=== PATIENT | male | born 1960 | race Caucasian/White ===

== ENCOUNTER 2022-08-15 17:33 | Outpatient (OUT) | payer OTHER, SELFPAY ==
[2022-08-15 21:01] LABS: Anion Gap 9.4; BUN Creatinine Ratio 16.3; Carbon Dioxide 28.3 mmol/L (21.0-32.0); Chloride 103 mmol/L (98-107); Chol HDL Ratio 2.2; Cholesterol 101 mg/dL (<=200); Estimated GFR (African America >60 (>=60); Estimated GFR (Non-African Ame >60 (>=60); Glucose 173 mg/dL (74-106); HDL Cholesterol 46 mg/dL (40-60); LDL Cholesterol Calculated 33.6 mg/dL; Potassium 3.7 mmol/L (3.5-5.1); Sodium 137 mmol/L (136-145); Triglycerides 107 mg/dL (<=150); VLDL CHOLESTEROL 21.4 mg/dL
== END 2022-08-15 17:34 | disposition home or self-care (01) ==
LOC: LAB 17:36
PROVIDERS: PCP Internal Medicine; Visit Provider Internal Medicine
DX: E11.9 Type 2 diabetes mellitus without complications (principal); E78.5 Hyperlipidemia, unspecified
CPT/HCPCS: 36415; 80048; 80061

== ENCOUNTER 2022-10-25 08:28 | Outpatient (OUT) | payer OTHER, SELFPAY ==
[2022-10-25 10:27] LABS: Creatinine Urine Random 93.74 mg/dL (20.00-300.00); Microalbum Creatinine Ratio Ur 13.8 mg/g (0.0-29.9); Microalbumin Urine Random <1.3 mg/dL (<=30.0)
[2022-10-25 12:50] LABS: Estimated Average Glucose 131 mg/dL; Glycohemoglobin A1C 6.2 % (4.5-6.2)
== END 2022-10-25 08:29 | disposition home or self-care (01) ==
LOC: LAB 08:30
PROVIDERS: PCP Internal Medicine; Visit Provider Internal Medicine
DX: E11.9 Type 2 diabetes mellitus without complications (principal)
CPT/HCPCS: 36415; 82043; 82570; 83036

== ENCOUNTER 2023-04-25 10:09 | Outpatient (OUT) | payer OTHER, SELFPAY ==
[2023-04-25 10:35] LABS: Basophils Percent Auto 0.5 % (0.2-2.0); Eosinophils Absolute Auto 0.3 10^3/uL (0.0-0.7); Eosinophils Percent Auto 3.2 % (0.9-7.0); Hemoglobin 12.9 g/dL (14.0-18.0); Immature Granulocytes Abs Auto 0.03 10^3/uL (0.00-0.03); Immature Granulocytes Pct Auto 0.4 % (0.0-0.5); Lymphocytes Absolute Auto 1.9 10^3/uL (1.2-3.8); Lymphocytes Percent Auto 24.1 % (20.5-60.0); Mean Corpuscular HGB Conc 33.1 g/dL (29.9-35.2); Mean Corpuscular Hemoglobin 28.5 pg (25.9-34.0); Mean Corpuscular Volume 86.1 fL (80.0-94.0); Mean Platelet Volume 9.5 fL (9.5-13.5); Monocytes Absolute Auto 0.6 10^3/uL (0.3-0.8); Monocytes Percent Auto 7.2 % (1.7-12.0); Neutrophils Absolute Auto 5.1 10^3/uL (1.4-6.5); Neutrophils Percent Auto 64.6 % (43.0-75.0); Platelet Count 265 10^3/uL (150-450); Red Blood Count 4.53 10^6/uL (4.70-6.10); Red Cell Distribution Width 12.6 % (11.0-15.0); White Blood Count 7.9 10^3/uL (4.0-11.0)
[2023-04-25 11:29] LABS: Alanine Aminotransferase 41 U/L (16-63); Albumin Globulin Ratio 1.1; Albumin Level 3.9 g/dL (3.4-5.0); Alkaline Phosphatase 55 U/L (46-116); Anion Gap 14.3; Aspartate Amino Transferase 19 U/L (15-37); BUN Creatinine Ratio 22.7; Bilirubin Total 1.4 mg/dL (0.2-1.0); Calcium 9.3 mg/dL (8.5-10.1); Carbon Dioxide 29.7 mmol/L (21.0-32.0); Chloride 96 mmol/L (98-107); Chol HDL Ratio 1.7; Cholesterol 86 mg/dL (<=200); Estimated GFR (African America >60 (>=60); Estimated GFR (Non-African Ame >60 (>=60); Globulin 3.7 g/dL; Glucose 120 mg/dL (74-106); HDL Cholesterol 50 mg/dL (40-60); LDL Cholesterol Calculated 15.8 mg/dL; Sodium 137 mmol/L (136-145); Total Protein 7.6 g/dL (6.4-8.2); Triglycerides 101 mg/dL (<=150); VLDL CHOLESTEROL 20.2 mg/dL
[2023-04-25 11:32] LABS: Estimated Average Glucose 148 mg/dL; Glycohemoglobin A1C 6.8 % (4.5-6.2)
[2023-04-25 13:27] LABS: Creatinine Urine Random 158.04 mg/dL (20.00-300.00); Microalbum Creatinine Ratio Ur 10.1 mg/g (0.0-29.9); Microalbumin Urine Random 1.6 mg/dL (<=30.0)
== END 2023-04-25 10:10 | disposition home or self-care (01) ==
LOC: LAB 10:10
PROVIDERS: PCP Internal Medicine; Visit Provider Internal Medicine
DX: E11.9 Type 2 diabetes mellitus without complications (principal); I10 Essential (primary) hypertension; E78.2 Mixed hyperlipidemia
CPT/HCPCS: 80053; 80061; 82043; 82570; 83036; 85025

== ENCOUNTER 2023-08-02 09:18 | Outpatient (OUT) | payer OTHER, SELFPAY ==
[2023-08-02 09:37] LABS: Basophils Percent Auto 0.6 % (0.2-2.0); Eosinophils Absolute Auto 0.3 10^3/uL (0.0-0.7); Eosinophils Percent Auto 3.9 % (0.9-7.0); Hematocrit 37.7 % (42.0-54.0); Hemoglobin 12.6 g/dL (14.0-18.0); Immature Granulocytes Abs Auto 0.02 10^3/uL (0.00-0.03); Immature Granulocytes Pct Auto 0.3 % (0.0-0.5); Lymphocytes Absolute Auto 1.6 10^3/uL (1.2-3.8); Lymphocytes Percent Auto 23.9 % (20.5-60.0); Mean Corpuscular HGB Conc 33.4 g/dL (29.9-35.2); Mean Corpuscular Hemoglobin 28.5 pg (25.9-34.0); Mean Corpuscular Volume 85.3 fL (80.0-94.0); Mean Platelet Volume 9.1 fL (9.5-13.5); Monocytes Absolute Auto 0.7 10^3/uL (0.3-0.8); Monocytes Percent Auto 10.1 % (1.7-12.0); Neutrophils Absolute Auto 4.1 10^3/uL (1.4-6.5); Neutrophils Percent Auto 61.2 % (43.0-75.0); Platelet Count 267 10^3/uL (150-450); Red Blood Count 4.42 10^6/uL (4.70-6.10); Red Cell Distribution Width 12.7 % (11.0-15.0); White Blood Count 6.7 10^3/uL (4.0-11.0)
[2023-08-02 10:01] LABS: Alanine Aminotransferase 48 U/L (16-63); Albumin Globulin Ratio 1.1; Albumin Level 3.7 g/dL (3.4-5.0); Alkaline Phosphatase 54 U/L (46-116); Anion Gap 13.2; Aspartate Amino Transferase 21 U/L (15-37); BUN Creatinine Ratio 18.6; Bilirubin Total 1.4 mg/dL (0.2-1.0); Calcium 8.8 mg/dL (8.5-10.1); Carbon Dioxide 29.9 mmol/L (21.0-32.0); Chloride 98 mmol/L (98-107); Chol HDL Ratio 1.8; Cholesterol 91 mg/dL (<=200); Estimated GFR (African America >60 (>=60); Estimated GFR (Non-African Ame >60 (>=60); Globulin 3.4 g/dL; Glucose 124 mg/dL (74-106); HDL Cholesterol 50 mg/dL (40-60); LDL Cholesterol Calculated 27.6 mg/dL; Potassium 3.1 mmol/L (3.5-5.1); Sodium 138 mmol/L (136-145); Total Protein 7.1 g/dL (6.4-8.2); Triglycerides 67 mg/dL (<=150); VLDL CHOLESTEROL 13.4 mg/dL
[2023-08-02 10:01] LABS: Creatinine Urine Random 76.52 mg/dL (20.00-300.00); Microalbum Creatinine Ratio Ur 16.9 mg/g (0.0-29.9); Microalbumin Urine Random <1.3 mg/dL (<=30.0)
[2023-08-02 10:09] LABS: Estimated Average Glucose 128 mg/dL; Glycohemoglobin A1C 6.1 % (4.5-6.2)
== END 2023-08-02 09:19 | disposition home or self-care (01) ==
LOC: LAB 09:19
PROVIDERS: PCP Internal Medicine; Visit Provider Internal Medicine
DX: E78.2 Mixed hyperlipidemia (principal); E11.9 Type 2 diabetes mellitus without complications; I10 Essential (primary) hypertension
CPT/HCPCS: 36415; 80053; 80061; 82043; 82570; 83036; 85025

== ENCOUNTER 2023-08-12 11:28 | Outpatient (OUT) | payer OTHER, SELFPAY ==
--- OUTSIDE RECORDS SUMMARY | 2023-08-12 11:49 | XMS_ITS | CCD ---
Author Organization [facility] Care Team Providers Care Sales Representative Printing Name Role Phone FAJENNIFERD, WOO H Consulting Unavailable FAWWAD, WOO H Primary Care Unavailable FAWWAD, WOO H Admitting Unavailable FAWWAD, WOO H Attending Unavailable FAWWAD, WOO H Consulting Unavailable FAWWAD, WOO H Primary Care Unavailable FAWWAD, WOO H Admitting Unavailable FAWWAD, WOO H Attending Unavailable FAWWAD, WOO H Consulting Unavailable FAWWAD, WOO H Primary Care Unavailable FAWWAD, WOO H Admitting Unavailable FAWWAD, WOO H Referring Unavailable FAWWAD, WOO H Attending Unavailable Joshua Hsieh MD Primary Care Provider Shaikh Heard MD Primary Care Provider MASTER HEARDIKH Attending Unavailable FAWWAD, WOO Attending Unavailable Allergies Allergy Classification Reported Allergen(s) Allergy Type Date of Onset Reaction(s) Facility (1 source) Penicillins Drug Allergy 02-06-2023 Diarrhea [facility] Medications Current Medications Medication Drug Class(es) Dates Sig (Normalized) Sig (Original) amLODIPine 5 mg oral tablet (2 sources) Dihydropyridine Calcium Channel Jozef Start: 03-07-2023 take 1 tablet by mouth once daily amLODIPine (Norvasc) 5 MG tablet Indications: Essential (primary) hypertension (CMS/HCC) TAKE 1 TABLET BY MOUTH DAILY 90 tablet 0 03/07/2023 Active Start: 12-05-2022 take 1 tablet by carmencita th in the morning amLODIPine (Norvasc) 10 MG tablet Take 1 tablet by mouth in the morning. 0 12/05/2022 Active aspirin 81 mg delayed release oral tablet (1 source) Platelet Aggregation Inhibitor, Nonsteroidal Anti-inflammatory Drug take 1 tablet by mouth in the morning aspirin 81 MG EC tablet Take 1 tablet by mouth in the morning. 0 Active atorvastatin 20 mg oral tablet (1 source) HMG-CoA Reductase Inhibitor Start : 12-05 take 1 tablet by mouth in the morning atorvastatin (Lipitor) 20 MG tablet Take 20 mg by mouth in the morning. 0 12/05/2022 Active glipiZIDE 5 mg oral tablet (1 source) Sulfonylurea Start : 12-05 take 1 tablet by mouth in the morning glipiZIDE (Glucotrol) 5 MG tablet Take 5 mg by mouth in the morning and 5 mg in the evening. Take before meals. 0 12/05/2022 Active hydroCHLOROthiazide 25 mg / losartan potassium 100 mg oral tablet (1 source) Thiazide Diuretic, Angiotensin 2 Receptor Jozef Start : 12-05 take 1 tablet by mouth in the morning losartan-hydroCHL OROthiazide (Hyzaar) 100-25 MG tablet Take 1 tablet by mouth in the morning. 0 12/05/2022 Active metFORMIN hydrochloride 1000 mg oral tablet (1 source) Biguanide Start : 11-12 take 1 tablet by mouth in the morning metFORMIN (Glucophage) 1000 MG tablet Take 1,000 mg by mouth in the morning and 1,000 mg in the evening. Take with meals. 0 11/12/2022 Active 1 mg dose 1.5 ml semaglutide 1.34 mg/ml pen injector (3 sources) Start : 04-03 End: 09-29 inject 1 mg by subcutaneous injection every week semaglutide (Ozempic, 1 MG/DOSE,) 2 MG/1.5ML solution pen-injector Indications: Type 2 diabetes mellitus without complication, without long-term current use of insulin (CMS/[facility]) Inject 1 mg under the skin 1 (one) time per week 9 mL 1 04/03/2023 09/30/2023 Active Start: 02-06-2023 End: 04-03-2023 inject 0.25 mg by subcutaneous injection every week semaglutide (Ozempic, 0.25 or 0.5 MG/DOSE,) 2 MG/1.5ML solution pen-injector Indications: Type 2 diabetes mellitus without complication, without long-term current use of insulin (CMS/HCC) Inject 0.25 mg under the skin 1 (one) time per week 1.5 mL 0 02/06/2023 04/03/2023 Discontinued (Dose adjustment) Start: 02-06-2023 End: 05-07-2023 semaglutide (Ozempic, 0.25 o r 0.5 MG/DOSE,) 2 MG/1.5ML solution pen-injector Indications: Type 2 diabetes mellitus without complication, without long-term current use of insulin (CMS/HCC) Inject 0.5 mg under the skin 1 (one) time per week After patient has used 0.25mg dose 4.5 mL 0 02/06/2023 05/07/2023 Active Problems Problem Classification Problem Date Documented Da te Episodic/Chronic Diabetes mellitus without complication (8 sources) Type 2 diabetes mellitus without complications; Translations: [Type 2 diabetes mellitus without complication] Onset: 06-19-2018 Chronic Disorders of lipid metabolism (6 sources) Hyperlipidemia, unspecified; Translations: [Mixed hyperlipidemia] Onset: 06-19-2018 Chronic Essential hypertension (3 sources) Essential (primary) hypertension; Translations: [Benign hypertension] Onset: 11-05-2014 12-03-2021 Chronic Results Test Name Value Interpretation Reference Range Facility GLYCOHEMOGLOBIN A1Con 2022 ADA RECOMMENDATION SEE BELOW Normal [facility] Comment on above: Result Comment: ADA RECOMMENDED LIMIT 4.0 - 6.0 ADA THERAPEUTIC TARGET < 7.0 ACTION SUGGESTED > 7.0 Performed By: #### A 1C #### [facility] [address] [place] [address] Dr. Latisha Lindo Glucose [Mass/Vol] 194 mg/dL Normal [facility] Comment on above: Performed By: #### A 1C #### [facility] [address] [address] [address] Latisha Lindo HbA1c (Bld) [Mass fraction] 8.4 % Critically high 4.5-6.[address] [facility] Comment on above: Performed By: #### A 1C #### [facility] [address] [place] [address] Dr. Latisha Lindo CBC AUTO DIFFon 09-21-2021 BASO # 0.0 103/ul Normal 0.0-0.1 [facility] Comment on above: Performed By: #### C BC #### [facility] [address] [address] [address] Latisha Lindo Basophils/100 WBC (Bld) 0.6 % Normal 0.2-2.0 [facility] Comment on above: Performed By: #### C BC #### [facility] [address] [place] [address] Dr. Latisha Lindo EO # 0.2 103/ul Normal 0.0-0.7 [facility] Comment on above: Performed By: #### C BC #### [facility] [address] [place] [address] Dr. Latisha Lindo Eosinophils/100 WBC (Bld) 3.1 % Normal 0.9-7.0 [facility] Comment on above: Performed By: #### C BC #### [facility] [address] [place] [address] Dr. Latisha Lindo Erythrocyte distribution width (RBC) [Ratio] 13.1 % Normal 11.0-15.0 [facility] Comment on above: Performed By: #### C BC #### [facility] [address] [place] [address] Dr. Latisha Lindo Hematocrit (Bld) [Volume fraction] 40.8 % Critically low 42.0-54.0 [facility] Comment on above: Performed By: #### C BC #### [facility] [address] [place] [address] Dr. Latisha Lindo Hemoglobin (Bld) [Mass/Vol] 13.4 g/dL Critically low 14.0-18.0 [facility] Comment on above: Performed By: #### C BC #### [facility] [address] [place] [address] Dr. Latisha Lindo IG # 0.02 10e3/ul Normal 0.00-0.03 [facility] Comment on above: Performed By: #### C BC #### [facility] [address] [place] [address] Dr. Latisha Lindo IG % 0.3 % Normal 0.0-0.5 [facility] Comment on above: Performed By: #### C BC #### [facility] [address] [place] [address] Dr. Latisha Lindo LYMPH # 1.5 103/ul Normal 1.2-3.8 [facility] Comment on above: Performed By: #### C BC #### [facility] [address] [place] [address] Dr. Latisha Lindo Lymphocytes/100 WBC (Bld) 22.3 % Normal 20.5-60.0 [facility] Comment on above: Performed By: #### C BC #### [facility] [address] [place] [address] Dr. Latisha Lindo MANUAL DIFF REQ NO Normal [facility] Comment on above: Performed By: #### C BC #### [facility] [address] [place] [address] Dr. Latisha Lindo MCH (RBC) [Entitic mass] 28.8 pg Normal 25.9-34.0 [facility] Comment on above: Performed By: #### C BC #### [facility] [address] [place] [address] Dr. Latisha Lindo MCHC (RBC) [Mass/Vol] 32.8 g/dL Normal 29.9-35.2 [facility] Comment on above: Performed By: #### C BC #### [facility] [address] [place] [address] Dr. Latisha Lindo MCV (RBC) [Entitic vol] 87.6 fL Normal 80.0-94.0 [facility] Comment on above: Performed By: #### C BC #### [facility] [address] [place] [address] Dr. Latisha Lindo MONO # 0.6 103/ul Normal 0.3-0.8 [facility] Comment on above: Performed By: #### C BC #### [facility] [address] [place] [address] Dr. Latisha Lindo Monocytes/100 WBC (Bld) 8.3 % Normal 1.7-12.0 [facility] Comment on above: Performed By: #### C BC #### [facility] [address] [address] [address] Latisha Lindo NEUT # 4.4 103/ul Normal 1.4-6.5 [facility] Comment on above: Performed By: #### C BC #### [facility] [address] [address] [address] Latisha Lindo Neutrophils/100 WBC (Bld) 65.4 % Normal 43.0-75.0 [facility] Comment on above: Performed By: #### C BC #### [facility] [address] [address] [address] Latisha Lindo Platelet mean volume (Bld) [Entitic vol] 9.7 fL Normal 9.5-13.5 [facility] Comment on above: Performed By: #### C BC #### [facility] [address] [place] [address] Dr. Latisha Lindo PLT 253 103/ul Normal 150-450 [facility] Comment on above: Performed By: #### C BC #### [facility] [address] [place] [address] Dr. Latisha Lindo RBC 4.66 106/ul Critically low 4.70-6.10 [facility] Comment on above: Performed By: #### C BC #### [facility] [address] [place] [address] Dr. Latisha Lindo WBC 6.8 103/ul Normal 4.0-11.0 [facility] Comment on above: Performed By: #### C BC #### [facility] [address] [place] [address] Dr. Latisha Lindo GLYCOHEMOGLOBIN A1Con 2021 ADA RECOMMENDATION SEE BELOW Normal [facility] Comment on above: Result Comment: ADA RECOMMENDED LIMIT 4.0 - 6.0 ADA THERAPEUTIC TARGET < 7.0 ACTION SUGGESTED > 7.0 Performed By: #### A 1C #### [facility] [address] [place] [address] Dr. Latisha Lindo Glucose [Mass/Vol] 189 mg/dL Normal [facility] Comment on above: Performed By: #### A 1C #### [facility] [address] [address] [address] Latisha Lindo HbA1c (Bld) [Mass fraction] 8.2 % Critically high 4.5-6.2 [facility] Comment on above: Performed By: #### A 1C #### [facility] [address] [address] [address] Latisha Lindo LIPID PROFILEon 09-21-2021 CHOL-HDL RATIO NORM SEE BELOW Normal [facility] Comment on above: Result Comment: 3.3 - 4.4 LOW RISK 4.4 - 7.1 AVERAGE RISK 7.1 - 11.0 MODERATE RISK >11.0 HIGH RISK Performed By: #### L IPID, BMP #### [facility] [address] [place] [address] Dr. Latisha Lindo Cholesterol [Mass/Vol] 126 mg/dL Normal <=200 [facility] Comment on above: Performed By: #### L IPID, BMP #### [facility] [address] [place] [address] Dr. Latisha Lindo Cholesterol in HDL [Mass/Vol] 54 mg/dL Normal 40-60 [facility] Comment on above: Performed By: #### L IPID, BMP #### [facility] [address] [place] [address] Dr. Latisha Lindo Cholesterol in LDL [Mass/Vol] 58.2 mg/dL Normal [facility] Comment on above: Performed By: #### L IPID, BMP #### [facility] [address] [place] [address] Dr. Latisha Lindo Cholesterol.total/Cho lesterol in HDL [Mass ratio] 2.3 {ratio} Normal [facility] Comment on above: Performed By: #### L IPID, BMP #### [facility] [address] [place] [address] Dr. Latisha Lindo HDL NORMAL > or = 60 mg/dl - LOW CARDIOVASCULAR RISK <40 mg/dl - HIGH CARDIOVASCULAR RISK Normal [facility] Comment on above: Performed By: #### L IPID, BMP #### [facility] [address] [address] [address] Latisha Lindo LDL CALC NORMAL SEE BELOW Normal [facility] Comment on above: Result Comment: <100 mg/dl OPTIMAL 100 - 129 mg/dl NEAR OR ABOVE OPTIMAL 130 - 159 mg/dl BORDERLINE HIGH 160 - 189 mg/dl HIGH >190 mg/dl VERY HIGH Performed By: #### L IPID, BMP #### [facility] [address] [address] [address] Latisha Lindo Triglyceride [Mass/Vol] 69 mg/dL Normal <=150 [facility] Comment on above: Performed By: #### L IPID, BMP #### [facility] [address] [address] [address] Latisha Lindo VLDL CALC 13.8 mg/dL Normal [facility] Comment on above: Performed By: #### L IPID, BMP #### [facility] [address] [place] [address] Dr. Latisha Lindo PROF CHEM 8 (BAS METB)on Anion gap [Moles/Vol] 16.1 mmol/L Normal [facility] Comment on above: Performed By: #### L IPID, BMP #### [facility] [address] [place] [address] Dr. Latisha Lindo Calcium [Mass/Vol] 9.8 mg/dL Normal 8.5-10.1 [facility] Comment on above: Performed By: #### L IPID, BMP #### [facility] [address] [place] [address] Dr. Latisha Lindo Chloride [Moles/Vol] 103 mmol/L Normal 98-107 [facility] Comment on above: Performed By: #### L IPID, BMP #### [facility] [address] [place] [address] Dr. Latisha Lindo CO2 [Moles/Vol] 25.7 mmol/L Normal 21.0-32.0 [facility] Comment on above: Performed By: #### L IPID, BMP #### [facility] [address] [place] [address] Dr. Latisha Lindo Creatinine [Mass/Vol] 1.02 mg/dL Normal 0.70-1.30 [facility] Comment on above: Performed By: #### L IPID, BMP #### [facility] [address] [place] [address] Dr. Latisha Lindo EGFR-AF SURINAMESE >60 Normal >=60 [facility] Comment on above: Performed By: #### L IPID, BMP #### [facility] [address] [address] [address] Latisha Lindo EGFR-NON AF SURINAMESE >60 Normal >=60 [facility] Comment on above: Performed By: #### L IPID, BMP #### [facility] [address] [place] [address] Dr. Latisha Lindo Glucose [Mass/Vol] 179 mg/dL Critically high 74-106 [facility] Comment on above: Performed By: #### L IPID, BMP #### [facility] [address] [place] [address] Dr. Latisha Lindo Potassium [Moles/Vol] 3.8 mmol/L Normal 3.5-5.1 [facility] Comment on above: Performed By: #### L IPID, BMP #### [facility] [address] [place] [address] Dr. Latisha Lindo Sodium [Moles/Vol] 141 mmol/L Normal 136-145 [facility] Comment on above: Performed By: #### L IPID, BMP #### [facility] [address] [place] [address] Dr. Latisha Lindo Urea nitrogen [Mass/Vol] 21.0 mg/dL Critically high 7.0-18.0 [facility] Comment on above: Performed By: #### L IPID, BMP #### [facility] [address] [place] [address] Dr. Latisha Lindo Urea nitrogen/Creatinine [Mass ratio] 20.6 mg/mg Normal [facility] Comment on above: Performed By: #### L IPID, BMP #### [facility] [address] [place] [address] Dr. Latisha Lindo GLYCOHEMOGLOBIN A1Con 04-11- 2022 ADA RECOMMENDATION ADA THERAPEUTIC TARGET 6.0 - 7.0 ACTION SUGGESTED > 7.0 Normal [facility] Comment on above: Performed By: #### A 1C #### [facility] [address] [address] [address] Latisha Lindo Glucose [Mass/Vol] 171 mg/dL Normal [facility] Comment on above: Performed By: #### A 1C #### [facility] [address] [place], [place] [address] Dr. Latisha Lnido HbA1c (Bld) [Mass fraction] 7.6 % Critically high <=6.0 [facility] Comment on above: Performed By: #### A 1C #### [facility] [address] [address] [address] Latisha Lindo Colonoscopy w/ or w/o biopsy on 05-25-2013 Transverse colon polyp Rectal polyp Otherwise normal [facility] This order was created through External Result Entry [facility] Encounters Encounter Date Encounter Type Care Provider Facility Start: 05-08-2023 End: 05-08-2023 ambulatory SHAIKH SHEILA Not Available Start: 04-03-2023 Orders Only Shaikh Sheila RODRIGUEZ Work Phone: [facility] Comment on above: Type 2 diabetes jorje itus without complication, without long- term current use of insulin ([facility]) (Primary Dx) Start: 02-06-2023 Patient encounter status Shaik ailyn Heard MD Work Phone: [facility] Start: 02-06-2023 End: 02-06-2023 ambulatory WOO FAWWAD Not Available Start: 03-13-2022 End: 03-14-2022 ambulatory WOO H FAWWAD Facility:[facility]1 Start: 09-21-2021 End: 09-22-2021 ambulatory WOO H FAWWAD Facility:[facility] Start: 05-29-2021 End: 05-30-2021 ambulatory WOO H FAWWAD Facility:[facility] Start: 05-25-2013 Conversion Encounter Joshua guerrero MD Work Phone: [facility] Start: 05-25-2013 Legacy Encounter Joshua martinez MD Work Phone: [facility] Procedures Date Procedure Procedure Detail Performing Clinician Start: 05-25-2013 COLONOSCOPY W/ OR W/ O BIOPSY Joshua Hsieh MD Work Phone: Plan of Treatment Date Care Activity Detail Author Start: 03-21-2024 Glaucoma screening Diabetes: R etinopathy Screening [facility] Start: 12-20-2023 Screening for malign ant neoplasm of colon [facility] Start: 10-26-2023 Urine screening for protein Diabetes: Urine Protein Screening [facility] Start: 05-08-2023 End: 05-08-2023 Patient encounter procedure 05/08/2023 10:00 AM EDT Office Visit [facility] [address] [place] [address] Shaikh Heard MD [address] [place] [id number] [facility] Start: 05-07-2023 Hemoglobin A1c measurement Diabetes: Hemoglobin A1C [facility] Start: 1960 Screening for malign ant neoplasm of colon [facility] Immunizations Immunization Date Immunization Notes Care Provider [facility] 01-22-2019 influenza, injectabl e, quadrivalent, preservative free Shaikh Sheila RODRIGUEZ Work Phone: [facility] 01-22-2019 zoster vaccine recombinant S jana Heard MD Work Phone: [facility] 12-18-2017 influenza, injectabl e, quadrivalent, contains preservative Shaikh Sheila RODRIGUEZ Work Phone: [facility] 12-06-2016 influenza, injectabl e, quadrivalent, contains preservative Shaikh Sheila RODRIGUEZ Work Phone: [facility] 12-07-2015 influenza, injectabl e, quadrivalent, contains preservative Shaikh Sheila RODRIGUEZ Work Phone: [facility] 05-05-2015 tetanus toxoid, redu geraldine diphtheria toxoid, and acellular pertussis vaccine, adsorbed Shaikh Sheila RODRIGUEZ Work Phone: [facility] 11-05-2014 influenza virus vacc ine, whole virus Shaikh Sheila RODRIGUEZ Work Phone: [facility] 12-10-2013 pneumococcal polysaccharide vaccine, 23 valent Shaikh Sheila RODRIGUEZ Work Phone: [facility] Payers Date Payer Category Payer Unknown [id number] 2022 Unknown [employer] [id number] 2022-Present [phone] [address] [place] [address] [id number] 1960 Unknown [id number] 1960 Unknown [id number] 1960 Unknown [id number] 1960 Unknown [id number] 1960 Unknown [id number] 1959 Unknown [id number] Social History Date Type Detail Facility [facility] consumption [facility] Start: 1960 Sex Assigned At Not on file [facility] Start: 02-04-2023 End: 02-06-2023 Gender identity Not on file [facility] Start: 02-06-[address] [facility] Never smoked tobacco [facility] Start: 02-06-2023 Tobacco use and exposure Smokeless tobacco non-user [facility] Start: 02-20-2023 Alcohol intake Current drinke r of alcohol (finding) [facility] Start: 02-04-2023 End: 02-06-2023 History of Social function [facility] Within the last year , have you been afraid of your partner or ex-partner? No [facility] Are you now , , , , never or living with a partner? [facility] How often to you hav e a drink containing alcohol? 2-3 time sa week [facility] How many standard drinks containing alcohol do you have on a typical day? 3 or 4 [facility] How often do you hav e 6 or more drinks on 1 occasion? Less than monthly [facility] How hard is it for y ou to pay for the very basics like food, housing, medical care, and heating Not hard at all [facility] Do you feel stress - tense, restless, nervous, or anxious, or unable to sleep at night because your mind is troubled all the time - these days [OSQ] Not at all [facility] (I/We) worried wheth er (my/our) food would run out before (I/we) got money to buy more. Never true [facility] Start: 02-06-2023 Alcohol Comment occassional [facility] NEGATED: Highlighted rowStart: LITF History of tobacco use Passive smoker [facility] Medical Equipment Procedure Code Equipment Code Equipment Origin al Text Equipment Identifier Dates 1 each by Other route in the morning. [id number] Start: 03-22-2022 1 each by Other route in the morning. [id number] Start: 01-26-2023 Evaluation note Note Date & Type Note Facility Evaluation note Diagnosis Type 2 diabetes mellitus without complication, without long-term current use of insulin ([facility])- Primary documented in this encounter [facility] Summary Purpose Family History No Family History Records FoundNo Family History Records Found Advance Directives No Advanced Directives Records FoundNo Advanced Directives Records Found Additional Source Comments (unrecognized sect ion and content) No Status Records FoundNo Status Records Found INFORMATION SOURCE (unrecogn ized section and content) DATE CREATED AUTHOR 03/15/2022 [facility] DATE CREATED AUTHOR AUTHOR'S ORGANIZ ATION 05/09/2023 [facility] Care Teams (unrecognized sec tion and content) Sales Representative Printing Relationship Specialty Start Date End Date Joshua Hsieh MD [facility] [address] [place] [address] PCP - General 10/12/15 04/19/22 Sales Representative Printing Relationship Specialty Start Date End Date Shaikh Heard MD PCP - General Internal Medicine 08/24/22 FOR RECORDS PERTAINING TO PATIENTS WHO ARE OR HAVE BEEN ENROLLED IN A CHEMICAL DEPENDENCY/SUBSTANCEABUSE PROGRAM, SOME INFORMATION MAY BE OMITTED. This clinical summary was aggregated from multiple sources. Caution should be exercised in using it in the provision of clinical care. This summary normalizes information from multiple sources, and as a consequence, information in this document may materially change the coding, format and clinical context of patient data. In addition, data may be omitted in some cases. CLINICAL DECISIONS SHOULD BE BASED ON THE PRIMARY CLINICAL RECORDS. [facility] [facility]. provides no warranty or guarantee of the accuracy or completeness of information in this document.
[2023-08-12 12:26] LABS: Percent Iron Saturation 10.2 %
[2023-08-13 05:08] LABS: Transferrin 275 mg/dL (177-329)
== END 2023-08-12 11:29 | disposition home or self-care (01) ==
LOC: LAB 11:29
PROVIDERS: PCP Internal Medicine; Visit Provider Internal Medicine
DX: D50.9 Iron deficiency anemia, unspecified (principal)
CPT/HCPCS: 36415; 82607; 82728; 82746; 83540; 83550; 84466

== ENCOUNTER 2023-09-10 14:33 | Outpatient (OUT) | payer OTHER, SELFPAY ==
--- OUTSIDE RECORDS SUMMARY | 2023-09-10 14:36 | XMS_ITS | CCD ---
Author Organization [facility] Care Team Providers Care Local Hazmat Driver Name Role Phone FAWJOSEPHINED, WOO H Consulting Unavailable FAWWAD, WOO H [...] Joshua Hsieh MD Primary Care Provider Shaikh Sosa MD Primary Care Provider FALACY, WOO Attending Unavailable FAWWAD, WOO Attending Unavailable FAWWAD, WOO Attending Unavailable DUSTY COLEMAN Attending Unavailable Allergies Allergy Classification Reported Allergen(s) Allergy Type Date of Onset Reaction(s) Facility (1 source) Penicillins Drug Allergy 02-06-2023 Diarrhea [facility] Healthcare Medications Current Medications Medication Drug Class(es) [...] complication, without long-term current use of insulin ([facility]) Inject 1 mg under the [...] 2022 ADA RECOMMENDATION SEE BELOW Normal [facility] Comment on above: Result Comment: ADA RECOMMENDED LIMIT 4.0 - 6.0 ADA THERAPEUTIC TARGET < 7.0 ACTION SUGGESTED > 7.0 Performed By: #### A 1C #### [facility] [address] [address] [address] Latisha Lindo Glucose [Mass/Vol] 194 mg/dL Normal [facility] Comment on above: Performed By: #### A 1C #### [facility] [address] [address] [address] Latisha Lindo HbA1c (Bld) [Mass fraction] 8.4 % Critically high 4.5-6.2 [facility] Comment on above: Performed By: #### A 1C #### [facility] [address] [address] [address] Latisha Lindo CBC AUTO DIFFon 09-21-2021 BASO # 0.0 103/ul Normal 0.0-0.1 [facility] Comment on above: Performed By: #### C BC #### [facility] [address] [place] [address] Dr. Latisha Lindo Basophils/100 WBC (Bld) 0.6 % Normal 0.2-2.0 [facility] Comment on above: Performed By: #### C BC #### [facility] [address] [place] [address] Dr. Latisha Lindo EO # 0.2 103/ul Normal 0.0-0.7 [facility] Comment on above: Performed By: #### C BC #### [facility] [address] [place] [address] Dr. Latisha Lindo Eosinophils/100 WBC (Bld) 3.1 % Normal 0.9-7.0 [facility] Comment on above: Performed By: #### C BC #### [facility] [address] [place] [address] Dr. Latisha Lindo Erythrocyte distribution width (RBC) [Ratio] 13.1 % Normal 11.0-15.0 [facility] Comment on above: Performed By: #### C BC #### [facility] [address] [place] [address] Dr. Latisha Lindo Hematocrit (Bld) [Volume fraction] 40.8 % Critically low 42.0-54.0 [facility] Comment on above: Performed By: #### C BC #### [facility] [address] [place] [address] Dr. Latisha Lindo Hemoglobin (Bld) [Mass/Vol] 13.4 g/dL Critically low 14.0-18.0 [facility] Comment on above: Performed By: #### C BC #### [facility] [address] [place] [address] Dr. Latisha Lindo IG # 0.02 10e3/ul Normal 0.00-0.03 [facility] Comment on above: Performed By: #### C BC #### [facility] [address] [place] [address] Dr. Latisha Lindo IG % 0.3 % Normal 0.0-0.5 [facility] Comment on above: Performed By: #### C BC #### [facility] [address] [place] [address] Dr. Latisha Lindo LYMPH # 1.5 103/ul Normal 1.2-3.8 [facility] Comment on above: Performed By: #### C BC #### [facility] [address] [place] [address] Dr. Latisha Lindo Lymphocytes/100 WBC (Bld) 22.3 % Normal 20.5-60.0 [facility] Comment on above: Performed By: #### C BC #### [facility] [address] [place] [address] Dr. Latisha Lindo MANUAL DIFF REQ NO Normal [facility] Comment on above: Performed By: #### C BC #### [facility] [address] [place] [address] Dr. Latisha Lindo MCH (RBC) [Entitic mass] 28.8 pg Normal 25.9-34.0 [facility] Comment on above: Performed By: #### C BC #### [facility] [address] [place] [address] Dr. Latisha Lindo MCHC (RBC) [Mass/Vol] 32.8 g/dL Normal 29.9-35.2 [facility] Comment on above: Performed By: #### C BC #### [facility] [address] [place] [address] Dr. Latisha Lindo MCV (RBC) [Entitic vol] 87.6 fL Normal 80.0-94.0 [facility] Comment on above: Performed By: #### C BC #### [facility] [address] [place] [address] Dr. Latisha Lindo MONO # 0.6 103/ul Normal 0.3-0.8 [facility] Comment on above: Performed By: #### C BC #### [facility] [address] [place] [address] Dr. Latisha Lindo Monocytes/100 WBC (Bld) 8.3 % Normal 1.7-12.0 [facility] Comment on above: Performed By: #### C BC #### [facility] [address] [place] [address] Dr. Latisha Lindo NEUT # 4.4 103/ul Normal 1.4-6.5 [facility] Comment on above: Performed By: #### C BC #### [facility] [address] [place] [address] Dr. Latisha Lindo Neutrophils/100 WBC (Bld) 65.4 % Normal 43.0-75.0 [facility] Comment on above: Performed By: #### C BC #### [facility] [address] [place] [address] Dr. Latisha Lindo Platelet mean volume (Bld) [Entitic vol] 9.7 fL Normal 9.5-13.5 [facility] Comment on above: Performed By: #### C BC #### [facility] [address] [place] [address] Dr. Latisha Lindo PLT 253 103/ul Normal 150-450 [facility] Comment on above: Performed By: #### C BC #### [facility] [address] [place] [address] Dr. Latisha Lindo RBC 4.66 106/ul Critically low 4.70-6.10 [facility] Comment on above: Performed By: #### C BC #### [facility] [address] [place] [address] Dr. Latisha Lindo WBC 6.8 103/ul Normal 4.0-11.0 [facility] Comment on above: Performed By: #### C BC #### [facility] [address] [place] [address] Dr. Latisha Lindo GLYCOHEMOGLOBIN A1Con 2021 ADA RECOMMENDATION SEE BELOW Normal [facility] Comment on above: Result Comment: ADA RECOMMENDED LIMIT 4.0 - 6.0 ADA THERAPEUTIC TARGET < 7.0 ACTION SUGGESTED > 7.0 Performed By: #### A 1C #### [facility] [address] [place] [address] Dr. Latisha Lindo Glucose [Mass/Vol] 189 mg/dL Normal [facility] Comment on above: Performed By: #### A 1C #### [facility] [address] [address] [address] Latisha Lindo HbA1c (Bld) [Mass fraction] 8.2 % Critically high 4.5-6.2 [facility] Comment on above: Performed By: #### A 1C #### [facility] [address] [address] [address] Latisha Lindo LIPID PROFILEon 09-21-2021 CHOL-HDL RATIO NORM SEE BELOW Normal [facility] Comment on above: Result Comment: 3.3 - 4.4 LOW RISK 4.4 - 7.1 AVERAGE RISK 7.1 - 11.0 MODERATE RISK >11.0 HIGH RISK Performed By: #### L IPID, BMP #### [facility] [address] [place] [address] Dr. Latisha Lindo Cholesterol [Mass/Vol] 126 mg/dL Normal <=200 [facility] Comment on above: Performed By: #### L IPID, BMP #### [facility] [address] [address] [address] Latisha Lindo Cholesterol in HDL [Mass/Vol] 54 mg/dL Normal 40-60 [facility] Comment on above: Performed By: #### L IPID, BMP #### [facility] [address] [place] [address] Dr. Latisha Lindo Cholesterol in LDL [Mass/Vol] 58.2 mg/dL Normal [facility] Comment on above: Performed By: #### L IPID, BMP #### [facility] [address] [address] [address] aLtisha Lindo Cholesterol.total/Cho lesterol in HDL [Mass ratio] 2.3 {ratio} Normal [facility] Comment on above: Performed By: #### L IPID, BMP #### [facility] [address] [address] [address] Latisha Lindo HDL NORMAL > or = 60 mg/dl - LOW CARDIOVASCULAR RISK <40 mg/dl - HIGH CARDIOVASCULAR RISK Normal [facility] Comment on above: Performed By: #### L IPID, BMP #### [facility] [address] [place] [address] Dr. Latisha Lindo LDL CALC NORMAL SEE BELOW Normal [facility] Comment on above: Result Comment: <100 mg/dl OPTIMAL 100 - 129 mg/dl NEAR OR ABOVE OPTIMAL 130 - 159 mg/dl BORDERLINE HIGH 160 - 189 mg/dl HIGH >190 mg/dl VERY HIGH Performed By: #### L IPID, BMP #### [facility] [address] [place] [address] Dr. Latisha Lindo Triglyceride [Mass/Vol] 69 mg/dL Normal <=150 [facility] Comment on above: Performed By: #### L IPID, BMP #### [facility] [address] [place] [address] Dr. Latisha Lindo VLDL CALC 13.8 mg/dL Normal [facility] Comment on above: Performed By: #### L IPID, BMP #### [facility] [address] [place] [address] Dr. Latisha Lindo PROF CHEM 8 (BAS METB)on Anion gap [Moles/Vol] 16.1 mmol/L Normal [facility] Comment on above: Performed By: #### L IPID, BMP #### [facility] [address] [place] [address] Dr. Latisha Lindo Calcium [Mass/Vol] 9.8 mg/dL Normal 8.5-10.1 [facility] Comment on above: Performed By: #### L IPID, BMP #### [facility] [address] [place] [address] Dr. Latisha Lindo Chloride [Moles/Vol] 103 mmol/L Normal 98-107 [facility] Comment on above: Performed By: #### L IPID, BMP #### [facility] [address] [place] [address] Dr. Latisha Lindo CO2 [Moles/Vol] 25.7 mmol/L Normal 21.0-32.0 [facility] Comment on above: Performed By: #### L IPID, BMP #### [facility] [address] [address] [address] Latisha Lindo Creatinine [Mass/Vol] 1.02 mg/dL Normal 0.70-1.30 [facility] Comment on above: Performed By: #### L IPID, BMP #### [facility] [address] [address] [address] Latisha Lindo EGFR-AF KYRGYZ >60 Normal >=60 [facility] Comment on above: Performed By: #### L IPID, BMP #### [facility] [address] [address] [address] Latisha Lindo EGFR-NON AF KYRGYZ >60 Normal >=60 [facility] Comment on above: Performed By: #### L IPID, BMP #### [facility] [address] [address] [address] Latisha Lindo Glucose [Mass/Vol] 179 mg/dL Critically high 74-106 [facility] Comment on above: Performed By: #### L IPID, BMP #### [facility] [address] [place] [address] Dr. Latisha Lindo Potassium [Moles/Vol] 3.8 mmol/L Normal 3.5-5.1 [facility] Comment on above: Performed By: #### L IPID, BMP #### [facility] [address] [place] [address] Dr. Latisha Lindo Sodium [Moles/Vol] 141 mmol/L Normal 136-145 [facility] Comment on above: Performed By: #### L IPID, BMP #### [facility] [address] [place] [address] Dr. Latisha Lindo Urea nitrogen [Mass/Vol] 21.0 mg/dL Critically high 7.0-18.0 [facility] Comment on above: Performed By: #### L IPID, BMP #### [facility] [address] [place] [address] Dr. Latisha Lindo Urea nitrogen/Creatinine [Mass ratio] 20.6 mg/mg Normal [facility] Comment on above: Performed By: #### L IPID, BMP #### [facility] [address] [place], [place] [address] Dr. Latisha Lindo GLYCOHEMOGLOBIN A1Con 2021 ADA RECOMMENDATION ADA THERAPEUTIC TARGET 6.0 - 7.0 ACTION SUGGESTED > 7.0 Normal [facility] Comment on above: Performed By: #### A 1C #### [facility] [address], [place] [address] Dr. Latisha Lindo Glucose [Mass/Vol] 171 mg/dL Normal [facility] Comment on above: Performed By: #### A 1C #### [facility] [address], [place] [address] Dr. Latisha Lindo HbA1c (Bld) [Mass fraction] 7.6 % Critically high <=6.0 [facility] Comment on above: Performed By: #### A 1C #### [facility] [address] [address] [address] Latisha Lindo Colonoscopy w/ or w/o biopsy on 05-25-2013 Transverse colon polyp Rectal polyp Otherwise normal [facility] This order was created through External Result Entry [facility] Encounters Encounter Date Encounter Type Care Provider Facility Start: 08-21-2023 End: 08-21-2023 ambulatory DUSTY COLEMAN Not Available Start: 08-12-2023 End: 08-12-2023 ambulatory SHAIKH SHEILA Not Available Start: 05-08-2023 End: 05-08-2023 ambulatory SHAIKH SHEILA Not Available Start: 04-03-2023 Orders Only Shaikh Sheila RODRIGUEZ Work Phone: [facility] Comment on above: Type 2 diabetes jorje itus without complication, without long- term current use of insulin ([facility]) (Primary Dx) Start: 02-06-2023 Patient encounter status Shaik ailyn Sosa MD Work Phone: [facility] Start: 02-06-2023 End: 02-06-2023 ambulatory SHAIKH SHEILA Not Available Start: 03-13-2022 End: 03-14-2022 ambulatory SHAIKH Ailyn SOSA Facility: Start: 09-21-2021 End: 09-22-2021 ambulatory SHAIKH Ailyn SOSA Facility:[facility] Start: 05-29-2021 End: 05-30-2021 ambulatory [facility] Ailyn SOSA Facility:[facility] Start: 05-25-2013 Conversion Encounter Joshua guerrero MD Work Phone: [facility] Start: 05-25-2013 Legacy Encounter Joshua martinez MD Work Phone: [facility] Procedures Date Procedure Procedure Detail Performing Clinician Start: 05-25-2013 COLONOSCOPY W/ OR W/ O BIOPSY Joshua Hsieh MD Work Phone: Plan of Treatment Date Care Activity Detail Author Start: 03-21-2024 Glaucoma screening Diabetes: R etinopathy Screening [facility] Start: 12-20-2023 Screening for malign ant neoplasm of colon [facility] Start: 10-26-2023 Urine screening for protein Diabetes: Urine Protein Screening [facility] Start: 05-08-2023 End: 05-08-2023 Patient encounter procedure 05/08/2023 10:00 AM EDT Office Visit [facility] [address] [place] [address] Shaikh Sosa MD [address] [place] [id number] [facility] Start: 05-07-2023 Hemoglobin A1c measurement Diabetes: Hemoglobin A1C [facility] Start: 1960 Screening for malign ant neoplasm of colon [facility] Immunizations Immunization Date Immunization Notes Care Provider [facility] 01-22-2019 influenza, injectabl e, quadrivalent, preservative free Shaikh Sheila RODRIGUEZ Work Phone: [facility] 01-22-2019 zoster vaccine recombinant S jana Sosa MD Work Phone: [facility] 12-18-2017 influenza, injectabl e, quadrivalent, contains preservative Shaikh Sheila RODRIGUEZ Work Phone: [facility] 12-06-2016 influenza, injectabl e, quadrivalent, contains preservative Shaikh Sheila RODRIGUEZ Work Phone: [facility] 12-07-2015 influenza, injectabl e, quadrivalent, contains preservative Shaikh Sheila RODRIGUEZ Work Phone: [facility] 05-05-2015 tetanus toxoid, redu geraldine diphtheria toxoid, and acellular pertussis vaccine, adsorbed Shaikh Sheila RODRIGUEZ Work Phone: [facility] 11-05-2014 influenza virus vacc ine, whole virus Shaikh Sheila RODRIGUEZ Work Phone: [facility] 12-10-2013 pneumococcal polysaccharide vaccine, 23 valent Shaikh Sheila RODRIGUEZ Work Phone: [facility] Payers Date Payer Category Payer Unknown [facility] [id number] 2022-[facility] [phone] [address] [place] [id number] 2022 Unknown [id number] 1960 Unknown [id number] 1960 Unknown [id number] 1960 Unknown [id number] 93 1960 Unknown [id number] 1960 Unknown [id number] 1960 Unknown [id number] 1960 Unknown [id number] 1959 Unknown [id number] Social History Date Type Detail Facility Tobacco smoking stat [facility] Tobacco smoking consumption unknown [facility] Start: 1960 Sex Assigned At Not on file [facility] Start: 02-04-2023 End: 02-06-2023 Gender identity Not on file [facility] Start: 02-06-2023 Tobacco smoking stat [facility] Never smoked tobacco [facility] Start: 02-06-2023 Tobacco use and exposure Smokeless tobacco non-user [facility] Start: 02-20-2023 Alcohol intake Current drinke [...] Not at all [facility] (I/We) worried yessenia er (my/our) food would run out before (I/we) got money to buy more. Never true [facility] Start: 02-06-2023 Alcohol Comment occassional [facility] NEGATED: Highlighted rowStart: CHRISTOPHER History of tobacco use Passive smoker [facility] Medical Equipment Procedure Code Equipment Code Equipment Origin al Text Equipment Identifier Dates 1 each by Other route in the morning. [id number] Start: 03-22-2022 1 each by Other route in the morning. [id number] Start: 01-26-2023 Evaluation note Note Date & Type Note Facility Evaluation note Diagnosis Type 2 diabetes mellitus without complication, without long-term current use of insulin ([facility])- Primary documented in this encounter [facility] Summary Purpose Family History No Family History Records FoundNo Family History Records Found Advance Directives No Advanced Directives Records FoundNo Advanced Directives Records Found Additional Source Comments (unrecognized sect ion and content) No Status Records FoundNo Status Records Found INFORMATION SOURCE (unrecogn ized section and content) DATE CREATED AUTHOR 03/15/2022 [facility] DATE CREATED AUTHOR AUTHOR'S ORGANIZ ATION 08/22/2023 [facility] Care Teams (unrecognized sec tion and content) Local Hazmat Driver Relationship Specialty Start Date End Date Joshua Hsieh MD [facility] [address] [place] [address] PCP - General 10/12/15 04/19/22 Local Hazmat Driver Relationship Specialty Start Date End Date Shaikh Sosa MD PCP - General Internal Medicine 08/24/22 [...] BE BASED ON THE PRIMARY CLINICAL RECORDS. new test company [facility]. provides no warranty or guarantee of the accuracy or completeness of information in this document.
== END 2023-09-10 14:34 | disposition home or self-care (01) ==
LOC: PST 14:33
PROVIDERS: PCP Internal Medicine; Visit Provider Surgery
DX: Z01.818 Encounter for other preprocedural examination (principal); Z12.11 Encounter for screening for malignant neoplasm of colon

== ENCOUNTER 2023-09-17 07:51 | Day surgery (SDC) | payer OTHER, SELFPAY ==
--- OUTSIDE RECORDS SUMMARY | 2023-09-17 07:56 | XMS_ITS ---
Patient Summarization (C-CDA 2.1 CCD) Created on: September 17, 2023 MIKAL DANIELS : 1960 Sex: Male Author Organization Sample organization Care Team Providers Care Hand Compositor Name Role Phone FAWWAD, WOO H Consulting Unavailable FAWWAD, WOO [...] Unavailable Joshua Hsieh MD Primary Care Provider [phone] Shaikh Sosa MD Primary Care Provider FAWWAD, WOO Attending Unavailable FAWWAD, WOO Attending Unavailable FAWWAD, WOO Attending Unavailable VIRGINIADUSTY Attending Unavailable Allergies Allergy Classification Reported Allergen(s) Allergy Type Date of Onset Reaction(s) Facility (1 source) Penicillins Drug Allergy 02-06-2023 Diarrhea [facility] Encounters Encounter Date Encounter Type Care Provider Facility Start: 08-21-2023 End: 08-21-2023 ambulatory DUSTY COLEMAN Not Available Start: 08-12-2023 End: 08-12-2023 ambulatory SHAIKH SERAFINWWAD Not Available Start: 05-08-2023 End: 05-08-2023 ambulatory WOO FAWWAD Not Available Start: 04-03-2023 Orders Only Shaikh Sheila RODRIGUEZ Work Phone: [facility] Comment on above: Type 2 diabetes jorje itus without complication, without long- term current use of insulin ([facility]/HCC) (Primary Dx) Start: 02-06-2023 Patient encounter status Shaik ailyn Sosa MD Work Phone: [facility] Start: 02-06-2023 End: 02-06-2023 ambulatory SHAIKH SHEILA Not Available Start: 03-13-2022 End: 03-14-2022 ambulatory SHAIKH Ailyn SOSA Facility:[facility]1 Start: 09-21-2021 End: 09-22-2021 ambulatory SHAIKH Ailyn SOSA Facility:[facility] Start: 05-29-2021 End: 05-30-2021 ambulatory SHAIKH Ailyn SOSA Facility:[facility] Start: 05-25-2013 Conversion Encounter Joshua guerrero MD Work Phone: [facility] Start: 05-25-2013 Legacy Encounter Joshua martinez MD Work Phone: [facility] Procedure Code Equipment Code Equipment Origin al Text Equipment Identifier Dates 1 each by Other route in the morning. [id number] Start: 03-22-2022 1 each by Other route in the morning. [id number] Start: 01-26-2023 Immunizations Immunization Date Immunization Notes Care Provider [facility] 01-22-2019 influenza, injectabl e, quadrivalent, preservative free Shaikh Sheila RODRIGUEZ Work Phone: [facility] 01-22-2019 zoster vaccine recombinant S jana Sosa MD Work Phone: [facility] 12-18-2017 influenza, injectabl e, quadrivalent, contains preservative Shaikh Sheila RODRIGUEZ Work Phone: [facility] 12-06-2016 influenza, injectabl e, quadrivalent, contains preservative Shaikh Sheila RODRIGUEZ Work Phone: [facility] 12-07-2015 influenza, injectabl e, quadrivalent, contains preservative Shaikh Sheila RODRIGUEZ Work Phone: [facility] 05-05-2015 tetanus toxoid, redu geraldine diphtheria toxoid, and acellular pertussis vaccine, adsorbed Shaikh Sheila RODRIGUEZ Work Phone: [facility] 11-05-2014 influenza virus vacc ine, whole virus Shaikh Sheila RODRIGUEZ Work Phone: [facility] 12-10-2013 pneumococcal polysaccharide vaccine, 23 valent Shaikh Sheila RODRIGUEZ Work Phone: [facility] Medications Current Medications Medication Drug Class(es) Dates [...] long-term current use of insulin (CMS/HCC) Inject 1 mg under the skin 1 [...] dose 4.5 mL 0 02/06/2023 05/07/2023 Active Payers Date Payer Category Payer Unknown [facility] [id number] 2022-Present [phone] [address] [place] [id number] 2022 Unknown [id number] 1960 Unknown [id number] 1960 Unknown [id number] 1960 Unknown [id number] 1960 Unknown [id number] 1960 Unknown [id number] 1960 Unknown [id number] 1960 Unknown [id number] 1959 Unknown [id number] Plan of Treatment Date Care Activity Detail Author Start: 03-21-2024 Glaucoma screening Diabetes: R etinopathy Screening [facility] Start: 12-20-2023 Screening for malign ant neoplasm of colon [facility] Start: 10-26-2023 Urine screening for protein Diabetes: Urine Protein Screening [facility] Start: 05-08-2023 End: 05-08-2023 Patient encounter procedure 05/08/2023 10:00 AM EDT Office Visit [facility] [address] [place] [id number] Shaikh Sosa MD [address] [place] [id number] [facility] Start: 05-07-2023 Hemoglobin A1c measurement Diabetes: Hemoglobin A1C [facility] Start: 1960 Screening for malign ant neoplasm of colon [facility] Problems Problem Classification Problem Date Documented Da te Episodic/Chronic Diabetes mellitus without complication (8 sources) Type 2 diabetes mellitus without complications; Translations: [Type 2 diabetes mellitus without complication] Onset: 06-19-2018 Chronic Disorders of lipid metabolism (6 sources) Hyperlipidemia, unspecified; Translations: [Mixed hyperlipidemia] Onset: 06-19-2018 Chronic Essential hypertension (3 sources) Essential (primary) hypertension; Translations: [Benign hypertension] Onset: 11-05-2014 12-03-2021 Chronic Procedures Date Procedure Procedure Detail Performing Clinician Start: 05-25-2013 COLONOSCOPY W/ OR W/ O BIOPSY Joshua Hsieh MD Work Phone: Results Test Name Value Interpretation Reference Range Facility GLYCOHEMOGLOBIN A1Con 2022 ADA RECOMMENDATION SEE BELOW Normal [facility] Comment on above: Result Comment: ADA RECOMMENDED LIMIT 4.0 - 6.0 ADA THERAPEUTIC TARGET < 7.0 ACTION SUGGESTED > 7.0 Performed By: #### A 1C #### [facility] [address] [place] [address] Dr. Latisha Lindo Glucose [Mass/Vol] 194 mg/dL Normal [facility] Comment on above: Performed By: #### A 1C #### [facility] [address] [place] [address] Dr. Latisha Lindo HbA1c (Bld) [Mass fraction] 8.4 % Critically high 4.5-6.[address] [facility] Comment on above: Performed By: #### A 1C #### [facility] [address] [place] [address] Dr. Latisha Lindo CBC AUTO DIFFon 09-21-2021 BASO # 0.0 103/ul Normal 0.0-0.[address] [facility] Comment on above: Performed By: #### C BC #### [facility] [address] [place] [address] Dr. Latisha Lindo Basophils/100 WBC (Bld) 0.6 % Normal 0.2-2.0 [facility] Comment on above: Performed By: #### C BC #### [facility] [address] [place] [address] Dr. Latisha Lindo EO # 0.2 103/ul Normal 0.0-0.[address] [facility] Comment on above: Performed By: #### C BC #### [facility] [address] [place] [address] Dr. Latisha Lindo Eosinophils/100 WBC (Bld) 3.1 % Normal 0.9-7.0 [facility] Comment on above: Performed By: #### C BC #### [facility] [address] [place] [address] Dr. Latisha Lindo Erythrocyte distribution width (RBC) [Ratio] 13.1 % Normal 11.0-15.[address] [facility] Comment on above: Performed By: #### C BC #### [facility] [address] [place] [address] Dr. Latisha Lindo Hematocrit (Bld) [Volume fraction] 40.8 % Critically low 42.0-54.[address] [facility] Comment on above: Performed By: #### C BC #### [facility] [address] [place] [address] Dr. Latisha Lindo Hemoglobin (Bld) [Mass/Vol] 13.4 g/dL Critically low 14.0-18.[address] [facility] Comment on above: Performed By: #### C BC #### [facility] [address] [place] [address] Dr. Latisha Lindo IG # 0.02 10e3/ul Normal 0.00-0.[address] [facility] Comment on above: Performed By: #### C BC #### [facility] [address] [place] [address] Dr. Latisha Lindo IG % 0.3 % Normal 0.0-0.5 [facility] Comment on above: Performed By: #### C BC #### [facility] [address] [place] [address] Dr. Latisha Lindo LYMPH # 1.5 103/ul Normal 1.2-3.8 [facility] Comment on above: Performed By: #### C BC #### [facility] [address] [place] [address] Dr. Latisha Lindo Lymphocytes/100 WBC (Bld) 22.3 % Normal 20.5-60.0 [facility] Comment on above: Performed By: #### C BC #### [facility] [address] [place] [address] Dr. Latisha Lindo MANUAL DIFF REQ NO Normal [facility] Comment on above: Performed By: #### C BC #### [facility] [address] [place] [address] Dr. Latisha Lindo MCH (RBC) [Entitic mass] 28.8 pg Normal 25.9-34.[address] [facility] Comment on above: Performed By: #### C BC #### [facility] [address] [place] [address] Dr. Latisha Lindo MCHC (RBC) [Mass/Vol] 32.8 g/dL Normal 29.9-35.2 [facility] Comment on above: Performed By: #### C BC #### [facility] [address] [place] [address] Dr. Latisha Lindo MCV (RBC) [Entitic vol] 87.6 fL Normal 80.0-94.[address] [facility] Comment on above: Performed By: #### C BC #### [facility] [address] [place] [address] Dr. Latisha Lindo MONO # 0.6 103/ul Normal 0.3-0.[address] [facility] Comment on above: Performed By: #### C BC #### [facility] [address] [place] [address] Dr. Latisha Lindo Monocytes/100 WBC (Bld) 8.3 % Normal 1.7-12.0 [facility] Comment on above: Performed By: #### C BC #### [facility] [address] [place] [address] Dr. Latisha Lindo NEUT # 4.4 103/ul Normal 1.4-6.5 [facility] Comment on above: Performed By: #### C BC #### [facility] [address] [place] [address] Dr. Latisha Lindo Neutrophils/100 WBC (Bld) 65.4 % Normal 43.0-75.0 [facility] Comment on above: Performed By: #### C BC #### [facility] [address] [place] [address] Dr. Latisha Lindo Platelet mean volume (Bld) [Entitic vol] 9.7 fL Normal 9.5-13.[address] [facility] Comment on above: Performed By: #### C BC #### [facility] [address] [place] [address] Dr. Latisha Lindo PLT 253 103/ul Normal 150-[address] [facility] Comment on above: Performed By: #### C BC #### [facility] [address] [place] [address] Dr. Latisha Lindo RBC 4.66 106/ul Critically low 4.70-6.10 [facility] Comment on above: Performed By: #### C BC #### [facility] [address] [place] [address] Dr. Latisha Lindo WBC 6.8 103/ul Normal 4.0-11.[address] [facility] Comment on above: Performed By: #### C BC #### [facility] [address] [place] [address] Dr. Latisha Lindo GLYCOHEMOGLOBIN A1Con 2021 ADA RECOMMENDATION SEE BELOW Normal [facility] Comment on above: Result Comment: ADA RECOMMENDED LIMIT 4.0 - 6.0 ADA THERAPEUTIC TARGET < 7.0 ACTION SUGGESTED > 7.0 Performed By: #### A 1C #### [facility] [address] [place] [address] Dr. Latisha Lindo Glucose [Mass/Vol] 189 mg/dL Normal [facility] Comment on above: Performed By: #### A 1C #### [facility] [address] [place] [address] Dr. Latisha Lindo HbA1c (Bld) [Mass fraction] 8.2 % Critically high 4.5-6.[address] [facility] Comment on above: Performed By: #### A 1C #### [facility] [address] [place] [address] Dr. Latisha Lindo LIPID PROFILEon 09-21-2021 CHOL-HDL RATIO NORM SEE BELOW Normal [facility] Comment on above: Result Comment: 3.3 - 4.4 LOW RISK 4.4 - 7.1 AVERAGE RISK 7.1 - 11.0 MODERATE RISK >11.0 HIGH RISK Performed By: #### L IPID, BMP #### [facility] [address] [address] [address] Latisha Lindo Cholesterol [Mass/Vol] 126 mg/dL Normal <=[address] [facility] Comment on above: Performed By: #### L IPID, BMP #### [facility] [address] [address] [address] Latisha Lindo Cholesterol in HDL [Mass/Vol] 54 mg/dL Normal 40-[address] [facility] Comment on above: Performed By: #### L IPID, BMP #### [facility] [address] [address] [address] Latisha Lindo Cholesterol in LDL [Mass/Vol] 58.2 mg/dL Normal [facility] Comment on above: Performed By: #### L IPID, BMP #### [facility] [address] [place] [address] Dr. Latisha Lindo Cholesterol.total/Cho lesterol in HDL [Mass ratio] 2.3 {ratio} Normal [facility] Comment on above: Performed By: #### L IPID, BMP #### [facility] [address] [place] [address] Dr. Latisha Lindo HDL NORMAL > or = 60 mg/dl - LOW CARDIOVASCULAR RISK <40 mg/dl - HIGH CARDIOVASCULAR RISK Normal [facility] Comment on above: Performed By: #### L IPID, BMP #### [facility] [address] [place] [address] Dr. Latisha Lindo LDL CALC NORMAL SEE BELOW Normal [facility] Comment on above: Result Comment: <100 mg/dl OPTIMAL 100 - 129 mg/dl NEAR OR ABOVE OPTIMAL 130 - 159 mg/dl BORDERLINE HIGH 160 - 189 mg/dl HIGH >190 mg/dl VERY HIGH Performed By: #### L IPID, BMP #### [facility] [address] [place] [address] Dr. Latisha Lindo Triglyceride [Mass/Vol] 69 mg/dL Normal <=[address] [facility] Comment on above: Performed By: #### L IPID, BMP #### [facility] [address] [place] [address] Dr. Latisha Lindo VLDL CALC 13.8 mg/dL Normal [facility] Comment on above: Performed By: #### L IPID, BMP #### [facility] [address] [place] [address] Dr. Latisha Lindo PROF CHEM 8 (BAS METB)on Anion gap [Moles/Vol] 16.1 mmol/L Normal [facility] Comment on above: Performed By: #### L IPID, BMP #### [facility] [address] [place] [address] Dr. Latisha Lindo Calcium [Mass/Vol] 9.8 mg/dL Normal 8.5-10.1 [facility] Comment on above: Performed By: #### L IPID, BMP #### [facility] [address] [place] [address] Dr. Latisha Lindo Chloride [Moles/Vol] 103 mmol/L Normal 98-[address] [facility] Comment on above: Performed By: #### L IPID, BMP #### [facility] [address] [place] [address] Dr. Latisha Lindo CO2 [Moles/Vol] 25.7 mmol/L Normal 21.0-32.0 [facility] Comment on above: Performed By: #### L IPID, BMP #### [facility] [address] [place] [address] Dr. Latisha Lindo Creatinine [Mass/Vol] 1.02 mg/dL Normal 0.70-1.[address] [facility] Comment on above: Performed By: #### L IPID, BMP #### [facility] [address] [place] [address] Dr. Latisha Lindo EGFR-AF SERBIAN >60 Normal >=60 [facility] Comment on above: Performed By: #### L IPID, BMP #### [facility] [address] [place] [address] Dr. Latisha Lindo EGFR-NON AF SERBIAN >60 Normal >=[address] [facility] Comment on above: Performed By: #### L IPID, BMP #### [facility] [address] [address] [address] Latisha Lindo Glucose [Mass/Vol] 179 mg/dL Critically high 74-106 [facility] Comment on above: Performed By: #### L IPID, BMP #### [facility] [address] [address] [address] Latisha Lindo Potassium [Moles/Vol] 3.8 mmol/L Normal 3.5-5.[address] [facility] Comment on above: Performed By: #### L IPID, BMP #### [facility] [address] [address] [address] Latisha Lindo Sodium [Moles/Vol] 141 mmol/L Normal 136-145 [facility] Comment on above: Performed By: #### L IPID, BMP #### [facility] [address] [address] [address] Latisha Lindo Urea nitrogen [Mass/Vol] 21.0 mg/dL Critically high 7.0-18.[address] [facility] Comment on above: Performed By: #### L IPID, BMP #### [facility] [address] [address] [address] Latisha Lindo Urea nitrogen/Creatinine [Mass ratio] 20.6 mg/mg Normal [facility] Comment on above: Performed By: #### L IPID, BMP #### [facility] [address] [address] [address] Latisha Lindo GLYCOHEMOGLOBIN A1Con 2021 ADA RECOMMENDATION ADA THERAPEUTIC TARGET 6.0 - 7.0 ACTION SUGGESTED > 7.[address] [facility] Comment on above: Performed By: #### A 1C #### [facility] [address] [address] [address] Latisha Lindo Glucose [Mass/Vol] 171 mg/dL Normal [facility] Comment on above: Performed By: #### A 1C #### [facility] [address] [address] [address] Latisha Lindo HbA1c (Bld) [Mass fraction] 7.6 % Critically high <=6.[address] [facility] Comment on above: Performed By: #### A 1C #### [facility] [address] [address] [address] Latisha Lindo Colonoscopy w/ or w/o biopsy on 05-25-2013 Transverse colon polyp Rectal polyp Otherwise normal [facility] This order was created through External Result Entry [facility] Social History Date Type Detail Facility Start: 02-20-2023 Alcohol intake Current drinke r of alcohol (finding) [facility] Start: 02-06-2023 Tobacco smoking stat [facility] Never smoked tobacco [facility] Start: 02-06-2023 Tobacco use and exposure Smokeless tobacco non-user [facility] Start: 02-06-2023 Alcohol Comment occassional [facility] Start: 02-04-2023 End: 02-06-2023 Gender identity Not on file [facility] Start: 02-04-2023 End: 02-06-2023 History of Social function [facility] Start: 1960 Sex Assigned At Not on file [facility] Tobacco smoking stat [facility] Tobacco smoking consumption unknown [facility] Within the last year , have you [...] to buy more. Never true [facility] NEGATED: Highlighted rowStart: NINF History of tobacco use Passive smoker [facility] Evaluation note Note Date & Type Note Facility Evaluation note Diagnosis Type 2 diabetes mellitus without complication, without long-term current use of insulin ([facility])- Primary documented in this encounter [facility] Summary Purpose Family History No Family History Records FoundNo Family History Records Found Advance Directives No Advanced Directives Records FoundNo Advanced Directives Records Found Additional Source Comments (unrecognized sect ion and content) No Status Records FoundNo Status Records Found INFORMATION SOURCE (unrecogn ized section and content) DATE CREATED AUTHOR 03/15/2022 [facility] DATE CREATED AUTHOR AUTHOR'S ORGANIZ ATION 08/22/2023 [facility] EP[employer] Care Teams (unrecognized sec tion and content) Hand Compositor Relationship Specialty Start Date End Date Joshua Hsieh MD [facility] [address] [address] PCP - General 10/12/15 04/19/22 Hand Compositor Relationship Specialty Start Date End Date Shaikh [...] BE BASED ON THE PRIMARY CLINICAL RECORDS. [facility] [employer] [facility]. provides no warranty or guarantee of the accuracy or completeness of information in this document.
[2023-09-17 07:57] VITALS: BP 138/89; PULSE 87; TEMP 36.2; O2SAT 97; BMI 28.0
[2023-09-17 08:24] LABS: Glucometer 121 mg/dL (74-106)
--- NOTE | 2023-09-17 08:26 | W.PM.PROCNOT ---
Date of procedure: 09/17/23 Pre-op diagnosis: screening colonoscopy Post-op diagnosis: same as pre-op Procedure: Previous colonoscopy: 2019 procedure: screening colonoscopy The patient was given IV conscious sedation.? The patient's SPO2 remained above 90% throughout the procedure. The colonoscope was inserted per rectum and advanced under direct vision to the cecum without difficulty.? The prep was good.? Findings: Terminal ileum os: normal Cecum/Ascending colon: normal Transverse colon: normal Descending/Sigmoid colon: normal aside for a couple sigmoid diverticulum Rectum/Anus: examined in normal and retroflexed positions and was normal Withdrawal Time was (minutes): 8 The colon was decompressed and the scope was removed.? The patient tolerated the procedure well. Recommendations/Plan: 1.? Lifestyle and dietary modifications as discussed 2.? F/U 10 years 3.? Discussed with the family Anesthesia: MAC Surgeon: Mina Alvarez Estimated blood loss (mL): 0 Pathology: none sent Condition: stable Disposition: PACU
[2023-09-17] MEDS: LACTATED RINGER'S SOLUTION 1,000 ML 50 ML IV (08:36)
[2023-09-17 09:17] VITALS: BP 108/76; PULSE 80; TEMP 36.2; O2SAT 96
[2023-09-17 09:37] VITALS: BP 133/87; PULSE 77; O2SAT 96
[2023-09-17 09:47] VITALS: BP 114/80; PULSE 68
== END 2023-09-17 09:55 | disposition home or self-care (01) ==
PROVIDERS: PCP Internal Medicine; Visit Provider Surgery
PROC: (CPT 00811; principal; 2023-09-17 08:55)
DX: Z12.11 Encounter for screening for malignant neoplasm of colon (principal); Z90.49 Acquired absence of other specified parts of digestive tract; E78.5 Hyperlipidemia, unspecified; I10 Essential (primary) hypertension; E11.9 Type 2 diabetes mellitus without complications; Z79.84 Long term (current) use of oral hypoglycemic drugs
CPT/HCPCS: 00811; 45378; 36415; 82948; J2704

== ENCOUNTER 2023-09-23 13:11 | Outpatient (OUT) | payer OTHER, SELFPAY ==
--- OUTSIDE RECORDS SUMMARY | 2023-09-23 13:31 | XMS_ITS | CCD ---
Author Organization [facility] Care Team Providers Care Inside Contractor Sales Name Role Phone FAWJOSEPHINED, WOO H Consulting [...] (1 source) Penicillins Drug Allergy 02-06-2023 Diarrhea [facility] Healthcare Medications Current Medications Medication Drug [...] complication, without long-term current use of insulin ([facility]) Inject 1 mg under the [...] 2022 ADA RECOMMENDATION SEE BELOW Normal [facility] Comment on above: Result Comment: ADA RECOMMENDED LIMIT 4.0 - 6.0 ADA THERAPEUTIC TARGET < 7.0 ACTION SUGGESTED > 7.0 Performed By: #### A 1C #### [facility] [place] [facility] [address] [address] [address] Latisha Lindo Glucose [Mass/Vol] 194 mg/dL Normal [facility] Comment on above: Performed By: #### A 1C #### [facility] [place] [facility] [address] [address] [address] Latisha Lindo HbA1c (Bld) [Mass fraction] 8.4 % Critically high 4.5-6.2 [facility] Comment on above: Performed By: #### A 1C #### [facility] [place] [facility] [address] [address] [address] Latisha Lindo CBC AUTO DIFFon 09-21-2021 BASO # 0.0 103/ul Normal 0.0-0.1 [facility] Comment on above: Performed By: #### C BC #### [facility] [place] [facility] [address] [place] [address] Dr. Latisha Lindo Basophils/100 WBC (Bld) 0.6 % Normal 0.2-2.0 [facility] Comment on above: Performed By: #### C BC #### [facility] [place] [facility] [address] [place] [address] Dr. Latisha Lindo EO # 0.2 103/ul Normal 0.0-0.7 [facility] Comment on above: Performed By: #### C BC #### [facility] [place] [facility] [address] [place] [address] Dr. Latisha Lindo Eosinophils/100 WBC (Bld) 3.1 % Normal 0.9-7.0 [facility] Comment on above: Performed By: #### C BC #### [facility] [place] [facility] [address] [place] [address] Dr. Latisha Lindo Erythrocyte distribution width (RBC) [Ratio] 13.1 % Normal 11.0-15.0 [facility] Comment on above: Performed By: #### C BC #### [facility] [place] [facility] [address] [place] [address] Dr. Latisha Lindo Hematocrit (Bld) [Volume fraction] 40.8 % Critically low 42.0-54.0 [facility] Comment on above: Performed By: #### C BC #### [facility] [place] [facility] [address] [place] [address] Dr. Latisha Lindo Hemoglobin (Bld) [Mass/Vol] 13.4 g/dL Critically low 14.0-18.0 [facility] Comment on above: Performed By: #### C BC #### [facility] [place] [facility] [address] [place] [address] Dr. Latisha Lindo IG # 0.02 10e3/ul Normal 0.00-0.03 [facility] Comment on above: Performed By: #### C BC #### [facility] [place] [facility] [address] [place] [address] Dr. Latisha Lindo IG % 0.3 % Normal 0.0-0.5 [facility] Comment on above: Performed By: #### C BC #### [facility] [place] [facility] [address] [place] [address] Dr. Latisha Lindo LYMPH # 1.5 103/ul Normal 1.2-3.8 [facility] Comment on above: Performed By: #### C BC #### [facility] [place] [facility] [address] [place] [address] Dr. Latisha Lindo Lymphocytes/100 WBC (Bld) 22.3 % Normal 20.5-60.0 [facility] Comment on above: Performed By: #### C BC #### [facility] [place] [facility] [address] [place] [address] Dr. Latisha Lindo MANUAL DIFF REQ NO Normal [facility] Comment on above: Performed By: #### C BC #### [facility] [place] [facility] [address] [place] [address] Dr. Latisha Lindo MCH (RBC) [Entitic mass] 28.8 pg Normal 25.9-34.0 [facility] Comment on above: Performed By: #### C BC #### [facility] [place] [facility] [address] [place] [address] Dr. Latisha Lindo MCHC (RBC) [Mass/Vol] 32.8 g/dL Normal 29.9-35.2 [facility] Comment on above: Performed By: #### C BC #### [facility] [place] [facility] [address] [place] [address] Dr. Latisha Lindo MCV (RBC) [Entitic vol] 87.6 fL Normal 80.0-94.0 [facility] Comment on above: Performed By: #### C BC #### [facility] [place] [facility] [address] [place] [address] Dr. Latisha Lindo MONO # 0.6 103/ul Normal 0.3-0.8 [facility] Comment on above: Performed By: #### C BC #### [facility] [place] [facility] [address] [place] [address] Dr. Latisha Lindo Monocytes/100 WBC (Bld) 8.3 % Normal 1.7-12.0 [facility] Comment on above: Performed By: #### C BC #### [facility] [place] [facility] [address] [place] [address] Dr. Latisha Lindo NEUT # 4.4 103/ul Normal 1.4-6.5 [facility] Comment on above: Performed By: #### C BC #### [facility] [place] [facility] [address] [place] [address] Dr. Latisha Lindo Neutrophils/100 WBC (Bld) 65.4 % Normal 43.0-75.0 [facility] Comment on above: Performed By: #### C BC #### [facility] [place] [facility] [address] [place] [address] Dr. Latisha Lindo Platelet mean volume (Bld) [Entitic vol] 9.7 fL Normal 9.5-13.5 [facility] Comment on above: Performed By: #### C BC #### [facility] [place] [facility] [address] [place] [address] Dr. Latisha Lindo PLT 253 103/ul Normal 150-450 [facility] Comment on above: Performed By: #### C BC #### [facility] [place] [facility] [address] [place] [address] Dr. Latisha Lindo RBC 4.66 106/ul Critically low 4.70-6.10 [facility] Comment on above: Performed By: #### C BC #### [facility] [place] [facility] [address] [place] [address] Dr. Latisha Lindo WBC 6.8 103/ul Normal 4.0-11.0 [facility] Comment on above: Performed By: #### C BC #### [facility] [place] [facility] [address] [place] [address] Dr. Latisha Lindo GLYCOHEMOGLOBIN A1Con 2021 ADA RECOMMENDATION SEE BELOW Normal [facility] Comment on above: Result Comment: ADA RECOMMENDED LIMIT 4.0 - 6.0 ADA THERAPEUTIC TARGET < 7.0 ACTION SUGGESTED > 7.0 Performed By: #### A 1C #### [facility] [place] [facility] [address] [place] [address] Dr. Latisha Lindo Glucose [Mass/Vol] 189 mg/dL Normal [facility] Comment on above: Performed By: #### A 1C #### [facility] [place] [facility] [address] [address] [address] Latisha Lindo HbA1c (Bld) [Mass fraction] 8.2 % Critically high 4.5-6.2 [facility] Comment on above: Performed By: #### A 1C #### [facility] [place] [facility] [address] [address] [address] Latisha Lindo LIPID PROFILEon 09-21-2021 CHOL-HDL RATIO NORM SEE BELOW Normal [facility] Comment on above: Result Comment: 3.3 - 4.4 LOW RISK 4.4 - 7.1 AVERAGE RISK 7.1 - 11.0 MODERATE RISK >11.0 HIGH RISK Performed By: #### L IPID, BMP #### [facility] [place] [facility] [address] [place] [address] Dr. Latisha Lindo Cholesterol [Mass/Vol] 126 mg/dL Normal <=200 [facility] Comment on above: Performed By: #### L IPID, BMP #### [facility] [place] [facility] [address] [address] [address] Latisha Lindo Cholesterol in HDL [Mass/Vol] 54 mg/dL Normal 40-60 [facility] Comment on above: Performed By: #### L IPID, BMP #### [facility] [place] [facility] [address] [place] [address] Dr. Latisha Lindo Cholesterol in LDL [Mass/Vol] 58.2 mg/dL Normal [facility] Comment on above: Performed By: #### L IPID, BMP #### [facility] [place] [facility] [address] [address] [address] Latisha Lindo Cholesterol.total/Cho lesterol in HDL [Mass ratio] 2.3 {ratio} Normal [facility] Comment on above: Performed By: #### L IPID, BMP #### [facility] [place] [facility] [address] [address] [address] Latisha Lindo HDL NORMAL > or = 60 mg/dl - LOW CARDIOVASCULAR RISK <40 mg/dl - HIGH CARDIOVASCULAR RISK Normal [facility] Comment on above: Performed By: #### L IPID, BMP #### [facility] [place] [facility] [address] [place] [address] Dr. Latisha Lindo LDL CALC NORMAL SEE BELOW Normal [facility] Comment on above: Result Comment: <100 mg/dl OPTIMAL 100 - 129 mg/dl NEAR OR ABOVE OPTIMAL 130 - 159 mg/dl BORDERLINE HIGH 160 - 189 mg/dl HIGH >190 mg/dl VERY HIGH Performed By: #### L IPID, BMP #### [facility] [place] [facility] [address] [place] [address] Dr. Latisha Lindo Triglyceride [Mass/Vol] 69 mg/dL Normal <=150 [facility] Comment on above: Performed By: #### L IPID, BMP #### [facility] [place] [facility] [address] [place] [address] Dr. Latisha Lindo VLDL CALC 13.8 mg/dL Normal [facility] Comment on above: Performed By: #### L IPID, BMP #### [facility] [place] [facility] [address] [place] [address] Dr. Latisha Lindo PROF CHEM 8 (BAS METB)on Anion gap [Moles/Vol] 16.1 mmol/L Normal [facility] Comment on above: Performed By: #### L IPID, BMP #### [facility] [place] [facility] [address] [place] [address] Dr. Latisha Lindo Calcium [Mass/Vol] 9.8 mg/dL Normal 8.5-10.1 [facility] Comment on above: Performed By: #### L IPID, BMP #### [facility] [place] [facility] [address] [place] [address] Dr. Latisha Lindo Chloride [Moles/Vol] 103 mmol/L Normal 98-107 [facility] Comment on above: Performed By: #### L IPID, BMP #### [facility] [place] [facility] [address] [place] [address] Dr. Latisha Lindo CO2 [Moles/Vol] 25.7 mmol/L Normal 21.0-32.0 [facility] Comment on above: Performed By: #### L IPID, BMP #### [facility] [place] [facility] [address] [address] [address] Latisha Lindo Creatinine [Mass/Vol] 1.02 mg/dL Normal 0.70-1.30 [facility] Comment on above: Performed By: #### L IPID, BMP #### [facility] [place] [facility] [address] [address] [address] Latisha Lindo EGFR-AF ALGERIAN >60 Normal >=60 [facility] Comment on above: Performed By: #### L IPID, BMP #### [facility] [place] [facility] [address] [address] [address] Latisha Lindo EGFR-NON AF ALGERIAN >60 Normal >=60 [facility] Comment on above: Performed By: #### L IPID, BMP #### [facility] [place] [facility] [address] [address] [address] Latisha Lindo Glucose [Mass/Vol] 179 mg/dL Critically high 74-106 [facility] Comment on above: Performed By: #### L IPID, BMP #### [facility] [place] [facility] [address] [place] [address] Dr. Latisha Lindo Potassium [Moles/Vol] 3.8 mmol/L Normal 3.5-5.1 [facility] Comment on above: Performed By: #### L IPID, BMP #### [facility] [place] [facility] [address] [place] [address] Dr. Latisha Lindo Sodium [Moles/Vol] 141 mmol/L Normal 136-145 [facility] Comment on above: Performed By: #### L IPID, BMP #### [facility] [place] [facility] [address] [place] [address] Dr. Latisha Lindo Urea nitrogen [Mass/Vol] 21.0 mg/dL Critically high 7.0-18.0 [facility] Comment on above: Performed By: #### L IPID, BMP #### [facility] [place] [facility] [address] [place] [address] Dr. Latisha Lindo Urea nitrogen/Creatinine [Mass ratio] 20.6 mg/mg Normal [facility] Comment on above: Performed By: #### L IPID, BMP #### [facility] [place] [facility] [address] [place], [place] [address] Dr. Latisha Lindo GLYCOHEMOGLOBIN A1Con 2021 ADA RECOMMENDATION ADA THERAPEUTIC TARGET 6.0 - 7.0 ACTION SUGGESTED > 7.0 Normal [facility] Comment on above: Performed By: #### A 1C #### [facility] [place] [facility] [address] [place], [place] [address] Dr. Latisha Lindo Glucose [Mass/Vol] 171 mg/dL Normal [facility] Comment on above: Performed By: #### A 1C #### [facility] [place] [facility] [address] [place], [place] [address] Dr. Laitsha Lindo HbA1c (Bld) [Mass fraction] 7.6 % Critically high <=6.0 [facility] Comment on above: Performed By: #### A 1C #### [facility] [place] [facility] [address] [address] [address] Latisha Lindo Colonoscopy w/ or w/o biopsy on 05-25-2013 Transverse colon polyp Rectal polyp Otherwise normal [facility] This order was created through External Result Entry [facility] Encounters Encounter Date Encounter Type Care Provider Facility Start: 08-21-2023 End: 08-21-2023 ambulatory DUSTY COLEMAN Not Available Start: 08-12-2023 End: 08-12-2023 ambulatory SHAIKH SHEILA Not Available Start: 05-08-2023 End: 05-08-2023 ambulatory SHAIKH SHEILA Not Available Start: 04-03-2023 Orders Only Shaikh Sheila RODRIGUEZ Work Phone: [facility] Comment on above: Type 2 diabetes jorje itus without complication, without long- term current use of insulin ([facility]) (Primary Dx) Start: 02-06-2023 Patient encounter status Shaik ailyn Sosa MD Work Phone: [facility] Start: 02-06-2023 End: 02-06-2023 ambulatory SHAIKH SHEILA Not Available Start: 03-13-2022 End: 03-14-2022 ambulatory SHAIKH Ailyn SOSA Facility: Start: 09-21-2021 End: 09-22-2021 ambulatory SHAIKH Ailyn SOSA Facility:[facility]1 Start: 05-29-2021 End: 05-30-2021 ambulatory [facility] Ailyn SOSA Facility:[facility] Start: 05-25-2013 Conversion Encounter Joshua guerrero MD Work Phone: [facility] Start: 05-25-2013 Legacy Encounter Joshua martinez MD Work Phone: [facility] Procedures Date Procedure Procedure Detail Performing Clinician Start: 05-25-2013 COLONOSCOPY W/ OR W/ O BIOPSY Joshua Hsieh MD Work Phone: Plan of Treatment Date Care Activity Detail Author Start: 03-21-2024 Glaucoma screening Diabetes: R etinopathy Screening [facility] Start: 12-20-2023 Screening for malign ant neoplasm of colon [facility] Start: 10-26-2023 Urine screening for protein Diabetes: Urine Protein Screening [facility] Start: 05-08-2023 End: 05-08-2023 Patient encounter procedure 05/08/2023 10:00 AM EDT Office Visit [facility] [address] [place] [address] Shaikh Sosa MD [address] [place] [id number] [facility] Start: 05-07-2023 Hemoglobin A1c measurement Diabetes: Hemoglobin A1C [facility] Start: 1960 Screening for malign ant neoplasm of colon [facility] Immunizations Immunization Date Immunization Notes Care Provider [facility] 01-22-2019 influenza, injectabl e, quadrivalent, preservative free Shaikh Sheila RODRIGUEZ Work Phone: [facility] 01-22-2019 zoster vaccine recombinant S jana Sosa MD Work Phone: [facility] 12-18-2017 influenza, injectabl e, quadrivalent, contains preservative Shaikh Sheila RODRIGUEZ Work Phone: [facility] 12-06-2016 influenza, injectabl e, quadrivalent, contains preservative Shaikh Sheila RODRIGUEZ Work Phone: [facility] 12-07-2015 influenza, injectabl e, quadrivalent, contains preservative Shaikh Sheila RODRIGUEZ Work Phone: [facility] 05-05-2015 tetanus toxoid, redu geraldine diphtheria toxoid, and acellular pertussis vaccine, adsorbed Shaikh Sheila RODRIGUEZ Work Phone: [facility] 11-05-2014 influenza virus vacc ine, whole virus Shaikh Sheila RODRIGUEZ Work Phone: [facility] 12-10-2013 pneumococcal polysaccharide vaccine, 23 valent Shaikh Sheila RODRIGUEZ Work Phone: [facility] Payers Date Payer Category Payer Unknown [facility] [id number] 2022-[facility] [phone] [place] [phone] 2022 Unknown [id number] 1960 Unknown [id number] 1960 Unknown [id number] 93 1960 Unknown [id number] 93 1960 Unknown [id number] 1960 Unknown [id number] 1960 Unknown [id number] 259 1960 Unknown [id number] 1959 Unknown [id number] Social History Date Type Detail Facility Tobacco smoking stat [facility] Tobacco smoking consumption unknown [facility] Start: 1960 Sex Assigned At Not on file [facility] Start: 02-04-2023 End: 02-06-2023 Gender identity Not on file [facility] Start: 02-06-2023 Tobacco smoking stat [facility] Never smoked tobacco [facility] Start: 02-06-2023 [...] each by Other route in the morning. [id number] Start: 03-22-2022 1 each by Other route in the morning. [id number] Start: 01-26-2023 Evaluation note Note Date & Type Note Facility Evaluation note Diagnosis Type 2 diabetes mellitus without complication, without long-term current use of insulin ([facility])- Primary documented in this encounter [facility] Summary Purpose Family History No Family History Records FoundNo Family History Records Found Advance Directives No Advanced Directives Records FoundNo Advanced Directives Records Found Additional Source Comments (unrecognized sect ion and content) No Status Records FoundNo Status Records Found INFORMATION SOURCE (unrecogn ized section and content) DATE CREATED AUTHOR 03/15/2022 [facility] DATE CREATED AUTHOR AUTHOR'S ORGANIZ ATION 08/22/2023 [facility] Care Teams (unrecognized sec tion and content) Inside Contractor Sales Relationship Specialty Start Date End Date Joshua Hsieh MD [facility] [place] [address] [place] [address] PCP - General 10/12/15 04/19/22 Inside Contractor Sales Relationship Specialty Start Date End Date Shaikh [...] BE BASED ON THE PRIMARY CLINICAL RECORDS. [facility]. provides no warranty or guarantee of the accuracy or completeness of information in this document.
[2023-09-23 13:38] LABS: Basophils Percent Auto 0.4 % (0.2-2.0); Eosinophils Absolute Auto 0.3 10^3/uL (0.0-0.7); Eosinophils Percent Auto 3.9 % (0.9-7.0); Hematocrit 38.9 % (42.0-54.0); Hemoglobin 13.2 g/dL (14.0-18.0); Immature Granulocytes Abs Auto 0.02 10^3/uL (0.00-0.03); Immature Granulocytes Pct Auto 0.3 % (0.0-0.5); Lymphocytes Absolute Auto 1.4 10^3/uL (1.2-3.8); Lymphocytes Percent Auto 18.2 % (20.5-60.0); Mean Corpuscular HGB Conc 33.9 g/dL (29.9-35.2); Mean Corpuscular Volume 85.5 fL (80.0-94.0); Monocytes Absolute Auto 0.5 10^3/uL (0.3-0.8); Monocytes Percent Auto 6.5 % (1.7-12.0); Neutrophils Absolute Auto 5.3 10^3/uL (1.4-6.5); Neutrophils Percent Auto 70.7 % (43.0-75.0); Platelet Count 254 10^3/uL (150-450); Red Blood Count 4.55 10^6/uL (4.70-6.10); Red Cell Distribution Width 12.7 % (11.0-15.0); Reticulocyte Pct Auto 1.24 % (0.60-3.10); White Blood Count 7.5 10^3/uL (4.0-11.0)
[2023-09-23 14:03] LABS: Anion Gap 14.9; BUN Creatinine Ratio 14.7; Calcium 9.3 mg/dL (8.5-10.1); Carbon Dioxide 25.6 mmol/L (21.0-32.0); Chloride 103 mmol/L (98-107); Estimated GFR (African America >60 (>=60); Estimated GFR (Non-African Ame >60 (>=60); Glucose 123 mg/dL (74-106); Lactate Dehydrogenase 157 U/L (85-227); Potassium 3.5 mmol/L (3.5-5.1); Sodium 140 mmol/L (136-145)
[2023-09-23 14:19] LABS: Percent Iron Saturation 24.8 %
[2023-09-24 14:10] LABS: Albumin 4.1 g/dL (2.9-4.4); Alpha-1-Globulin 0.2 g/dL (0.0-0.4); Alpha-2-Globulin 0.7 g/dL (0.4-1.0); Gamma Globulin 0.8 g/dL (0.4-1.8); Immunoglobulin A, Qn, Serum 263 mg/dL (61-437); Immunoglobulin G, Qn, Serum 980 mg/dL (603-1613); Immunoglobulin M, Qn, Serum 21 mg/dL (20-172); Protein, Total 6.7 g/dL (6.0-8.5)
== END 2023-09-23 13:12 | disposition home or self-care (01) ==
LOC: LAB 13:14
PROVIDERS: PCP Internal Medicine; Visit Provider Internal Medicine Hematology & Oncology
DX: D64.9 Anemia, unspecified (principal)
CPT/HCPCS: 36415; 80048; 82728; 82784; 83540; 83550; 83615; 84155; 84165; 85025; 85045; 86334

== ENCOUNTER 2023-10-01 07:32 | Outpatient (RCR) | payer OTHER, SELFPAY | END 2023-10-19 23:59 | disposition home or self-care (01) | LOC: HEMC 07:32 | PROVIDERS: Visit Provider Internal Medicine Hematology & Oncology | DX: D50.9 Iron deficiency anemia, unspecified (principal); D64.9 Anemia, unspecified; Z80.6 Family history of leukemia; Z80.8 Family history of malignant neoplasm of other organs or systems; R11.0 Nausea; R19.7 Diarrhea, unspecified | CPT/HCPCS: G0463 ==

== ENCOUNTER 2024-04-28 12:36 | Outpatient (OUT) | payer OTHER, SELFPAY ==
--- OUTSIDE RECORDS SUMMARY | 2024-04-28 12:56 | XMS_ITS | CCD ---
Author Organization [facility] Informat ion Partnership [facility] Care Team Providers Care 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 Name Role Phone FAWWAD, WOO H Consulting Unavailable FAWWAD, WOO H Primary Care Unavailable FAWWAD, WOO H Admitting Unavailable FAWWAD, WOO H Attending Unavailable FAWWAD, WOO H Consulting Unavailable FAWWAD, WOO H Primary Care Unavailable FAWWAD, WOO H Admitting Unavailable FAWWAD, WOO H Attending Unavailable FAWWAD, WOO H Consulting Unavailable FAWWAD, OWO H Primary Care Unavailable FAWWAD, WOO H Admitting Unavailable FAWWAD, WOO H Referring Unavailable FAWWAD, WOO H Attending Unavailable Joshua Hsieh MD Primary Care Provider Shaikh Sosa MD Primary Care Provider Brenton Barroso MD Primary Care Provider Yi RADIOLOGIC TECHNOLOGIST MAMMOGRAM, Selina Unavailable Yi RADIOLOGIC TECHNOLOGIST MAMMOGRAM, Selina Unavailable ANIKA MONZON Attending Unavailable SELINA RICHMOND Attending Unavailabl DUSTY Barnes Attending Unavailable SHAIKH SOSA Attending Unavailable SERAFINWWASHAIKH Moran Attending Unavailable Allergies Allergy Classification Reported Allergen(s) Allergy Type Date of Onset Reaction(s) Facility (14 sources) Penicillins Drug Allergy 02-06-2023 Diarrhea [facility] Medications Current Medications Medication Drug Class(es) Dates Sig (Normalized) Sig (Original) amLODIPine 10 mg oral tablet (20 sources) Dihydropyridine Calcium Channel Jozef Start: 04-16-2024 take 1 tablet by mouth once daily amLODIPine (Norvasc) 10 MG tablet Indications: Essential (primary) hypertension (CMS/HCC) Take 1 tablet (10 mg) by mouth Daily 90 tablet 1 04/16/2024 Active Start: 04-16-2024 take 1 tablet by carmencita th once daily amLODIPine (Norvasc) 10 MG tablet Indications: Essential (primary) hypertension (CMS/HCC) Take 1 tablet (10 mg) by mouth Daily 90 tablet 1 04/16/2024 Active Start: 08-26-2023 End: 04-16-2024 take 1 tablet by mouth once daily amLODIPine (Norvasc) 10 MG tablet Indications: Essential (primary) hypertension (CMS/HCC) Take 1 tablet (10 mg) by mouth Daily 90 tablet 1 03/02/2024 04/16/2024 Discontinued (Reorder) Start: 03-07-2023 End: 10-15-2023 take 1 tablet by mouth once daily amLODIPine (Norvasc) 5 MG tablet Indications: Essential (primary) hypertension (CMS/HCC) TAKE 1 TABLET BY MOUTH DAILY 90 tablet 03/07/2023 10/15/2023 Discontinued (Therapy completed) Start: 12-05-2022 take 1 tablet by carmencita th in the morning amLODIPine (Norvasc) 10 MG tablet Take 1 tablet by mouth in the morning. 0 12/05/2022 Active aspirin 81 mg delayed release oral tablet (14 sources) Platelet Aggregation Inhibitor, Nonsteroidal Anti-inflammatory Drug take 1 tablet by mouth in the morning aspirin 81 MG EC tablet Take 1 tablet by mouth in the morning. Active atorvastatin 20 mg oral tablet (18 sources) HMG-CoA Reductase Inhibitor Start: take 1 tablet by mouth at bedtime atorvastatin (Lipitor) 20 MG tablet Indications: Type 2 diabetes mellitus without complication, without long-term current use of insulin (CMS/HCC) Take 1 tablet (20 mg) by mouth at bedtime 90 tablet 1 04/16/2024 Active Start: 04-16-2024 take 1 tablet by carmencita th at bedtime atorvastatin (Lipitor) 20 MG tablet Indications: Type 2 diabetes mellitus without complication, without long-term current use of insulin (CMS/HCC) Take 1 tablet (20 mg) by mouth at bedtime 90 tablet 1 04/16/2024 Active Start: 12-05-2022 End: 04-16-2024 take 1 tablet by mouth once daily atorvastatin (Lipitor) 20 MG tablet Indications: Type 2 diabetes mellitus without complication, without long-term current use of insulin (CMS/HCC) Take 1 tablet (20 mg) by mouth Daily 90 tablet 03/02/2024 04/16/2024 Discontinued (Reorder) bisacodyl 5 mg delayed release oral tablet (11 sources) Stimulant Laxative Start: 08-21-2023 End: 04-16-2024 take 1 tablet by mouth once daily Bisacodyl EC 5 MG EC tablet TAKE 1 TABLET BY MOUTH ONCE DAILY DIRECTED dnccs 08/21/2023 04/16/2024 Discontinued (Therapy completed) glipiZIDE 5 mg oral tablet (18 sources) Sulfonylurea Start: 05-28-2023 End: 07-15-2024 take 1 tablet by mouth in the morning glipiZIDE (Glucotrol) 5 MG tablet Indications: Type 2 diabetes mellitus without complications (CMS/HCC) Take 1 tablet (5 mg) by mouth in the morning and 1 tablet (5 mg) in the evening. Take before meals. 180 tablet 1 04/16/2024 07/15/2024 Active Start: 12-05-2022 take 1 tablet by carmencita th in the morning glipiZIDE (Glucotrol) 5 MG tablet Take 5 mg by mouth in the morning and 5 mg in the evening. Take before meals. 0 12/05/2022 Active hydroCHLOROthiazide 25 mg / losartan potassium 100 mg oral tablet (1 source) Thiazide Diuretic, Angiotensin 2 Receptor Jozef Start: 12-05-2022 take 1 tablet by mouth in the morning losartan-hydroCHLOROthiazide (Hyzaar) 100-25 MG tablet Take 1 tablet by mouth in the morning. 0 12/05/2022 Active latanoprost 0.05 mg/ml ophthalmic solution (12 sources) Prostaglandin Analog Start: 09-19-2023 latanoprost (Xalatan) 0.005 % ophthalmic solution 09/19/2023 Active losartan potassium 100 mg oral tablet (18 sources) Angiotensin 2 Receptor Jozef Start: 08-12-2023 End: 07-15-2024 take 1 tablet by mouth once daily losartan (Cozaar) 100 MG tablet Indications: Stage 2 hypertension (CMS/HCC) Take 1 tablet (100 mg) by mouth Daily 90 tablet 1 04/16/2024 07/15/2024 Active metFORMIN hydrochloride 1000 mg oral tablet (18 sources) Biguanide Start: 06-11-2023 End: 10-13-2024 take 1 tablet by mouth in the morning metFORMIN (Glucophage) 1000 MG tablet Indications: Type 2 diabetes mellitus without complication, without long-term current use of insulin (CMS/HCC) Take 1 tablet (1,000 mg) by mouth in the morning and 1 tablet (1,000 mg) in the evening. Take with meals. 180 tablet 1 04/16/2024 10/13/2024 Active Start: 11-12-2022 take 1 tablet by carmencita th in the morning metFORMIN (Glucophage) 1000 MG tablet Take 1,000 mg by mouth in the morning and 1,000 mg in the evening. Take with meals. 0 11/12/2022 Active Ozempic, 1 MG/DOSE, 4 MG/3ML solution pen-injector (3 sources) Start: 03-14-2024 End: 04-16-2024 inject 1 mg by subcutaneous injection every week Ozempic, 1 MG/DOSE, 4 MG/3ML solution pen-injector Inject 1 mg under the skin 1 (one) time per week 03/14/2024 04/16/2024 Discontinued (Reorder) Start: 03-14-2024 inject 1 mg by subcu taneous injection every week Ozempic, 1 MG/DOSE, 4 MG/3ML solution pen-injector Inject 1 mg under the skin 1 (one) time per week 03/14/2024 Active polyethylene glycol 3350 12273 mg powder for oral solution (11 sources) Osmotic Laxative Start: 08-21-2023 End: 04-16-2024 take 17 g by mouth once polyethylene glycol, PEG, 3350 (Glycolax) 17 GM/SCOOP powder TAKE 238 GRAM BY MOUTH for a one time dose DIRECTED from clinic hand out for colonoscopy prep 08/21/2023 04/16/2024 Discontinued (Therapy completed) 1 mg dose 1.5 ml semaglutide 1.34 mg/ml pen injector (16 sources) Start: 04-03-2023 End: 04-16-2024 inject 1 mg by subcutaneous injection every week semaglutide (Ozempic, 1 MG/DOSE,) 2 MG/1.5ML solution pen-injector Indications: Type 2 diabetes mellitus without complication, without long-term current use of insulin (CMS/HCC) Inject 1 mg under the skin 1 (one) time per week 9 mL 1 09/25/2023 04/16/2024 Discontinued (Therapy completed) Start: 02-06-2023 End: 04-03-2023 inject 0.25 mg [...] dose 4.5 mL 0 02/06/2023 05/07/2023 Active semaglutide (Ozempic, 1 MG/DOSE,) 4 MG/3ML solution pen-injector (2 sources) Start: 04-16-2024 End: 07-09-2024 inject 1 mg by subcutaneous injection every week semaglutide (Ozempic, 1 MG/DOSE,) 4 MG/3ML solution pen-injector Indications: Type 2 diabetes mellitus without complications (CMS/HCC) Inject 1 mg under the skin 1 (one) time per week 9 mL 1 04/16/2024 07/09/2024 Active Problems Active Problems Problem Classification Problem Date Documented Da te Episodic/Chronic Diabetes mellitus without complication (20 sources) Type 2 diabetes mellitus without complications; Translations: [Type 2 diabetes mellitus without complication] Onset: 06-19-2018 Chronic Disorders of lipid metabolism (20 sources) Hyperlipidemia, unspecified; Translations: [Mixed hyperlipidemia] Onset: 06-19-2018 Chronic Essential hypertension (20 sources) Essential (primary) hypertension; Translations: [Benign hypertension] Onset: 11-05-2014 Resolved: 04-16-2024 12-03-2021 Chronic Other screening for suspected conditions (not mental disorders or infectious disease) (5 sources) Patient encounter status; Translations: [Encounter for screening for malignant neoplasm of prostate] Onset: 04-16-2024 04-16-2024 Episodic Past or Other Problems Problem Classification Problem Date Documented Da te Episodic/Chronic Deficiency and other anemia (15 sources) Normocytic anemia; Translations: [Anemia, unspecified] Onset: 08-12-2023 08-14-2023 Episodic Fluid and electrolyte disorders (13 sources) Hypokalemia; Translations: [Hypokalemia] Onset: 05-08-2023 05-08-2023 Episodic Results Test Name Value Interpretation Reference Range Facility HbA1c (Bld) [Mass fraction]o n 04-16-2024 Interpretation and review of [facility] 04-16-2024 HbA1c (Bld) [Mass fraction] 6.30 % [facility] GLYCOHEMOGLOBIN A1Con 2022 ADA RECOMMENDATION SEE BELOW Normal [facility] Comment on above: Result Comment: ADA RECOMMENDED LIMIT 4.0 - 6.0 ADA THERAPEUTIC TARGET < 7.0 ACTION SUGGESTED > 7.0 Performed By: #### A 1C #### [facility] [address] [place] [address] Dr. Latisha Lindo Glucose [Mass/Vol] 194 mg/dL Normal [facility] Comment on above: Performed By: #### A 1C #### [facility] [address] [address] [address] Latisha Lindo HbA1c (Bld) [Mass fraction] 8.4 % Critically high 4.5-6.2 [facility] [place] [facility] Comment on above: Performed By: #### A 1C #### [facility] [address] [place] [address] Dr. Latisha Lindo CBC AUTO DIFFon 09-21-2021 BASO # 0.0 103/ul Normal 0.0-0.1 [facility] [place] [facility] Comment on above: Performed By: #### C BC #### [facility] [address] [place] [address] Dr. Latisha Lindo Basophils/100 WBC (Bld) 0.6 % Normal 0.2-2.0 [facility] [place] [facility] Comment on above: Performed By: #### C BC #### [facility] [address] [place] [address] Dr. Latisha Lindo EO # 0.2 103/ul Normal 0.0-0.7 [facility] Comment on above: Performed By: #### C BC #### [facility] [address] [place] [address] Dr. Latisha Lindo Eosinophils/100 WBC (Bld) 3.1 % Normal 0.9-7.0 [facility] Comment on above: Performed By: #### C BC #### [facility] [address] [place] [address] Dr. Latisha Lindo Erythrocyte distribution width (RBC) [Ratio] 13.1 % Normal 11.0-15.0 [facility] [place] [facility] Comment on above: Performed By: #### C BC #### [facility] [address] [place] [address] Dr. Latisha Lindo Hematocrit (Bld) [Volume fraction] 40.8 % Critically low 42.0-54.0 [facility] [place] [facility] Comment on above: Performed By: #### C BC #### [facility] [address] [place] [address] Dr. Latisha Lindo Hemoglobin (Bld) [Mass/Vol] 13.4 g/dL Critically low 14.0-18.0 [facility] Comment on above: Performed By: #### C BC #### [facility] [address] [place] [address] Dr. Latisha Lindo IG # 0.02 10e3/ul Normal 0.00-0.03 [facility] Comment on above: Performed By: #### C BC #### [facility] [address] [place] [address] Dr. Latisha Lindo IG % 0.3 % Normal 0.0-0.5 [facility] Comment on above: Performed By: #### C BC #### [facility] [address] [place] [address] Dr. Latisha Lindo LYMPH # 1.5 103/ul Normal 1.2-3.8 [facility] Comment on above: Performed By: #### C BC #### [facility] [address] [place] [address] Dr. Latisha Lindo Lymphocytes/100 WBC (Bld) 22.3 % Normal 20.5-60.0 [facility] [place] [facility] Comment on above: Performed By: #### C BC #### [facility] [address] [place] [address] Dr. Latisha Lindo MANUAL DIFF REQ NO Normal [facility] Comment on above: Performed By: #### C BC #### [facility] [address] [place] [address] Dr. Latisha Lindo MCH (RBC) [Entitic mass] 28.8 pg Normal 25.9-34.0 [facility] [place] [facility] Comment on above: Performed By: #### C BC #### [facility] [address] [place] [address] Dr. Latisha Lindo MCHC (RBC) [Mass/Vol] 32.8 g/dL Normal 29.9-35.2 [facility] Comment on above: Performed By: #### C BC #### [facility] [address] [place] [address] Dr. Latisha Lindo MCV (RBC) [Entitic vol] 87.6 fL Normal 80.0-94.0 [facility] Comment on above: Performed By: #### C BC #### [facility] [address] [place] [address] Dr. Latisha Lindo MONO # 0.6 103/ul Normal 0.3-0.8 [facility] Comment on above: Performed By: #### C BC #### [facility] [address] [place] [address] Dr. Latisha Lindo Monocytes/100 WBC (Bld) 8.3 % Normal 1.7-12.0 [facility] [place] [facility] Comment on above: Performed By: #### C BC #### [facility] [address] [place] [address] Dr. Latisha Lindo NEUT # 4.4 103/ul Normal 1.4-6.5 [facility] [place] [facility] Comment on above: Performed By: #### C BC #### [facility] [address] [place] [address] Dr. Latisha Lindo Neutrophils/100 WBC (Bld) 65.4 % Normal 43.0-75.0 [facility] [place] [facility] Comment on above: Performed By: #### C BC #### [facility] [address] [place] [address] Dr. Latisha Lindo Platelet mean volume (Bld) [Entitic vol] 9.7 fL Normal 9.5-13.5 [facility] [place] [facility] Comment on above: Performed By: #### C BC #### [facility] [address] [place] [address] Dr. Latisha Lindo PLT 253 103/ul Normal 150-450 [facility] [place] [facility] Comment on above: Performed By: #### C BC #### [facility] [address] [place] [address] Dr. Latisha Lindo RBC 4.66 106/ul Critically low 4.70-6.10 [facility] Comment on above: Performed By: #### C BC #### [facility] [address] [place] [address] Dr. Latisha Lindo WBC 6.8 103/ul Normal 4.0-11.0 [facility] [place] [facility] Comment on above: Performed By: #### C BC #### [facility] [address] [place] [address] Dr. Latisha Lindo GLYCOHEMOGLOBIN A1Con 2021 ADA RECOMMENDATION SEE BELOW Normal [facility] Comment on above: Result Comment: ADA RECOMMENDED LIMIT 4.0 - 6.0 ADA THERAPEUTIC TARGET < 7.0 ACTION SUGGESTED > 7.0 Performed By: #### A 1C #### [facility] [address] [place] [address] Dr. Latisha Lindo Glucose [Mass/Vol] 189 mg/dL Normal [facility] Comment on above: Performed By: #### A 1C #### [facility] [address] [place] [address] Dr. Latisha Lindo HbA1c (Bld) [Mass fraction] 8.2 % Critically high 4.5-6.2 [facility] [place] [facility] Comment on above: Performed By: #### A 1C #### [facility] [address] [address] [address] Latisha Lindo LIPID PROFILEon 09-21-2021 CHOL-HDL RATIO NORM SEE BELOW Normal [facility] Comment on above: Result Comment: 3.3 - 4.4 LOW RISK 4.4 - 7.1 AVERAGE RISK 7.1 - 11.0 MODERATE RISK >11.0 HIGH RISK Performed By: #### L IPID, BMP #### [facility] [address] [address] [address] Latisha Lindo Cholesterol [Mass/Vol] 126 mg/dL Normal <=200 [facility] [place] [facility] Comment on above: Performed By: #### L IPID, BMP #### [facility] [address] [address] [address] Latisha Lindo Cholesterol in HDL [Mass/Vol] 54 mg/dL Normal 40-60 [facility] [place] [facility] Comment on above: Performed By: #### L IPID, BMP #### [facility] [address] [address] [address] Latisha Lindo Cholesterol in LDL [Mass/Vol] 58.2 mg/dL Normal [facility] [place] [facility] Comment on above: Performed By: #### L IPID, BMP #### [facility] [address] [address] [address] Latisha Lindo Cholesterol.total/Cho lesterol in HDL [Mass ratio] 2.3 {ratio} Normal [facility] [place] [facility] Comment on above: Performed By: #### L IPID, BMP #### [facility] [address] [address] [address] Latisha Lindo HDL NORMAL > or = 60 mg/dl - LOW CARDIOVASCULAR RISK <40 mg/dl - HIGH CARDIOVASCULAR RISK Normal [facility] [place] [facility] Comment on above: Performed By: #### L IPID, BMP #### [facility] [address] [address] [address] Latisha Lindo LDL CALC NORMAL SEE BELOW Normal [facility] Comment on above: Result Comment: <100 mg/dl OPTIMAL 100 - 129 mg/dl NEAR OR ABOVE OPTIMAL 130 - 159 mg/dl BORDERLINE HIGH 160 - 189 mg/dl HIGH >190 mg/dl VERY HIGH Performed By: #### L IPID, BMP #### [facility] [address] [place] [address] Dr. Latisha Lindo Triglyceride [Mass/Vol] 69 mg/dL Normal <=150 [facility] [place] [facility] Comment on above: Performed By: #### L IPID, BMP #### [facility] [address] [place] [address] Dr. Latisha Lindo VLDL CALC 13.8 mg/dL Normal [facility] [place] [facility] Comment on above: Performed By: #### L IPID, BMP #### [facility] [address] [place] [address] Dr. Latisha Lindo PROF CHEM 8 (BAS METB)on Anion gap [Moles/Vol] 16.1 mmol/L Normal [facility] Comment on above: Performed By: #### L IPID, BMP #### [facility] [address] [place] [address] Dr. Latisha Lindo Calcium [Mass/Vol] 9.8 mg/dL Normal 8.5-10.1 [facility] Comment on above: Performed By: #### L IPID, BMP #### [facility] [address] [place] [address] Dr. Latisha Lindo Chloride [Moles/Vol] 103 mmol/L Normal 98-107 [facility] [place] [facility] Comment on above: Performed By: #### L IPID, BMP #### [facility] [address] [place] [address] Dr. Latisha Lindo CO2 [Moles/Vol] 25.7 mmol/L Normal 21.0-32.0 [facility] Comment on above: Performed By: #### L IPID, BMP #### [facility] [address] [place] [address] Dr. Latisha Lindo Creatinine [Mass/Vol] 1.02 mg/dL Normal 0.70-1.30 [facility] [place] [facility] Comment on above: Performed By: #### L IPID, BMP #### [facility] [address] [address] [address] Latisha Lindo EGFR-AF GAMBIAN >60 Normal >=60 [facility] Comment on above: Performed By: #### L IPID, BMP #### [facility] [address] [address] [address] Latisha Lindo EGFR-NON AF GAMBIAN >60 Normal >=60 [facility] [place] [facility] Comment on above: Performed By: #### L IPID, BMP #### [facility] [address] [address] [address] Latisha Lindo Glucose [Mass/Vol] 179 mg/dL Critically high 74-106 [facility] Comment on above: Performed By: #### L IPID, BMP #### [facility] [address] [address] [address] Latisha Lindo Potassium [Moles/Vol] 3.8 mmol/L Normal 3.5-5.1 [facility] [place] [facility] Comment on above: Performed By: #### L IPID, BMP #### [facility] [address] [address] [address] Latisha Lindo Sodium [Moles/Vol] 141 mmol/L Normal 136-145 [facility] Comment on above: Performed By: #### L IPID, BMP #### [facility] [address] [address] [address] Latisha Lindo Urea nitrogen [Mass/Vol] 21.0 mg/dL Critically high 7.0-18.0 [facility] [place] [facility] Comment on above: Performed By: #### L IPID, BMP #### [facility] [address] [address] [address] Latisha Lindo Urea nitrogen/Creatinine [Mass ratio] 20.6 mg/mg Normal [facility] [place] [facility] Comment on above: Performed By: #### L IPID, BMP #### [facility] [address] [address] [address] Latisha Lindo GLYCOHEMOGLOBIN A1Con 2021 ADA RECOMMENDATION ADA THERAPEUTIC TARGET 6.0 - 7.0 ACTION SUGGESTED > 7.0 Normal [facility] [place] [facility] Comment on above: Performed By: #### A 1C #### [facility] [address] [place], [place] [address] Dr. Latisha Lindo Glucose [Mass/Vol] 171 mg/dL Normal [facility] Comment on above: Performed By: #### A 1C #### [facility] [address] [place], [place] [address] Dr. Latisha iLndo HbA1c (Bld) [Mass fraction] 7.6 % Critically high <=6.0 [facility] [place] [facility] Comment on above: Performed By: #### A 1C #### [facility] [address] [place], [place] [address] Dr. Latisha Lindo Colonoscopy w/ or w/o biopsy on 05-25-2013 Transverse colon polyp Rectal polyp Otherwise normal [facility] This order was created through External Result Entry [facility] Vital Signs Date Time Vital Sign Value Performing Clinician Ramiro berumen 04-16-2024 09:56-0500 Diastolic blood pressure 82 mm[Hg] Anika Monzon RADIOLOGIC TECHNOLOGIST MAMMOGRAM Work Phone: [facility] 04-16-2024 09:56-0500 Systolic blood pressure 132 mm[Hg] Anika Monzon RADIOLOGIC TECHNOLOGIST MAMMOGRAM Work Phone: [facility] 04-16-2024 09:23-0500 Body mass index (BMI) [Ratio] 28.52 kg/m2 Anika Monzon RADIOLOGIC TECHNOLOGIST MAMMOGRAM Work Phone: [facility] 04-16-2024 09:23-0500 Body temperature 98.49 [degF] Anika Monzon RADIOLOGIC TECHNOLOGIST MAMMOGRAM Work Phone: [facility] 04-16-2024 09:23-0500 Body weight 92.76 kg nAika Monzon RADIOLOGIC TECHNOLOGIST MAMMOGRAM Work Phone: [facility] 04-16-2024 09:23-0500 Heart rate 66 /min Anika Monzon RADIOLOGIC TECHNOLOGIST MAMMOGRAM Work Phone: [facility] 04-16-2024 09:23-0500 Respiratory rate 18 /min Anika Monzon RADIOLOGIC TECHNOLOGIST MAMMOGRAM Work Phone: [facility] 04-16-2024 09:23-0500 SaO2% (BldA) [Mass fraction] 99 % Anika Monzon RADIOLOGIC TECHNOLOGIST MAMMOGRAM Work Phone: [facility] 10-15-2023 09:36-0400 Body height 180.3 cm Selina Lancastertrick RADIOLOGIC TECHNOLOGIST MAMMOGRAM Work Phone: [facility] 10-15-2023 09:36-0400 Body mass index (BMI) [Ratio] 28.31 kg/m2 Selina Newtonpatrick RADIOLOGIC TECHNOLOGIST MAMMOGRAM Work Phone: [facility] 10-15-2023 09:36-0400 Body temperature 96.49 [degF] Selina Newtonpatrick RADIOLOGIC TECHNOLOGIST MAMMOGRAM Work Phone: [facility] 10-15-2023 09:36-0400 Body weight 92.08 kg Selina Newtonpatrick RADIOLOGIC TECHNOLOGIST MAMMOGRAM Work Phone: [facility] 10-15-2023 09:36-0400 Diastolic blood pressure 80 mm[Hg] Selina Newtonpatrick RADIOLOGIC TECHNOLOGIST MAMMOGRAM Work Phone: [facility] 10-15-2023 09:36-0400 Heart rate 71 /min Selina Lancastertrick RADIOLOGIC TECHNOLOGIST MAMMOGRAM Work Phone: [facility] Comment on above: 98% O2 10-15-2023 09:36-0400 Systolic blood pressure 120 mm[Hg] Selina Newtonpatrick RADIOLOGIC TECHNOLOGIST MAMMOGRAM Work Phone: [facility] Healthcare Encounters Encounter Date Encounter Type Care Provider Facility Start: 04-16-2024 End: 04-16-2024 Bamboo flowsheet Anika Monzon RADIOLOGIC TECHNOLOGIST MAMMOGRAM Work Phone: [facility] Start: 04-16-2024 End: 04-16-2024 Bamboo flowsheet Anika Monzon RADIOLOGIC TECHNOLOGIST MAMMOGRAM Work Phone: [facility] Start: 04-16-2024 End: 04-16-2024 Patient encounter status Anika Monzon RADIOLOGIC TECHNOLOGIST MAMMOGRAM Work Phone: [facility] Start: 04-16-2024 End: 04-16-2024 Periodic preventive med est patient 40-64yrs Anika Monzon RADIOLOGIC TECHNOLOGIST MAMMOGRAM Work Phone: [facility] Comment on above: Wellness examination (Primary Dx); HTN (hypertension), benign (CMS/HCC); Type 2 diabetes mellitus without complication, without long-term current use of insulin (CMS/HCC); Mixed hyperlipidemia (CMS/HCC); Prostate cancer screening; Stage 2 hypertension (CMS/HCC); Type 2 diabetes mellitus without complications (CMS/HCC); Essential (primary) hypertension (CMS/HCC) Start: 04-16-2024 End: 04-16-2024 ambulatory ANIKA MONZON Not Available Start: 03-04-2024 End: 03-04-2024 Refill Selina Richmond RADIOLOGIC TECHNOLOGIST MAMMOGRAM Work Phone: [facility] Comment on above: Stage 2 hypertension (CMS/HCC) Start: 03-02-2024 End: 03-02-2024 Refill Selina Richmond RADIOLOGIC TECHNOLOGIST MAMMOGRAM Work Phone: [facility] Comment on above: Type 2 diabetes jorje itus without complication, without long- term current use of insulin (CMS/HCC) Essential (primary) hypertension (CMS/HCC) Type 2 diabetes jorje itus without complication, without long-term current use of insulin (CMS/HCC); Type 2 diabetes mellitus without complications (CMS/HCC) Start: 12-09-2023 End: 12-10-2023 Refill Mitzy Goncalves [facility] Comment on above: Type 2 diabetes jorje itus without complications (CMS/HCC); Type 2 diabetes mellitus without complication, without long-term current use of insulin (CMS/HCC) Start: 12-03-2023 End: 12-04-2023 Refill Selina Richmond RADIOLOGIC TECHNOLOGIST MAMMOGRAM Work Phone: [facility] Comment on above: Stage 2 hypertension (CMS/HCC) Start: 11-20-2023 End: 11-20-2023 Refill Shalonda Tuttle MA [facility] Comment on above: Stage 2 hypertension (CMS/HCC) Start: 10-15-2023 End: 10-15-2023 Bamboo flowsheet Selina Agk RADIOLOGIC TECHNOLOGIST MAMMOGRAM Work Phone: [facility] Start: 10-15-2023 End: 10-15-2023 Bamboo flowsheet Selina Lancastertrick RADIOLOGIC TECHNOLOGIST MAMMOGRAM Work Phone: [facility] Start: 10-15-2023 End: 10-15-2023 Office outpatient visit 25 minutes Selina Richmond RADIOLOGIC TECHNOLOGIST MAMMOGRAM Work Phone: [facility] Comment on above: Mixed hyperlipidemia (CMS/HCC) (Primary Dx); Normocytic anemia; Type 2 diabetes mellitus without complication, without long-term current use of insulin (CMS/HCC); HTN (hypertension), benign (CMS/HCC) Start: 10-15-2023 End: 10-15-2023 ambulatory SELINA LANCASTERTRICK Not Available Start: 08-21-2023 End: 08-21-2023 ambulatory DUSTY COLEMAN Not Available Start: 08-12-2023 End: 08-12-2023 ambulatory SHAIKH SERAFINLACY Not Available Start: 05-08-2023 End: 05-08-2023 ambulatory SHAIKH SHEILA Not Available Start: 04-03-2023 Orders Only Shaikh Sheila RODRIGUEZ Work Phone: [facility] Comment on above: Type 2 diabetes jorje itus without complication, without long- term current use of insulin (CMS/HCC) (Primary Dx) Start: 02-06-2023 Patient encounter status Shaik ailyn Sosa MD Work Phone: [facility] Start: 03-13-2022 End: 03-14-2022 ambulatory SHAIKH Ailyn SOSA Facility:H1 Start: 09-21-2021 End: 09-22-2021 ambulatory SHAIKH Ailyn SOSA Facility:[facility] Start: 05-29-2021 End: 05-30-2021 ambulatory SHAIKH Ailyn SOSA Facility:[facility] Start: 05-25-2013 Conversion Encounter Joshua guerrero MD Work Phone: [facility] Start: 05-25-2013 Legacy Encounter Joshua martinez MD Work Phone: [facility] Procedures Date Procedure Procedure Detail Performing Clinician Start: 04-16-2024 Hemoglobin glycosyla fletcher a1c Anika Monzon RADIOLOGIC TECHNOLOGIST MAMMOGRAM Work Phone: Start: 09-17-2023 Colonoscopy Selina Burris denny RADIOLOGIC TECHNOLOGIST MAMMOGRAM Work Phone: Start: 05-25-2013 COLONOSCOPY W/ OR W/ O BIOPSY Joshua Hsieh MD Work Phone: Plan of Treatment Date Care Activity Detail Author Start: 09-16-2033 Screening for malign ant neoplasm of colon [facility] Start: 03-03-2026 Glaucoma screening Diabetes: R etinopathy Screening [facility] Start: 10-14-2024 Hemoglobin A1c measurement Diabetes: Hemoglobin A1C [facility] Start: 08-01-2024 Urine screening for protein Diabetes: Urine Protein Screening [facility] Start: 04-16-2024 End: 04-16-2025 Comprehensive metabolic 2000 panel - Serum or Plasma Comprehensive metabolic panel Lab Routine Wellness examination Expected: 04/16/2024 (Approximate), Expires: 04/16/2025 [facility] Comment on above: Expected: 04/16/2024 (Approximate), Expires: 04/16/2025 Start: 04-16-2024 End: 04-16-2025 Lipid 1996 panel - Serum or Plasma Lipid panel Lab Routine Wellness examination Expected: 04/16/2024 (Approximate), Expires: 04/16/2025 [facility] Work Phone: Comment on above: Expected: 04/16/2024 (Approximate), Expires: 04/16/2025 Start: 04-16-2024 End: 04-16-2025 Microalbumin/Creatinine panel in random Urine Microalbumin / creatinine, urine ratio Lab Routine Wellness examination Expected: 04/16/2024 (Approximate), Expires: 04/16/2025 [facility] Comment on above: Expected: 04/16/2024 (Approximate), Expires: 04/16/2025 Start: 04-16-2024 End: 04-16-2025 Prostate specific Ag [Mass/volume] in Serum or Plasma PSA Lab Routine Wellness examination Expected: 04/16/2024 (Approximate), Expires: 04/16/2025 [facility] Comment on above: Expected: 04/16/2024 (Approximate), Expires: 04/16/2025 Start: 04-16-2024 End: 04-16-2025 Urinalysis complete panel - Urine Urinalysis with reflex microscopic (clean catch) Lab Routine Wellness examination Expected: 04/16/2024 (Approximate), Expires: 04/16/2025 [facility] Comment on above: Expected: 04/16/2024 (Approximate), Expires: 04/16/2025 Start: 04-16-2024 End: 04-16-2024 Patient encounter procedure [facility] Comment on above: HTN (hypertension), benign (CMS/HCC) (Primary Dx); Type 2 diabetes mellitus without complication, without long-term current use of insulin (CMS/HCC); Mixed hyperlipidemia (CMS/HCC); Prostate cancer screening; Wellness examination Start: 03-21-2024 Glaucoma screening Diabetes: R etinopathy Screening [facility] Start: 02-01-2024 Hemoglobin A1c measurement Diabetes: Hemoglobin A1C [facility] Start: 12-20-2023 Screening for malign ant neoplasm of colon [facility] Start: 10-26-2023 Urine screening for protein Diabetes: Urine Protein Screening [facility] Start: 10-20-2023 Influenza vaccination Influenza Vacc ine (#1) [facility] Start: 10-15-2023 End: 10-15-2023 Patient encounter procedure 10/15/2023 9:30 AM EDT Office Visit [facility] [address] [place] [id number] Selina Richmond NP [address] [place] [address] Arrived [facility] Comment on above: Arrived Start: 05-08-2023 End: 05-08-2023 Patient encounter procedure 05/08/2023 10:00 AM EDT [facility] [address] [place] [address] Shaikh Sosa MD [address] [place] [place] [id number] [facility] Start: 05-07-2023 Hemoglobin A1c measurement Diabetes: Hemoglobin A1C [facility] Start: 1960 Screening for malign ant neoplasm of colon [facility] Immunizations Immunization Date Immunization Notes Care Provider [facility] 02-04-2024 influenza, seasonal, injectable, preservative free Anika Nicolás RADIOLOGIC TECHNOLOGIST MAMMOGRAM Work Phone: [facility] 02-04-2024 influenza virus vacc ine, unspecified formulation Anika Nicolás RADIOLOGIC TECHNOLOGIST MAMMOGRAM Work Phone: [facility] 01-27-2023 influenza, injectabl e, quadrivalent, preservative free Selina Agk RADIOLOGIC TECHNOLOGIST MAMMOGRAM Work Phone: [facility] 01-27-2023 influenza virus vacc ine, unspecified formulation Selina Lancastertrick RADIOLOGIC TECHNOLOGIST MAMMOGRAM Work Phone: [facility] 01-22-2019 influenza, injectabl e, quadrivalent, preservative free Shaikh Sheila RODRIGUEZ Work Phone: [facility] 01-22-2019 zoster vaccine recombinant Shaikh Sheila RODRIGUEZ Work Phone: [facility] 12-18-2017 influenza virus vacc ine, unspecified formulation Selina Richmond RADIOLOGIC TECHNOLOGIST MAMMOGRAM Work Phone: [facility] 12-18-2017 influenza, injectabl e, quadrivalent, contains preservative Shaikh Sheila RODRIGUEZ Work Phone: [facility] 12-06-2016 influenza virus vacc ine, unspecified formulation Selina Lancastertrick RADIOLOGIC TECHNOLOGIST MAMMOGRAM Work Phone: [facility] 12-06-2016 influenza, injectabl e, quadrivalent, contains preservative Shaikh Sheila RODRIGUEZ Work Phone: [facility] 12-07-2015 influenza virus vacc ine, unspecified formulation Selina Richmond RADIOLOGIC TECHNOLOGIST MAMMOGRAM Work Phone: [facility] 12-07-2015 influenza, injectabl e, quadrivalent, contains preservative Shaikh Sheila RODRIGUEZ Work Phone: [facility] 05-05-2015 tetanus toxoid, redu geraldine diphtheria toxoid, and acellular pertussis vaccine, adsorbed Shaikh Sheila RODRIGUEZ Work Phone: [facility] 11-05-2014 influenza virus vacc ine, unspecified formulation Selina Richmond RADIOLOGIC TECHNOLOGIST MAMMOGRAM Work Phone: [facility] 11-05-2014 influenza virus vacc ine, whole virus Shaikh Sheila RODRIGUEZ Work Phone: [facility] 12-10-2013 pneumococcal polysaccharide vaccine, 23 valent Shaikh Sheila RODRIGUEZ Work Phone: [facility] Payers Date Payer Category Payer Private Health Insurance TYLER BLUM [id number] 2022 Unknown CHADD FLORENTINO [facility] [id number] 2022-Present [phone] [place] [id number] 2022 Unknown [id number] 1960 Unknown [id number] 1960 Unknown [id number] 1960 Unknown [id number] 1960 Unknown [id number] 1960 Unknown [id number] 1960 Unknown [id number] 1960 Unknown [id number] 1960 Unknown [id number] 1959 Unknown [id number] Social History Date Type Detail Facility [facility] Start: 1960 Sex Assigned At Not on file [facility] Start: 02-04-2023 End: 04-10-2024 Gender identity Not on file [facility] Start: 02-06-2023 Tobacco smoking stat [facility] Never smoked tobacco [facility] Start: 02-06-2023 Tobacco use and exposure Smokeless tobacco non-user [facility] Start: 02-20-2023 Alcohol intake Current drinke r of alcohol (finding) [facility] Start: 02-04-2023 End: 04-10-2024 History of Social function [facility] Within [...] Alcohol Comment occassional [facility] Start: 10-15-2023 End: 04-16-2024 Alcoholic beverage intake Ex-drinker (finding) [facility] How often to you hav e a drink containing alcohol? 2-4 times a month [facility] How many standard drinks containing alcohol do you have on a typical day? 1 or 2 [facility] How often do you hav e 6 or more drinks on 1 occasion? Never [facility] NEGATED: Highlighted rowStart: CHRISTOPHER History of tobacco use Passive smoker [facility] Medical Equipment Procedure Code Equipment Code Equipment Origin al Text Equipment Identifier Dates 1 each by Other route in the morning. [id number] Start: 03-22-2022 1 each by Other route in the morning. [id number] Start: 01-26-2023 1 each by Other route Daily [id number] Start: 06-18-2023 End: 01-04-2024 Clinical Notes 10-15-2023 to 04-16-2024 LIVE COULTER - 04/16/2024 9:20 AM ESTLisa Nicloás NP - 04/16/2024 9:20 AM ESTLisa Nicolás, RADIOLOGIC TECHNOLOGIST MAMMOGRAM - 04/16/2024 6:28 AM ESTLisa Nicolás, JESSICA - 04/16/2024 6:25 AM ESTPatient Instructions Note Date & Type Note Facility 04-16-2024 History of Presen t illness Narrative Ozempic needs renewed Fasting glucose 90-110 range Images from the original note were not included. Prosper Givens is a 63 y.o. male presents with chief complaint of Diabetes HPI: Diet: balanced Activity:works out daily Mental Health Concerns: none Falls in the last year: no Any hearing problems: none Any Vision problems: [place] Any Hospitalizations in the last year: none Specialist: dr fernandse Diabetes He presents for his follow-up diabetic visit. He has type 2 diabetes mellitus. His disease course has been stable. There are no hypoglycemic associated symptoms. Pertinent negatives for hypoglycemia include no dizziness, nervousness/anxiousness, seizures or tremors. Pertinent negatives for diabetes include no blurred vision, no chest pain, no foot paresthesias, no polydipsia, no polyphagia and no polyuria. There are no hypoglycemic complications. Symptoms are stable. Pertinent negatives for diabetic complications include no CVA, heart disease, nephropathy or peripheral neuropathy. Risk factors for coronary artery disease include dyslipidemia, hypertension and male sex. Current diabetic treatment includes oral agent (dual therapy) (GLP 1). He has not had a previous visit with a dietitian. He participates in exercise daily. His overall blood glucose range is 90-110 mg/dl. An HALINA inhibitor/angiotensin II receptor jozef is being taken. Eye exam is current. Hypertension This is a chronic problem. The current episode started more than 1 year ago. The problem is unchanged. The problem is controlled. Pertinent negatives include no blurred vision, chest pain, neck pain, peripheral edema or shortness of breath. There are no associated agents to hypertension. Risk factors for coronary artery disease include diabetes mellitus, dyslipidemia and male gender. Past treatments include calcium channel blockers and angiotensin blockers. The current treatment provides significant improvement. There are no compliance problems. There is no history of kidney disease, CAD/MN, CVA or heart failure. SUBJECTIVE: MEDICATIONS: Current Outpatient Medications Medication Instructions amLODIPine (NORVASC) 10 mg, Oral, Daily aspirin 81 MG EC tablet 1 tablet, Daily atorvastatin (LIPITOR) 20 mg, Oral, Nightly glipiZIDE (GLUCOTROL) 5 mg, Oral, 2 times daily before meals latanoprost (Xalatan) 0.005 % ophthalmic solution losartan (COZAAR) 100 mg, Oral, Daily metFORMIN (GLUCOPHAGE) 1,000 mg, Oral, 2 times daily with meals Ozempic (1 MG/DOSE) 1 mg, Subcutaneous, Weekly ALLERGIES: Allergies Allergen Reactions Penicillins Diarrhea REVIEW OF SYMPTOMS: Review of Systems Constitutional: Negative for activity change, appetite change and unexpected weight change. HENT: Negative for ear pain, nosebleeds, sneezing, trouble swallowing and voice change. Eyes: Negative for blurred vision, pain, discharge and visual disturbance. Respiratory: Negative for apnea, chest tightness, shortness of breath and wheezing. Cardiovascular: Negative for chest pain and leg swelling. Gastrointestinal: Negative for abdominal distention, blood in stool, constipation and diarrhea. Genitourinary: Negative for decreased urine volume, difficulty urinating, dysuria and hematuria. Musculoskeletal: Negative for neck pain. Skin: Negative for color change. Neurological: Negative for dizziness, tremors and seizures. Psychiatric/Behavioral: Negative for agitation, decreased concentration, hallucinations, self-injury and suicidal ideas. The patient is not nervous/anxious. Hematological: Negative for adenopathy. Does not bruise/bleed easily. Endocrine: Negative for cold intolerance, heat intolerance, polydipsia, polyphagia and polyuria. Allergic/Immunologic: Negative for environmental allergies and food allergies. PAST MEDICAL HISTORY Past Medical History: Diagnosis Date Acute ear infection Left ear infection, likely OTITIS media started as OTITIS externa. No systemic signs Allergic reaction to detergent Allergic reaction to possibly a fabric shoe cleaner. No new drugs or food involved At low risk for fall Benign essential hypertension (CMS/HCC) Above goal. Asymptomatic Asymptomatic. Tolerating meds Diastasis recti No pain, unchanged. Dyslipidemia (CMS/HCC) Excess ear wax Overweight Type 2 diabetes mellitus without complication, without long-term current use of insulin (CMS/HCC) Last A1C 8.4 Currently on metformin and glipizide. Ozempic and Mounjaro too expensive with the deductibles. Past Surgical History: Procedure Laterality Date CHOLECYSTECTOMY 02/2016 family history includes Cancer in his father and mother; Hypertension in his father. OBJECTIVE: Visit Vitals BP 132/82 (BP Location: Left arm, Patient Position: Sitting, BP Cuff Size: Large adult) Pulse 66 Temp 98.5 F (Temporal) Resp 18 Wt 204 lb 8 oz SpO2 99% BMI 28.52 kg/m Smoking Status Never BSA 2.16 m Physical Exam Vitals and nursing note reviewed. Constitutional: Appearance: Normal appearance. He is not ill-appearing. HENT: Head: Normocephalic. Right Ear: Tympanic membrane, ear canal and external ear normal. There is impacted cerumen. Left Ear: Tympanic membrane, ear canal and external ear normal. There is impacted cerumen. Ears: Comments: Cerumen removed with cerumen spoon Nose: Nose normal. Mouth/Throat: Mouth: Mucous membranes are moist. Pharynx: Oropharynx is clear. Eyes: Extraocular Movements: Extraocular movements intact. Conjunctiva/sclera: Conjunctivae normal. Neck: Vascular: No carotid bruit. Cardiovascular: Rate and Rhythm: Normal rate and regular rhythm. Pulses: Normal pulses. Heart sounds: Normal heart sounds. Pulmonary: Effort: Pulmonary effort is normal. No respiratory distress. Breath sounds: Normal breath sounds. No wheezing or rales. Abdominal: General: Bowel sounds are normal. There is no distension. Palpations: Abdomen is soft. There is no mass. Tenderness: There is no abdominal tenderness. Hernia: No hernia is present. Musculoskeletal: Cervical back: Neck supple. Right lower leg: No edema. Left lower leg: No edema. Lymphadenopathy: Cervical: No cervical adenopathy. Skin: General: Skin is warm and dry. Capillary Refill: Capillary refill takes 2 to 3 seconds. Coloration: Skin is not jaundiced. Findings: No erythema or rash. Neurological: General: No focal deficit present. Mental Status: He is alert. Psychiatric: Mood and Affect: Mood normal. Behavior: Behavior normal. Thought Content: Thought content normal. Judgment: Judgment normal. ASSESSMENT AND PLAN: No follow-ups on file. Problem List Items Addressed This Visit Type 2 diabetes mellitus without complication, without long-term current use of insulin ([facility]) Check blood sugars daily, notify if <70 or >200. Take medications (pills or insulin) as directed. Monitor for s/s of hypoglycemia (sweaty, dizziness, nausea, vomiting, or shakiness). Watch for increase in thirst, urination, or appetite. Inspect feet frequently monitoring for open wounds , and also recommend yearly eye exam. Pt should attempt to remain as physically active as chronic conditions allow, as well as trying to follow a diet low in carbohydrates, and simple sugars. Meds: asa, statin, arb, glipizide, metformin, and ozempic A1c: 6.3% Relevant Medications metFORMIN (Glucophage) 1000 MG tablet atorvastatin (Lipitor) 20 MG tablet Other Relevant Orders POCT glycosylated hemoglobin (Hb A1C) docked device (Completed) Mixed hyperlipidemia (CMS/HCC) On statin therapy Check labs yearly and prn dose changes Wellness examination - Primary Reviewed Ht/Wt/BMI Recommend eye exam yearly Recommend dental exams twice a year Balance work/leisure activities Exercises is recommended most days of the week (appropriate as chronic conditions allow) Follow up yearly and prn Relevant Orders Lipid panel Comprehensive metabolic panel Microalbumin / creatinine, urine ratio Urinalysis with reflex microscopic (clean catch) PSA HTN (hypertension), benign (CMS/HCC) Please check blood pressure daily and record DASH diet Limit caffeine Take medication as directed Contact office if chest pain, pressure, dizziness, shortness of breath, swelling legs Recommend slow position changes Current meds: amlodipine, losartan Prostate cancer screening Other Visit Diagnoses Stage 2 hypertension (CMS/HCC) Relevant Medications losartan (Cozaar) 100 MG tablet Type 2 diabetes mellitus without complications (CMS/HCC) Relevant Medications semaglutide (Ozempic, 1 MG/DOSE,) 4 MG/3ML solution pen-injector glipiZIDE (Glucotrol) 5 MG tablet Other Relevant Orders POCT glycosylated hemoglobin (Hb A1C) docked device (Completed) Essential (primary) hypertension (CMS/HCC) Relevant Medications amLODIPine (Norvasc) 10 MG tablet Associated Problem(s): Wellness examination Reviewed Ht/Wt/BMI Recommend eye exam yearly Recommend dental exams twice a year Balance work/leisure activities Exercises is recommended most days of the week (appropriate as chronic conditions allow) Follow up yearly and prn Associated Problem(s): Mixed hyperlipidemia (CMS/HCC) On statin therapy Check labs yearly and prn dose changes Associated Problem(s): Type 2 diabetes mellitus without complication, without long-term current use of insulin (CMS/HCC) Check blood sugars daily, notify if <70 or >200. Take medications (pills or insulin) as directed. Monitor for s/s of hypoglycemia (sweaty, dizziness, nausea, vomiting, or shakiness). Watch for increase in thirst, urination, or appetite. Inspect feet frequently monitoring for open wounds , and also recommend yearly eye exam. Pt should attempt to remain as physically active as chronic conditions allow, as well as trying to follow a diet low in carbohydrates, and simple sugars. Meds: asa, statin, arb, glipizide, metformin, and ozempic A1c: 6.3% Associated Problem(s): HTN (hypertension), benign (CMS/HCC) Please check blood pressure daily and record DASH diet Limit caffeine Take medication as directed Contact office if chest pain, pressure, dizziness, shortness of breath, swelling legs Recommend slow position changes Current meds: amlodipine, losartan documented in this encounter [facility] 04-16-2024 Instructions Anika Monzon NP - 04/16/2024 9:20 AM EST No med dose changes Keep up the good work Labs: fasting 8 hours documented in this encounter [facility] 11-20-2023 Telephone encount er Note Pt called needing a refill on his Lozartan 100 mg tablet[facility] [place] SERENA:10/15/2023 NOV: [facility] 11-20-2023 Miscellaneous Notes Formattin g of this note might be different from the original. Pt called needing a refill on his Lozartan 100 mg tablet. [facility] [place] SERENA:10/15/2023 NOV: documented in this encounter [facility] 10-15-2023 History of Presen t illness Narrative Associated Problem(s): Type 2 diabetes mellitus without complication, without long-term current use of insulin (CMS/HCC) Most recent labs: hemoglobin A1C 6.1 Average FSBS range from BGs consistently in an acceptable range No episode of hypoglycemia No medication adverse effects reported by the patient. Patient educated on lifestyle modifications, dietary restrictions, signs and symptoms of hypoglycemia/hyperglycemia and importance of eating regular consistent meals. Stressed upon importance of checking blood glucose at home and bring blood glucose log to appointments. All questions, concerns answered and addressed. Encouraged to call office if persistent hypoglycemia/hyperglycemia on home glucose monitoring noted. Last DM Eye Exam- July 2023 Diabetic foot exam done in office today; Continue Glipizide 5mg Metfromin 1,000mg Semaglutide 1mg injection. Associated Problem(s): Mixed hyperlipidemia (CMS/HCC) Atorvastatin 20mg. Denies Myalgias. Most recent Lipid Panel in July WN. Continue Atorvastatin. Associated Problem(s): HTN (hypertension), benign (CMS/HCC) Amlodipine 10mg Losartan 100mg Checks BP infrequently at home. BP is good today in office; Denies orthostatic changes; dizziness, edema; Continue BP monitoring at home, bring back log to next visit. Continue Amlodipine and Losartan. Associated Problem(s): Normocytic anemia Following Dr. Fernandes Hem/Onc for anemia; Iron levels had normalized at last visit. Stopped infusions for now. Images from the original note were not included. Subjective Patient ID: Prosper Givens is a 63 y.o. male who presents for Follow-up (2mo, pt denies any issues/concerns). HPI HTN: Checks BP infrequently at home. BP is good today in office; Denies orthostatic changes; dizziness, edema; Continue BP monitoring at home, bring back log to next visit. HLD: Component Ref Range & Units 2 mo ago (08/02/23) 2 mo ago (08/02/23) 2 mo ago (08/02/23) 2 mo ago (08/02/23) 5 mo ago (04/25/23) 5 mo ago (04/25/23) 5 mo ago (04/25/23) TRIGLYCERIDES <=150 mg/dL 67 138 R 23.9 R 76.52 R 101 137 R 24.1 R CHOLESTEROL <=200 mg/dL 91 3.1 Low R 0.3 R 86 3.0 Low R 0.4 R HDL CHOLESTEROL 40 - 60 mg/dL 50 13.2 R 4.1 R 50 CM 14.3 R 5.1 R Comment: > or =60 mg/dl - LOW CARDIOVASCULAR RISK <40 mg/dl - HIGH CARDIOVASCULAR RISK LDL CHOLESTEROL CALCULATED mg/dL 27.6 124 High R 1.6 R 15.8 CM 120 High R 1.9 R Comment: <100 mg/dl OPTIMAL 100-129 mg/dl NEAR OR ABOVE OPTIMAL 130-159 mg/dl BORDERLINE HIGH 160-189 mg/dl HIGH >190 mg/dl VERY HIGH VLDL CHOLESTEROL mg/dL 13.4 1.4 High R 0.7 R 20.2 1.4 High R 0.6 R CHOL HDL RATIO 1.8 21 R 0.02 R 1.7 CM 19 R 0.03 R Comment: 3.3 - 4.4 LOW RISK 4.4 - 7.1 AVERAGE RISK 7.1 - 11.0 MODERATE RISK >11.0 HIGH RISK ALANINE AMINOTRANSFERASE 48 R 41 R ALKALINE PHOSPHATASE 54 R 55 R TOTAL PROTEIN 7.1 R 7.6 R ALBUMIN LEVEL 3.7 R 3.9 R ALBUMIN GLOBULIN RATIO 1.1 1.1 Resulting Agency [facility] DMII: Component Ref Range & Units 2 mo ago 5 mo ago GLYCOHEMOGLOBIN A1C 4.5 - 6.2 % 6.1 6.8 High CM Comment: ADA RECOMMENDED LIMIT 4.0 - 6.0 ADA THERAPEUTIC TARGET < 7.0 ACTION SUGGESTED > 7.0 ESTIMATED AVERAGE GLUCOSE mg/dL 128 148 Resulting Agency [facility] Most recent labs: hemoglobin A1C 6.1 Average FSBS range from BGs consistently in an acceptable range No episode of hypoglycemia No medication adverse effects reported by the patient. Patient educated on lifestyle modifications, dietary restrictions, signs and symptoms of hypoglycemia/hyperglycemia and importance of eating regular consistent meals. Stressed upon importance of checking blood glucose at home and bring blood glucose log to appointments. All questions, concerns answered and addressed. Encouraged to call office if persistent hypoglycemia/hyperglycemia on home glucose monitoring noted. Last DM Eye Exam- July 2023 Diabetic foot exam: Left: Reflexes 2+ Vibratory sensation normal Proprioception normal Sharp/dull discrimination normal Filament test present Right: Reflexes 2+ Vibratory sensation normal Proprioception normal Sharp/dull discrimination normal Filament test present Review of Systems Constitutional: Negative for activity change, appetite change, chills, diaphoresis, fatigue, fever and unexpected weight change. HENT: Negative for congestion, ear pain, rhinorrhea, sinus pressure, sinus pain, sneezing, sore throat, trouble swallowing and voice change. Eyes: Negative for visual disturbance. Respiratory: Negative for cough, chest tightness, shortness of breath and wheezing. Cardiovascular: Negative for chest pain, palpitations and leg swelling. Gastrointestinal: Negative for abdominal distention, abdominal pain, blood in stool, constipation, diarrhea and vomiting. Genitourinary: Negative for decreased urine volume, dysuria, flank pain, frequency, hematuria and urgency. Musculoskeletal: Negative for arthralgias, gait problem, joint swelling and myalgias. Skin: Negative for rash. Neurological: Negative for dizziness, tremors, syncope, weakness, light-headedness and headaches. Psychiatric/Behavioral: Negative for decreased concentration and suicidal ideas. The patient is not nervous/anxious. Hematological: Does not bruise/bleed easily. Endocrine: Negative for cold intolerance, heat intolerance, polydipsia, polyphagia and polyuria. Objective Physical Exam Vitals reviewed. Constitutional: Appearance: Normal appearance. HENT: Head: Normocephalic and atraumatic. Right Ear: Tympanic membrane normal. Left Ear: Tympanic membrane normal. Nose: Nose normal. Mouth/Throat: Mouth: Mucous membranes are moist. Pharynx: Oropharynx is clear. Eyes: Pupils: Pupils are equal, round, and reactive to light. Cardiovascular: Rate and Rhythm: Normal rate and regular rhythm. Pulses: Normal pulses. Heart sounds: Normal heart sounds. Pulmonary: Effort: Pulmonary effort is normal. Breath sounds: Normal breath sounds. Abdominal: General: Abdomen is flat. Bowel sounds are normal. Palpations: Abdomen is soft. Musculoskeletal: General: Normal range of motion. Cervical back: Normal range of motion. Skin: General: Skin is warm and dry. Capillary Refill: Capillary refill takes less than 2 seconds. Neurological: General: No focal deficit present. Mental Status: He is alert and oriented to person, place, and time. Psychiatric: Mood and Affect: Mood normal. Behavior: Behavior normal. Assessment/Plan Problem List Items Addressed This Visit Type 2 diabetes mellitus without complication, without long-term current use of insulin (CMS/HCC) Most recent labs: hemoglobin A1C 6.1 Average FSBS range from BGs consistently in an acceptable range No episode of hypoglycemia No medication adverse effects reported by the patient. Patient educated on lifestyle modifications, dietary restrictions, signs and symptoms of hypoglycemia/hyperglycemia and importance of eating regular consistent meals. Stressed upon importance of checking blood glucose at home and bring blood glucose log to appointments. All questions, concerns answered and addressed. Encouraged to call office if persistent hypoglycemia/hyperglycemia on home glucose monitoring noted. Last DM Eye Exam- July 2023 Diabetic foot exam done in office today; Continue Glipizide 5mg Metfromin 1,000mg Semaglutide 1mg injection. Mixed hyperlipidemia (CMS/HCC) - Primary Atorvastatin 20mg. Denies Myalgias. Most recent Lipid Panel in July WN. Continue Atorvastatin. HTN (hypertension), benign (CMS/HCC) Amlodipine 10mg Losartan 100mg Checks BP infrequently at home. BP is good today in office; Denies orthostatic changes; dizziness, edema; Continue BP monitoring at home, bring back log to next visit. Continue Amlodipine and Losartan. Normocytic anemia Following Dr. Fernandes Hem/Onc for anemia; Iron levels had normalized at last visit. Stopped infusions for now. documented in this encounter [facility] 08-27-2024 Instructions Selina Richmond NP - 10/15/2023 9:30 AM EDT Your BP looks good in the office today! Continue medications as prescribed. Education: Check blood sugars daily, notify if <70 or >200. Take medications (pills or insulin) as directed. Monitor for s/s of hypoglycemia (sweaty, dizziness, nausea, vomiting, or shakiness). Watch for increase in thirst, urination, or appetite. Inspect feet frequently monitoring for open wounds , and also recommend yearly eye exam. Pt should attempt to remain as physically active as chronic conditions allow, as well as trying to follow a diet low in carbohydrates, and simple sugars. documented in this encounter [facility] Healthcare Evaluation note Diagnosis Type 2 diabetes mellitus without complication, without long-term current use of insulin (CMS/HCC)- Primary documented in this encounter [facility] note* Diagnosis Stage 2 hypertension (CMS/HCC) documented in this encounter [facility] HealthcareEvaluation note* Diagnosis Type 2 diabetes mellitus without complication, without long-term current use of insulin (CMS/HCC)- Primary Stage 2 hypertension (CMS/HCC) Mixed hyperlipidemia (CMS/HCC) Mixed hyperlipidemia Wellness examination Hypokalemia- Primary Hypopotassemia Stage 2 hypertension (CMS/HCC) Type 2 diabetes mellitus without complication, without long-term current use of insulin (CMS/HCC) Mixed hyperlipidemia (CMS/HCC) Mixed hyperlipidemia Hypokalemia- Primary Hypopotassemia Microcytic anemia Unspecified iron deficiency anemia Stage 2 hypertension (CMS/HCC) Normocytic anemia- Primary Unspecified anemia Mixed hyperlipidemia (CMS/HCC)- Primary Mixed hyperlipidemia Normocytic anemia Unspecified anemia Type 2 diabetes mellitus without complication, without long-term current use of insulin (CMS/HCC) HTN (hypertension), benign (CMS/HCC) Essential hypertension, benign Stage 2 hypertension (CMS/HCC) documented in this encounter [facility] HealthcareEvaluation note* Diagnosis Type 2 diabetes mellitus without complication, without long-term current use of insulin (CMS/HCC)- Primary Stage 2 hypertension (CMS/HCC) Mixed hyperlipidemia (CMS/HCC) Mixed hyperlipidemia Wellness examination Hypokalemia- Primary Hypopotassemia Stage 2 hypertension (CMS/HCC) Type 2 diabetes mellitus without complication, without long-term current use of insulin (CMS/HCC) Mixed hyperlipidemia (CMS/HCC) Mixed hyperlipidemia Hypokalemia- Primary Hypopotassemia Microcytic anemia Unspecified iron deficiency anemia Stage 2 hypertension (CMS/HCC) Normocytic anemia- Primary Unspecified anemia Mixed hyperlipidemia (CMS/HCC)- Primary Mixed hyperlipidemia Normocytic anemia Unspecified anemia Type 2 diabetes mellitus without complication, without long-term current use of insulin ([facility]/HCC) HTN (hypertension), benign (CMS/HCC) Essential hypertension, benign Type 2 diabetes mellitus without complications ([facility]/HCC) Type 2 diabetes mellitus without complication, without long-term current use of insulin ([facility]/HCC) documented in this encounter [facility] HealthcareEvaluation note* Diagnosis Mixed hyperlipidemia (CMS/HCC)- Primary Mixed hyperlipidemia Normocytic anemia Unspecified anemia Type 2 diabetes mellitus without complication, without long-term current use of insulin ([facility]/HCC) HTN (hypertension), benign ([facility]/HCC) Essential hypertension, benign documented in this encounter [facility] HealthcareEvaluation note* Diagnosis Type 2 diabetes mellitus without complication, without long-term current use of insulin ([facility]/HCC)- Primary Stage 2 hypertension (CMS/HCC) Mixed hyperlipidemia (CMS/HCC) Mixed hyperlipidemia Wellness examination Hypokalemia- Primary Hypopotassemia Stage 2 hypertension (CMS/HCC) Type 2 diabetes mellitus without complication, without long-term current use of insulin ([facility]/HCC) Mixed hyperlipidemia ([facility]/HCC) Mixed hyperlipidemia Hypokalemia- Primary Hypopotassemia Microcytic anemia Unspecified iron deficiency anemia Stage 2 hypertension (CMS/HCC) Normocytic anemia- Primary Unspecified anemia Mixed hyperlipidemia (CMS/HCC)- Primary Mixed hyperlipidemia Normocytic anemia Unspecified anemia Type 2 diabetes mellitus without complication, without long-term current use of insulin ([facility]/HCC) HTN (hypertension), benign ([facility]/HCC) Essential hypertension, benign Type 2 diabetes mellitus without complication, without long-term current use of insulin ([facility]/HCC) documented in this encounter [facility] HealthcareEvaluation note* Diagnosis Type 2 diabetes mellitus without complication, without long-term current use of insulin ([facility]/HCC)- Primary Stage 2 hypertension (CMS/HCC) Mixed hyperlipidemia (CMS/HCC) Mixed hyperlipidemia Wellness examination Hypokalemia- Primary Hypopotassemia Stage 2 hypertension ([facility]/HCC) Type 2 diabetes mellitus without complication, without long-term current use of insulin (CMS/HCC) Mixed hyperlipidemia (CMS/HCC) Mixed hyperlipidemia Hypokalemia- Primary Hypopotassemia Microcytic anemia Unspecified iron deficiency anemia Stage 2 hypertension (CMS/HCC) Normocytic anemia- Primary Unspecified anemia Mixed hyperlipidemia (CMS/HCC)- Primary Mixed hyperlipidemia Normocytic anemia Unspecified anemia Type 2 diabetes mellitus without complication, without long-term current use of insulin (CMS/HCC) HTN (hypertension), benign (CMS/HCC) Essential hypertension, benign Essential (primary) hypertension (CMS/HCC) Unspecified essential hypertension documented in this encounter [facility] HealthcareEvaluation note* Diagnosis Type 2 diabetes mellitus without complication, without long-term current use of insulin (CMS/HCC)- Primary Stage 2 hypertension (CMS/HCC) Mixed hyperlipidemia (CMS/HCC) Mixed hyperlipidemia Wellness examination Hypokalemia- Primary Hypopotassemia Stage 2 hypertension (CMS/HCC) Type 2 diabetes mellitus without complication, without long-term current use of insulin (CMS/HCC) Mixed hyperlipidemia (CMS/HCC) Mixed hyperlipidemia Hypokalemia- Primary Hypopotassemia Microcytic anemia Unspecified iron deficiency anemia Stage 2 hypertension (CMS/HCC) Normocytic anemia- Primary Unspecified anemia Mixed hyperlipidemia (CMS/HCC)- Primary Mixed hyperlipidemia Normocytic anemia Unspecified anemia Type 2 diabetes mellitus without complication, without long-term current use of insulin ([facility]/HCC) HTN (hypertension), benign (CMS/HCC) Essential hypertension, benign Type 2 diabetes mellitus without complication, without long-term current use of insulin (CMS/HCC) Type 2 diabetes mellitus without complications (CMS/HCC) documented in this encounter [facility] HealthcareEvaluation note* Diagnosis Type 2 diabetes mellitus without complication, without long-term current use of insulin (CMS/HCC)- Primary Stage 2 hypertension (CMS/HCC) Mixed hyperlipidemia (CMS/HCC) Mixed hyperlipidemia Wellness examination Hypokalemia- Primary Hypopotassemia Stage 2 hypertension (CMS/HCC) Type 2 diabetes mellitus without complication, without long-term current use of insulin (CMS/HCC) Mixed hyperlipidemia (CMS/HCC) Mixed hyperlipidemia Hypokalemia- Primary Hypopotassemia Microcytic anemia Unspecified iron deficiency anemia Stage 2 hypertension (CMS/HCC) Normocytic anemia- Primary Unspecified anemia Mixed hyperlipidemia (CMS/HCC)- Primary Mixed hyperlipidemia Normocytic anemia Unspecified anemia Type 2 diabetes mellitus without complication, without long-term current use of insulin (CMS/HCC) HTN (hypertension), benign (CMS/HCC) Essential hypertension, benign Stage 2 hypertension (CMS/HCC) documented in this encounter [facility]* Diagnosis Type 2 diabetes mellitus without complication, without long-term current use of insulin (CMS/HCC)- Primary Stage 2 hypertension (CMS/HCC) Mixed hyperlipidemia (CMS/HCC) Mixed hyperlipidemia Wellness examination Hypokalemia- Primary Hypopotassemia Stage 2 hypertension (CMS/HCC) Type 2 diabetes mellitus without complication, without long-term current use of insulin (CMS/HCC) Mixed hyperlipidemia (CMS/HCC) Mixed hyperlipidemia Hypokalemia- Primary Hypopotassemia Microcytic anemia Unspecified iron deficiency anemia Stage 2 hypertension (CMS/HCC) Normocytic anemia- Primary Unspecified anemia Mixed hyperlipidemia (CMS/HCC)- Primary Mixed hyperlipidemia Normocytic anemia Unspecified anemia Type 2 diabetes mellitus without complication, without long-term current use of insulin (CMS/HCC) HTN (hypertension), benign (CMS/HCC) Essential hypertension, benign Wellness examination- Primary HTN (hypertension), benign (CMS/HCC) Essential hypertension, benign Type 2 diabetes mellitus without complication, without long-term current use of insulin (CMS/HCC) Mixed hyperlipidemia (CMS/HCC) Mixed hyperlipidemia Prostate cancer screening Special screening for malignant neoplasm of prostate Stage 2 hypertension (CMS/HCC) Type 2 diabetes mellitus without complications (CMS/HCC) Essential (primary) hypertension (CMS/HCC) Unspecified essential hypertension documented in this encounter [facility] Summary [...] pital DATE CREATED AUTHOR AUTHOR'S ORGANIZ ATION 04/18/2024 [facility] Care Teams (unrecognized sec tion and content) 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 Relationship Specialty Start Date End Date Joshua Hsieh MD [address] [place] [id number] PCP - General 10/12/15 04/19/22 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 Relationship Specialty Start Date End Date Shaikh Sosa MD PCP - General Internal Medicine 08/24/22 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 Relationship Specialty Start Date End Date Brenton Barroso MD [address] [place] [phone] PCP - General Family Medicine 09/23/23 Selina Richmond NP [address] [place] [phone] Nurse Practitioner Family Medicine 09/23/23 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 Relationship Specialty Start Date End Date Brenton Barroso MD [address] [place] [phone] PCP - General Family Medicine 09/23/23 Selina Richmond NP [address] [place] [phone] Nurse Practitioner Family Medicine 09/23/23 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 Relationship Specialty Start Date End Date Brenton Barroso MD [address] [place] [phone] PCP - General Family Medicine 09/23/23 Selina Richmond NP [address] [place] [address] Nurse Practitioner Family Medicine 09/23/23 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 Relationship Specialty Start Date End Date Brenton Barroso MD [address] [place] [phone] PCP - General Family Medicine 09/23/23 Selina Richmond NP [address] [place] [address] Nurse Practitioner Family Medicine 09/23/23 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 Relationship Specialty Start Date End Date Brenton Barroso MD [address] [place] [phone] PCP - General Family Medicine 09/23/23 Selina Richmond NP [address] [place] [address] Nurse Practitioner Family Medicine 09/23/23 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 Relationship Specialty Start Date End Date Brenton Barroso MD [address] [place] [phone] PCP - General Family Medicine 09/23/23 Selina Richmond NP [address] [place] [address] Nurse Practitioner Family Medicine 09/23/23 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 Relationship Specialty Start Date End Date Brenton Barroso MD [address] [place] [phone] PCP - General Family Medicine 09/23/23 Selina Richmond NP [address] [place] [address] Nurse Practitioner Family Medicine 09/23/23 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 Relationship Specialty Start Date End Date Brenton Barroso MD [address] [place] [phone] PCP - General Family Medicine 09/23/23 Selina Richmond NP [address] [place] [phone] Nurse Practitioner Family Medicine 09/23/23 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 Relationship Specialty Start Date End Date Brenton Barroso MD [address] [place] [address] PCP - General Family Medicine 09/23/23 Selina Richmond NP [address] [place] [address] Nurse Practitioner Family Medicine 09/23/23 Reason for Visit (unrecogniz ed section and content) Reason Onset Date Comments Med Refill 11/20/2023 Reason Comments Med Refill Reason Onset Date Comments Med Refill 12/09/2023 Reason Comments Follow-up 2mo, pt denies any i ssues/concerns Reason Onset Date Comments Med Refill 03/02/2024 Reason Onset Date Comments Med Refill 03/04/2024 Reason Comments Diabetes FOR RECORDS PERTAINING TO PATIENTS WHO ARE [...] BE BASED ON THE PRIMARY CLINICAL RECORDS. [employer] provides no warranty or guarantee of the accuracy or completeness of information in this document.
[2024-04-28 13:38] LABS: Alanine Aminotransferase 40 U/L (16-63); Albumin Globulin Ratio 1.2; Albumin Level 4.1 g/dL (3.4-5.0); Alkaline Phosphatase 78 U/L (46-116); Anion Gap 12.6; Aspartate Amino Transferase 21 U/L (15-37); BUN Creatinine Ratio 15.5; Bilirubin Total 1.3 mg/dL (0.2-1.0); Calcium 9.5 mg/dL (8.5-10.1); Chloride 102 mmol/L (98-107); Cholesterol 99 mg/dL (<=200); Estimated GFR (African America >60 (>=60 mL/min/1.73m^2); Estimated GFR (Non-African Ame >60 (>=60 mL/min/1.73m^2); Globulin 3.3 g/dL; Glucose 131 mg/dL (74-106); HDL Cholesterol 49 mg/dL (40-60); Potassium 3.6 mmol/L (3.5-5.1); Sodium 141 mmol/L (136-145); Total Protein 7.4 g/dL (6.4-8.2); Triglycerides 55 mg/dL (<=150)
[2024-04-28 13:59] LABS: Prostate Specific Antigen Scrn 2.36 ng/mL (<=4.00)
[2024-04-28 14:26] LABS: Bilirubin Urine NEGATIVE (NEGATIVE); Blood Urine NEGATIVE (NEGATIVE); Clarity Urine CLEAR (CLEAR); Color Urine YELLOW (YELLOW); Glucose Urine UA NEGATIVE (NEGATIVE); Ketones Urine NEGATIVE (NEGATIVE); Leukocyte Esterase Urine NEGATIVE (NEGATIVE); Nitrite Urine NEGATIVE (NEGATIVE); Protein Urine NEGATIVE (NEG/TRACE); Specific Gravity Urine 1.015 (1.005-1.025); Urobilinogen Urine 0.2 EU/dL (0.2-1.0); pH Urine 5.5 (5.0-9.0)
[2024-04-28 14:33] LABS: Microalbumin Urine Random <1.3 mg/dL (<=30.0)
[2024-04-28 15:13] LABS: Urine Microscopic Indicated NO
== END 2024-04-28 12:37 | disposition home or self-care (01) ==
LOC: LAB 12:37
PROVIDERS: PCP Nurse Practitioner; Visit Provider Nurse Practitioner
DX: Z00.00 Encounter for general adult medical examination without abnormal findings (principal)
CPT/HCPCS: 36415; 80053; 80061; 81003; 82043; 82570; G0103

== ENCOUNTER 2024-05-08 10:49 | Outpatient (OUT) | payer OTHER, SELFPAY ==
--- OUTSIDE RECORDS SUMMARY | 2024-05-08 11:10 | XMS_ITS | CCD ---
Author Organization [facility] Care Team Providers Care Business Editor Name Role Phone FAWWAD, WOO H Consulting [...] Provider Shaikh Sosa MD Primary Care Provider [phone] Brenton Barroso MD Primary Care Provider Selina Richmond NP Unavailable Yi LOPEZ, Selina Unavailable [phone] ANIKA MONZON Attending Unavailable SELINA RICHMOND Attending UnavailDUSTY Blank Attending Unavailable SHAIKH SOSA Attending Unavailable LUDWINWADean, Attending Unavailable Anika Monzon NP Unavailable Allergies Allergy Classification Reported Allergen(s) Allergy Type Date of Onset Reaction(s) Facility (15 sources) Penicillins Drug Allergy 02-06-2023 Diarrhea [facility] [...] aspirin 81 mg delayed release oral tablet (15 sources) Platelet Aggregation Inhibitor, Nonsteroidal Anti-inflammatory Drug take 1 tablet by mouth in the morning aspirin 81 MG EC tablet Take 1 tablet by mouth in the morning. Active atorvastatin 20 mg oral tablet (19 sources) HMG-CoA Reductase Inhibitor Start: take 1 [...] (Therapy completed) glipiZIDE 5 mg oral tablet (19 sources) Sulfonylurea Start: 05-28-2023 End: 07-15-2024 take [...] 12/05/2022 Active latanoprost 0.05 mg/ml ophthalmic solution (13 sources) Prostaglandin Analog Start: 09-19-2023 latanoprost (Xalatan) 0.005 % ophthalmic solution 09/19/2023 Active losartan potassium 100 mg oral tablet (19 sources) Angiotensin 2 Receptor Jozef Start: 08-12-2023 End: 07-15-2024 take 1 tablet by mouth once daily losartan (Cozaar) 100 MG tablet Indications: Stage 2 hypertension (CMS/HCC) Take 1 tablet (100 mg) by mouth Daily 90 tablet 1 04/16/2024 07/15/2024 Active metFORMIN hydrochloride 1000 mg oral tablet (19 sources) Biguanide Start: 06-11-2023 End: 10-13-2024 take [...] per week 03/14/2024 Active polyethylene glycol 3350 61396 mg powder for oral solution (11 sources) [...] (Ozempic, 1 MG/DOSE,) 4 MG/3ML solution pen-injector (3 sources) Start: 04-16-2024 End: 07-09-2024 inject 1 [...] conditions (not mental disorders or infectious disease) (6 sources) Patient encounter status; Translations: [Encounter for screening for malignant neoplasm of prostate] Onset: 04-16-2024 04-16-2024 Episodic Past or Other Problems Problem Classification Problem Date Documented Da te Episodic/Chronic Deficiency and other anemia (16 sources) Normocytic anemia; Translations: [Anemia, unspecified] Onset: 08-12-2023 08-14-2023 Episodic Fluid and electrolyte disorders (14 sources) Hypokalemia; Translations: [Hypokalemia] Onset: 05-08-2023 05-08-2023 Episodic Results Test Name Value Interpretation Reference Range Facility ALL LIPID PROFILE (FASTING)o n 04-28-[address]24 [facility] Comment on above: 3.3 - 4.4 LOW RISK 4.4 - 7.1 AVERAGE RISK 7.1 - 11.0 MODERATE RISK >11.0 HIGH RISK Cholesterol [Mass/Vol] 99 mg/dL NINF - 200 mg/dL [facility] Cholesterol in HDL [Mass/Vol] 49 mg/dL 40 - 60 mg/dL [facility] Comment on above: > or =60 mg/dl - LOW CARDIOVASCULAR RISK <40 mg/dl - HIGH CARDIOVASCULAR RISK Magnesium [Mass/Vol] 39 mg/dL [facility] Comment on above: <100 mg/dl OPTIMAL 100-129 mg/dl NEAR OR ABOVE OPTIMAL 130-159 mg/dl BORDERLINE HIGH 160-189 mg/dl HIGH >190 mg/dl VERY HIGH Magnesium [Mass/Vol] 11 mg/dL [facility] Triglyceride [Mass/Vol] 55 mg/dL NINF - 150 mg/dL [facility] CMP (CMP) (FOR REMOTE FH C USE)on 04-28-2024 Albumin [Mass/Vol] 4.1 g/dL 3.4 - 5.0 g/dL [facility] ALBUMIN GLOBULIN RATIO 1.2 [facility] ALP [Catalytic activity/Vol] 78 U/L 46 - 116 U/L [facility] ALT [Catalytic activity/Vol] 40 U/L 16 - 63 U/L [facility] Anion gap [Moles/Vol] 12.6 mmol/L NO [facility] AST [Catalytic activity/Vol] 21 U/L 15 - 37 U/L [facility] Bilirubin [Mass/Vol] 1.3 mg/dL High 0.2 - 1 .0 mg/dL [facility] Calcium [Mass/Vol] 9.5 mg/dL 8.5 - 10. 1 mg/dL [facility] Chloride [Moles/Vol] 102 mmol/L 98 - 10 7 mmol/L [facility] CO2 [Moles/Vol] 30 mmol/L 21.0 - 32.0 mmol/L [facility] Creatinine [Mass/Vol] 0.84 mg/dL 0.70 - 1.30 mg/dL [facility] GFR/1.73 sq M.predicted CKD-EPI (S/P/Bld) [Vol rate/Area] >60 >=60 mL/min/1.73m 2 [facility] Globulin (S) [Mass/Vol] 3.3 g/dL [facility] Glucose [Mass/Vol] 131 mg/dL High 74 - 106 mg/dL NO [facility] Interpretation and review of laboratory results Abnormal [facility] Potassium [Moles/Vol] 3.6 mmol/L 3.5 - 5.1 mmol/L [facility] Protein [Mass/Vol] 7.4 g/dL 6.4 - 8.2 g/dL NO [facility] Sodium [Moles/Vol] 141 mmol/L 136 - 145 mmol/L [facility] TBH EGFR-NON AF ANGOLAN >60 >=60 mL/min/1.73m 2 [facility] Urea nitrogen [Mass/Vol] 13 mg/dL 7.0 - 18.0 mg/dL [facility] Urea nitrogen/Creatinine [Mass ratio] 15.5 mg/mg [facility] No Panel Informationon 04-28 [facility] [employer] HbA1c (Bld) [Mass fraction]o n 04-16-2024 Interpretation and review of laboratory results Abnormal [facility] [employer] Laboratory - Hematology and Cell countson 04-16-2024 HbA1c (Bld) [Mass fraction] 6.30 % [facility] GLYCOHEMOGLOBIN A1Con 2022 ADA RECOMMENDATION SEE BELOW Normal [facility] Comment on above: Result Comment: ADA RECOMMENDED LIMIT 4.0 - 6.0 ADA THERAPEUTIC TARGET < 7.0 ACTION SUGGESTED > 7.0 Performed By: #### A 1C #### [facility] [address] [place] [address] Dr. Latisha Lindo Glucose [Mass/Vol] 194 mg/dL Normal [facility] Comment on above: Performed By: #### A 1C #### [facility] [address] [place] [address] Dr. Latisha Lindo HbA1c (Bld) [Mass fraction] 8.4 % Critically high 4.5-6.2 [facility] Comment on above: Performed By: #### A 1C #### [facility] [address] [place] [address] Dr. Latisha Lindo CBC AUTO DIFFon 09-21-2021 BASO # 0.0 103/ul Normal 0.0-0.1 [facility] Comment on above: Performed By: #### C BC #### [facility] [address] [place] [address] Dr. Latisha Lindo Basophils/100 WBC (Bld) 0.6 % Normal 0.2-2.0 [facility] Comment on above: Performed By: #### C BC #### [facility] [address] [place] [address] Dr. Latisha Lindo EO # 0.2 103/ul Normal 0.0-0.7 [facility] Comment on above: Performed By: #### C BC #### [facility] [address] [place] [address] Dr. Latisha Lindo Eosinophils/100 WBC (Bld) 3.1 % Normal 0.9-7.0 [facility] Comment on above: Performed By: #### C BC #### [facility] [address] [place] [address] Dr. Latisha Lindo Erythrocyte distribution width (RBC) [Ratio] 13.1 % Normal 11.0-15.0 [facility] Comment on above: Performed By: #### C BC #### [facility] [address] [place] [address] Dr. Latisha Lindo Hematocrit (Bld) [Volume fraction] 40.8 % Critically low 42.0-54.0 [facility] Comment on above: Performed By: #### C BC #### [facility] [address] [place] [address] Dr. Latisha Lindo Hemoglobin (Bld) [Mass/Vol] 13.4 g/dL Critically low 14.0-18.0 [facility] Comment on above: Performed By: #### C BC #### [facility] [address] [place] [address] Dr. Latisha Lindo IG # 0.02 10e3/ul Normal 0.00-0.03 [facility] Comment on above: Performed By: #### C BC #### [facility] [address] [place] [address] Dr. Latisha Lindo IG % 0.3 % Normal 0.0-0.5 [facility] Comment on above: Performed By: #### C BC #### [facility] [address] [place] [address] Dr. Latisha Lindo LYMPH # 1.5 103/ul Normal 1.2-3.8 [facility] Comment on above: Performed By: #### C BC #### [facility] [address] [place] [address] Dr. Latisha Lindo Lymphocytes/100 WBC (Bld) 22.3 % Normal 20.5-60.0 [facility] Comment on above: Performed By: #### C BC #### [facility] [address] [place] [address] Dr. Latisha Lindo MANUAL DIFF REQ NO Normal [facility] Comment on above: Performed By: #### C BC #### [facility] [address] [place] [address] Dr. Latisha Lindo MCH (RBC) [Entitic mass] 28.8 pg Normal 25.9-34.0 [facility] Comment on above: Performed By: #### C BC #### [facility] [address] [place] [address] Dr. Latisha Lindo MCHC (RBC) [Mass/Vol] 32.8 g/dL Normal 29.9-35.2 [facility] Comment on above: Performed By: #### C BC #### [facility] [address] [address] [address] Latisha Lindo MCV (RBC) [Entitic vol] 87.6 fL Normal 80.0-94.0 [facility] Comment on above: Performed By: #### C BC #### [facility] [address] [address] [address] Latisha Lindo MONO # 0.6 103/ul Normal 0.3-0.8 [facility] Comment on above: Performed By: #### C BC #### [facility] [address] [address] [address] Latisha Lindo Monocytes/100 WBC (Bld) 8.3 % Normal 1.7-12.0 [facility] Comment on above: Performed By: #### C BC #### [facility] [address] [address] [address] Latisha Lindo NEUT # 4.4 103/ul Normal 1.4-6.5 [facility] Comment on above: Performed By: #### C BC #### [facility] [address] [address] [address] Latisha Lindo Neutrophils/100 WBC (Bld) 65.4 % Normal 43.0-75.0 [facility] Comment on above: Performed By: #### C BC #### [facility] [address] [address] [address] Latisha Lindo Platelet mean volume (Bld) [Entitic vol] 9.7 fL Normal 9.5-13.5 [facility] Comment on above: Performed By: #### C BC #### [facility] [address] [address] [address] Latisha Lindo PLT 253 103/ul Normal 150-450 [facility] Comment on above: Performed By: #### C BC #### [facility] [address] [address] [address] Latisha Lindo RBC 4.66 106/ul Critically low 4.70-6.10 [facility] Comment on above: Performed By: #### C BC #### [facility] [address] [place] [address] Dr. Latisha Lindo WBC 6.8 103/ul Normal 4.0-11.0 [facility] Comment on above: Performed By: #### C BC #### [facility] [address] [address] [address] Latisha Lindo GLYCOHEMOGLOBIN A1Con 2021 ADA RECOMMENDATION SEE BELOW Normal [facility] Comment on above: Result Comment: ADA RECOMMENDED LIMIT 4.0 - 6.0 ADA THERAPEUTIC TARGET < 7.0 ACTION SUGGESTED > 7.0 Performed By: #### A 1C #### [facility] [address] [place] [address] Dr. Latisha Lindo Glucose [Mass/Vol] 189 mg/dL Normal [facility] Comment on above: Performed By: #### A 1C #### [facility] [address] [place] [address] Dr. Latisha Lindo HbA1c (Bld) [Mass fraction] 8.2 % Critically high 4.5-6.2 [facility] Comment on above: Performed By: #### A 1C #### [facility] [address] [place] [address] Dr. Latisha Lindo LIPID PROFILEon 09-21-2021 CHOL-HDL RATIO NORM SEE BELOW Normal [facility] Comment on above: Result Comment: 3.3 - 4.4 LOW RISK 4.4 - 7.1 AVERAGE RISK 7.1 - 11.0 MODERATE RISK >11.0 HIGH RISK Performed By: #### L IPID, BMP #### [facility] [address] [place] [address] Dr. Latisha Lindo Cholesterol [Mass/Vol] 126 mg/dL Normal <=200 [facility] Comment on above: Performed By: #### L IPID, BMP #### [facility] [address] [place] [address] Dr. Latisha Lindo Cholesterol in HDL [Mass/Vol] 54 mg/dL Normal 40-60 [facility] Comment on above: Performed By: #### L IPID, BMP #### [facility] [address] [address] [address] Latisha Lindo Cholesterol in LDL [Mass/Vol] 58.2 mg/dL Normal [facility] Comment on above: Performed By: #### L IPID, BMP #### [facility] [address] [place] [address] Dr. Latisha Lindo Cholesterol.total/Cho lesterol in HDL [Mass ratio] 2.3 {ratio} Normal [facility] Comment on above: Performed By: #### L IPID, BMP #### [facility] [address] [place] [address] Dr. Latisha Lindo HDL NORMAL > or = 60 mg/dl - LOW CARDIOVASCULAR RISK <40 mg/dl - HIGH CARDIOVASCULAR RISK Normal [facility] Comment on above: Performed By: #### L IPID, BMP #### [facility] [address] [place] [address] Dr. Latisha Lindo LDL CALC NORMAL SEE BELOW Normal [facility] Comment on above: Result Comment: <100 mg/dl OPTIMAL 100 - 129 mg/dl NEAR OR ABOVE OPTIMAL 130 - 159 mg/dl BORDERLINE HIGH 160 - 189 mg/dl HIGH >190 mg/dl VERY HIGH Performed By: #### L IPID, BMP #### [facility] [address] [place] [address] Dr. Latisha Lindo Triglyceride [Mass/Vol] 69 mg/dL Normal <=150 [facility] Comment on above: Performed By: #### L IPID, BMP #### [facility] [address] [place] [address] Dr. Latisha Lindo VLDL CALC 13.8 mg/dL Normal [facility] Comment on above: Performed By: #### L IPID, BMP #### [facility] [address] [address] [address] Latisha Lindo PROF CHEM 8 (BAS METB)on Anion gap [Moles/Vol] 16.1 mmol/L Normal [facility] Comment on above: Performed By: #### L IPID, BMP #### [facility] [address] [place] [address] Dr. Latisha Lindo Calcium [Mass/Vol] 9.8 mg/dL Normal 8.5-10.1 [facility] Comment on above: Performed By: #### L IPID, BMP #### [facility] [address] [place] [address] Dr. Latisha Lindo Chloride [Moles/Vol] 103 mmol/L Normal 98-107 [facility] Comment on above: Performed By: #### L IPID, BMP #### [facility] [address] [place] [address] Dr. Latisha Lindo CO2 [Moles/Vol] 25.7 mmol/L Normal 21.0-32.0 [facility] Comment on above: Performed By: #### L IPID, BMP #### [facility] [address] [place] [address] Dr. Latisha Lindo Creatinine [Mass/Vol] 1.02 mg/dL Normal 0.70-1.30 [facility] Comment on above: Performed By: #### L IPID, BMP #### [facility] [address] [place] [address] Dr. Latisha Lindo EGFR-AF ANGOLAN >60 Normal >=60 [facility] Comment on above: Performed By: #### L IPID, BMP #### [facility] [address] [place] [address] Dr. Latisha Lindo EGFR-NON AF ANGOLAN >60 Normal >=60 [facility] Comment on above: Performed By: #### L IPID, BMP #### [facility] [address] [place] [address] Dr. Latisha Lindo Glucose [Mass/Vol] 179 mg/dL Critically high 74-106 [facility] Comment on above: Performed By: #### L IPID, BMP #### [facility] [address] [place] [address] Dr. Latisha Lindo Potassium [Moles/Vol] 3.8 mmol/L Normal 3.5-5.1 [facility] Comment on above: Performed By: #### L IPID, BMP #### [facility] [address] [place] [address] Dr. Latisha Lindo Sodium [Moles/Vol] 141 mmol/L Normal 136-145 [facility] Comment on above: Performed By: #### L IPID, BMP #### [facility] [address] [address] [address] Latisha Lindo Urea nitrogen [Mass/Vol] 21.0 mg/dL Critically high 7.0-18.0 [facility] Comment on above: Performed By: #### L IPID, BMP #### [facility] [address] [address] [address] Latisha Lindo Urea nitrogen/Creatinine [Mass ratio] 20.6 mg/mg Normal [facility] Comment on above: Performed By: #### L IPID, BMP #### [facility] [address] [place] [address] Dr. Latisha Lindo GLYCOHEMOGLOBIN A1Con 2021 ADA RECOMMENDATION ADA THERAPEUTIC TARGET 6.0 - 7.0 ACTION SUGGESTED > 7.0 Normal [facility] Comment on above: Performed By: #### A 1C #### [facility] [address] [address] [address] Latisha Lindo Glucose [Mass/Vol] 171 mg/dL Normal [facility] Comment on above: Performed By: #### A 1C #### [facility] [address] [place] [address] Dr. Latisha Lindo HbA1c (Bld) [Mass fraction] 7.6 % Critically high <=6.0 [facility] Comment on above: Performed By: #### A 1C #### [facility] [address] [place] [address] Dr. Latisha Lindo Colonoscopy w/ or w/o biopsy on 05-25-2013 Transverse colon polyp Rectal polyp Otherwise normal [facility] This order was created through External Result Entry [facility] Vital Signs Date Time Vital Sign Value Performing Clinician Ramiro berumen 04-16-2024 09:56-0500 Diastolic blood pressure 82 mm[Hg] Anika Monzon ICT DEVELOPER Work Phone: [facility] 04-16-2024 09:56-0500 Systolic blood pressure 132 mm[Hg] Anika Monzon ICT DEVELOPER Work Phone: [facility] 04-16-2024 09:23-0500 Body mass index (BMI) [Ratio] 28.52 kg/m2 Anika Monzon ICT DEVELOPER Work Phone: [facility] 04-16-2024 09:23-0500 Body temperature 98.49 [degF] Anika Angelz ICT DEVELOPER Work Phone: [facility] 04-16-2024 09:23-0500 Body weight 92.76 kg Anika Monzon ICT DEVELOPER Work Phone: [facility] 04-16-2024 09:23-0500 Heart rate 66 /min Anika Monzon ICT DEVELOPER Work Phone: [facility] 04-16-2024 09:23-0500 Respiratory rate 18 /min Anika Monzon ICT DEVELOPER Work Phone: [facility] 04-16-2024 09:23-0500 SaO2% (BldA) [Mass fraction] 99 % Anika Monzon ICT DEVELOPER Work Phone: [facility] 10-15-2023 09:36-0400 Body height 180.3 cm Selina Newtonpatrick ICT DEVELOPER Work Phone: [facility] 10-15-2023 09:36-0400 Body mass index (BMI) [Ratio] 28.31 kg/m2 Selina Richmond ICT DEVELOPER Work Phone: [facility] 10-15-2023 09:36-0400 Body temperature 96.49 [degF] Selina Richmond ICT DEVELOPER Work Phone: [facility] 10-15-2023 09:36-0400 Body weight 92.08 kg Selina Richmond ICT DEVELOPER Work Phone: [facility] 10-15-2023 09:36-0400 Diastolic blood pressure 80 mm[Hg] Selina Richmond ICT DEVELOPER Work Phone: [facility] 10-15-2023 09:36-0400 Heart rate 71 /min Selina Agk ICT DEVELOPER Work Phone: [facility] Comment on above: 98% O2 10-15-2023 09:36-0400 Systolic blood pressure 120 mm[Hg] Selina Agk ICT DEVELOPER Work Phone: [facility] Encounters Encounter Date Encounter Type Care Provider Facility Start: 04-28-2024 End: 04-28-2024 [facility] Result Encounter Anika Eckertjermaine ICT DEVELOPER Work Phone: [facility] External Department Unsolicited Start: 04-28-2024 End: 04-28-2024 [facility] Result Encounter Anika Nicolás ICT DEVELOPER Work Phone: [facility] External Department Unsolicited Start: 04-16-2024 End: 04-16-2024 Bamboo flowsheet Anika Bacajose ICT DEVELOPER Work Phone: [facility] Start: 04-16-2024 End: 04-16-2024 Bamboo flowsheet Anika Bacajose ICT DEVELOPER Work Phone: [facility] Start: 04-16-2024 End: 04-16-2024 Patient encounter status Anika Bacajose ICT DEVELOPER Work Phone: [facility] Start: 04-16-2024 End: 04-16-2024 Periodic preventive med est patient 40-64yrs Anika Bacajose ICT DEVELOPER Work Phone: [facility] Comment on above: Wellness examination (Primary Dx); HTN (hypertension), benign (CMS/HCC); Type 2 diabetes mellitus without complication, without long-term current use of insulin (CMS/HCC); Mixed hyperlipidemia (CMS/HCC); Prostate cancer screening; Stage 2 hypertension (CMS/HCC); Type 2 diabetes mellitus without complications (CMS/HCC); Essential (primary) hypertension (CMS/HCC) Start: 04-16-2024 End: 04-16-2024 ambulatory ANIKA NICOLÁS Not Available Start: 03-04-2024 End: 03-04-2024 Refill Selina Lancastertrick ICT DEVELOPER Work Phone: [facility] Comment on above: Stage 2 hypertension (CMS/HCC) Start: 03-02-2024 End: 03-02-2024 Refill Selina Richmond ICT DEVELOPER Work Phone: [facility] Comment on above: Type 2 diabetes jorje itus without complication, without long- term current use of insulin (CMS/HCC) Essential (primary) hypertension (CMS/HCC) Type 2 diabetes jorje itus without complication, without long-term current use of insulin (CMS/HCC); Type 2 diabetes mellitus without complications (CMS/HCC) Start: 12-09-2023 End: 12-10-2023 [facility] Comment on above: Type 2 diabetes jorje itus without complications (CMS/HCC); Type 2 diabetes mellitus without complication, without long-term current use of insulin (CMS/HCC) Start: 12-03-2023 End: 12-04-2023 Refill Selina Lancastertrick ICT DEVELOPER Work Phone: [facility] Comment on above: Stage 2 hypertension (CMS/HCC) Start: 11-20-2023 End: 11-20-2023 [facility] Tuttle [facility] Comment on above: Stage 2 hypertension (CMS/HCC) Start: 10-15-2023 End: 10-15-2023 Bamboo flowsheet Selina Langzpatrick ICT DEVELOPER Work Phone: [facility] Start: 10-15-2023 End: 10-15-2023 Bamboo flowsheet Selina Richmond ICT DEVELOPER Work Phone: [facility] Start: 10-15-2023 End: 10-15-2023 Office outpatient visit 25 minutes Selina Agk ICT DEVELOPER Work Phone: [facility] Comment on above: Mixed hyperlipidemia (CMS/HCC) (Primary Dx); Normocytic anemia; Type 2 diabetes mellitus without complication, without long-term current use of insulin (CMS/HCC); HTN (hypertension), benign (CMS/HCC) Start: 10-15-2023 End: 10-15-2023 ambulatory SELINA RICHMOND Not Available Start: 08-21-2023 End: 08-21-2023 ambulatory DUSTY COLEMAN Not Available Start: 08-12-2023 End: 08-12-2023 ambulatory FAWWAD Not Available Start: 05-08-2023 End: 05-08-2023 ambulatory FAWWAD Not Available Start: 04-03-2023 Orders Only Shaikh Sheila RODRIGUEZ Work Phone: [facility] [facility] Comment on above: Type 2 diabetes jorje itus without complication, without long- term current use of insulin (CMS/[facility]) (Primary Dx) Start: 02-06-2023 Patient encounter status Shaik ailyn Sosa MD Work Phone: [facility] Start: 03-13-2022 End: 03-14-2022 ambulatory WOO H FAWWAD Facility:H1 Start: 09-21-2021 End: 09-22-2021 ambulatory WOO H FAWWAD Facility:H1 Start: 05-29-2021 End: 05-30-2021 ambulatory WOO H FAWWAD Facility:H1 Start: 05-25-2013 Conversion Encounter Joshua guerrero MD Work Phone: [facility] Start: 05-25-2013 Legacy Encounter Joshua martinez MD Work Phone: [facility] Procedures Date Procedure Procedure Detail Performing Clinician Start: 04-28-2024 ALL LIPID PROFILE (FASTING) Anika Monzon ICT DEVELOPER Work Phone: Start: 04-28-2024 [facility] CMP (CMP) (FOR R [facility] USE) Anika Monzon ICT DEVELOPER Work Phone: Start: 04-16-2024 Hemoglobin glycosyla fletcher a1c Anika Monzon ICT DEVELOPER Work Phone: Start: 09-17-2023 Colonoscopy Selina baldwin ICT DEVELOPER Work Phone: Start: 05-25-2013 COLONOSCOPY W/ OR W/ O BIOPSY Joshua Hsieh MD Work Phone: Plan of Treatment Date Care Activity Detail Author Start: 09-16-2033 Screening for malign ant neoplasm of colon [facility] Start: 03-03-2026 Glaucoma screening Diabetes: R etinopathy Screening [facility] Start: 10-14-2024 Hemoglobin A1c measurement Diabetes: Hemoglobin A1C [facility] Start: 08-01-2024 Urine screening for protein Diabetes: Urine Protein Screening [facility] Start: 07-14-2024 End: 07-14-2024 Patient encounter procedure 07/14/2024 9:40 AM EDT Office Visit [facility] [address] [place] [phone] Anika Monzon NP [address] [place] [phone] [facility] Start: 04-16-2024 End: 04-16-2025 Comprehensive metabolic 2000 panel - Serum or Plasma Comprehensive metabolic panel Lab Routine Wellness examination Expected: 04/16/2024 (Approximate), Expires: 04/16/2025 [facility] Comment on above: Expected: 04/16/2024 (Approximate), Expires: 04/16/2025 Start: 04-16-2024 End: 04-16-2025 Lipid 1996 panel - Serum or Plasma Lipid panel Lab Routine Wellness examination Expected: 04/16/2024 (Approximate), Expires: 04/16/2025 [facility] Work Phone: Comment on above: Expected: 04/16/2024 (Approximate), Expires: 04/16/2025 Start: 04-16-2024 End: 04-16-2025 Microalbumin/Creatinine panel in random Urine Microalbumin / creatinine, urine ratio Lab Routine Wellness examination Expected: 04/16/2024 (Approximate), Expires: 04/16/2025 [facility] Comment on above: Expected: 04/16/2024 (Approximate), Expires: 04/16/2025 Start: 04-16-2024 End: 04-16-2025 Prostate specific Ag [Mass/volume] in Serum or Plasma PSA Lab Routine Wellness examination Expected: 04/16/2024 (Approximate), Expires: 04/16/2025 [facility] Comment on above: Expected: 04/16/2024 (Approximate), Expires: 04/16/2025 Start: 04-16-2024 End: 04-16-2025 Urinalysis complete panel - Urine Urinalysis with reflex microscopic (clean catch) Lab Routine Wellness examination Expected: 04/16/2024 (Approximate), Expires: 04/16/2025 [facility] Comment on above: Expected: 04/16/2024 (Approximate), Expires: 04/16/2025 Start: 04-16-2024 End: 04-16-2024 Patient encounter procedure [facility] Comment on above: HTN (hypertension), benign (CMS/HCC) (Primary Dx); Type 2 diabetes mellitus without complication, without long-term current use of insulin (CMS/HCC); Mixed hyperlipidemia (CMS/HCC); Prostate cancer screening; Wellness examination Start: 03-21-2024 Glaucoma screening Diabetes: R etinopathy Screening [facility] Start: 02-01-2024 Hemoglobin A1c measurement Diabetes: Hemoglobin A1C [facility] Start: 12-20-2023 Screening for malign ant neoplasm of colon [facility] Start: 10-26-2023 Urine screening for protein Diabetes: Urine Protein Screening [facility] Start: 10-20-2023 Influenza vaccination Influenza Vacc ine (#1) [facility] Start: 10-15-2023 End: 10-15-2023 Patient encounter procedure 10/15/2023 9:30 AM EDT Office Visit [facility] [address] [place] [phone] Selina Richmond NP [address] [place] [address] Arrived [facility] Comment on above: Arrived Start: 05-08-2023 End: 05-08-2023 Patient encounter procedure 05/08/2023 10:00 AM EDT Office Visit [facility] [address] [place] [address] Shaikh Sosa MD [address] [place] [place] [address] [facility] Start: 05-07-2023 Hemoglobin A1c measurement Diabetes: Hemoglobin A1C [facility] Start: 1960 Screening for malign ant neoplasm of colon [facility] Healthcare Immunizations Immunization Date Immunization Notes Care Provider [facility] 02-04-2024 influenza, seasonal, injectable, preservative free Anika Aichholz ICT DEVELOPER Work Phone: [facility] 02-04-2024 influenza virus vacc ine, unspecified formulation Anika Aichholz ICT DEVELOPER Work Phone: [facility] 01-27-2023 influenza, injectabl e, quadrivalent, preservative free Selina Richmond ICT DEVELOPER Work Phone: [facility] 01-27-2023 influenza virus vacc ine, unspecified formulation Selina Richmond ICT DEVELOPER Work Phone: [facility] 01-22-2019 influenza, injectabl e, quadrivalent, preservative free Shaikh Sheila RODRIGUEZ Work Phone: [facility] 01-22-2019 zoster vaccine recombinant Shaikh Sheila RODRIGUEZ Work Phone: [facility] 12-18-2017 influenza virus vacc ine, unspecified formulation Selina Richmond ICT DEVELOPER Work Phone: [facility] 12-18-2017 influenza, injectabl e, quadrivalent, contains preservative Shaikh Sheila RODRIGUEZ Work Phone: [facility] 12-06-2016 influenza virus vacc ine, unspecified formulation Selina Richmond ICT DEVELOPER Work Phone: [facility] 12-06-2016 influenza, injectabl e, quadrivalent, contains preservative Shaikh Sheila RODRIGUEZ Work Phone: [facility] 12-07-2015 influenza virus vacc ine, unspecified formulation Selina Richmond ICT DEVELOPER Work Phone: [facility] 12-07-2015 influenza, injectabl e, quadrivalent, contains preservative Shaikh Sheila RODRIGUEZ Work Phone: [facility] 05-05-2015 tetanus toxoid, redu geraldine diphtheria toxoid, and acellular pertussis vaccine, adsorbed Shaikh Sheila RODRIGUEZ Work Phone: [facility] 11-05-2014 influenza virus vacc ine, unspecified formulation Selina Richmond ICT DEVELOPER Work Phone: [facility] 11-05-2014 influenza virus vacc ine, whole virus Shaikh Sheila RODRIGUEZ Work Phone: [facility] 12-10-2013 pneumococcal polysaccharide vaccine, 23 valent Shaikh Sheila RODRIGUEZ Work Phone: [facility] Payers Date Payer Category Payer Private Health Insurance TYLER BLUM [id number] 2022 Unknown CHADD LFORENTINO LUDLOW [employer] [facility] [id number] 2022-Present [phone] [place] [id number] 2022 Unknown [id number] 1960 Unknown [id number] 1960 Unknown [id number] 1960 Unknown [id number] 1960 Unknown [id number] 1960 Unknown [id number] 1960 Unknown [id number] 1960 Unknown [id number] 1960 Unknown [id number] 1959 Unknown [id number] Social History Date Type Detail Facility Tobacco smoking stat [facility] Tobacco smoking consumption unknown [facility] Start: 1960 Sex Assigned At Not on file [facility] Start: 02-04-2023 End: 04-10-2024 Gender identity Not on file [facility] Start: 02-06-2023 Tobacco smoking stat [facility] Never smoked tobacco [facility] Start: 02-06-2023 [...] each by Other route in the morning. [id number] Start: 03-22-2022 1 each by Other route in the morning. [id number] Start: 01-26-2023 1 each by Other route Daily [id number] Start: 06-18-2023 End: 01-04-2024 Clinical Notes 10-15-2023 to 04-16-2024 LIVE COULTER - 04/16/2024 9:20 AM Fabby Monzon NP - 04/16/2024 9:20 AM ESTAnika Monzon NP - 04/16/2024 6:28 AM Fabby Monzon NP - 04/16/2024 6:25 AM ESTPatient Instructions Note [...] in the last year: none Specialist: dr fernandes Diabetes He presents for his follow-up diabetic [...] There is no history of kidney disease, CAD/[place], CVA or heart failure. SUBJECTIVE: MEDICATIONS: Current [...] detergent Allergic reaction to possibly a fabric cocoa bean cleaner. No new drugs or food involved [...] complication, without long-term current use of insulin ([facility]) Check blood sugars daily, notify if <70 [...] amlodipine, losartan documented in this encounter [facility] 04-16-2024 Instructions Anika Monzon NP - 04/16/2024 9:20 AM EST No med dose changes Keep up the good work Labs: fasting 8 hours documented in this encounter [facility] 11-20-2023 Telephone encount er Note Pt called needing a refill on his Lozartan 100 mg tablet. [facility] [place]. SERENA:10/15/2023 NOV: [facility] 11-20-2023 Miscellaneous Notes Formattin g of this note might be different from the original. Pt called needing a refill on his Lozartan 100 mg tablet. Sent to [facility] [place]. SERENA:10/15/2023 NOV: documented in this encounter [facility] 10-15-2023 History of Presen t illness Narrative [...] ALBUMIN GLOBULIN RATIO 1.1 1.1 Resulting Agency [facility] DMII: Component Ref Range & Units 2 mo ago 5 mo ago GLYCOHEMOGLOBIN A1C 4.5 - 6.2 % 6.1 6.8 High CM Comment: ADA RECOMMENDED LIMIT 4.0 - 6.0 ADA THERAPEUTIC TARGET < 7.0 ACTION SUGGESTED > 7.0 ESTIMATED AVERAGE GLUCOSE mg/dL 128 148 Resulting Agency [facility] Most recent labs: hemoglobin A1C 6.1 Average [...] for now. documented in this encounter [facility] 10-15-2023 Instructions Selina Richmond NP - 10/15/2023 9:30 [...] and simple sugars. documented in this encounter [facility] Evaluation note Diagnosis Type 2 diabetes mellitus without complication, without long-term current use of insulin ([facility]/HCC)- Primary documented in this encounter [facility] HealthcareEvaluation note* Diagnosis Stage 2 hypertension (CMS/HCC) [facility] 2 hypertension (CMS/HCC) documented in this encounter [facility] HealthcareEvaluation note* Diagnosis Type 2 diabetes mellitus without complication, without long-term current use of insulin (CMS/HCC)- Primary Stage 2 hypertension (CMS/HCC) Mixed hyperlipidemia (CMS/HCC) Mixed hyperlipidemia Wellness examination Hypokalemia- Primary Hypopotassemia Stage 2 hypertension (CMS/HCC) Type 2 diabetes mellitus without complication, without long-term current use of insulin ([facility]/HCC) Mixed hyperlipidemia ([facility]/HCC) Mixed hyperlipidemia Hypokalemia- Primary Hypopotassemia Microcytic anemia Unspecified iron deficiency anemia Stage 2 hypertension (CMS/HCC) Normocytic anemia- Primary Unspecified anemia Mixed hyperlipidemia (CMS/HCC)- Primary Mixed hyperlipidemia Normocytic anemia Unspecified anemia Type 2 diabetes mellitus without complication, without long-term current use of insulin ([facility]/HCC) HTN (hypertension), benign ([facility]/HCC) Essential hypertension, benign Type 2 diabetes mellitus without complications ([facility]/HCC) Type 2 diabetes mellitus without complication, without long-term current use of insulin ([facility]/HCC) documented in this encounter [facility] HealthcareEvaluation note* Diagnosis Mixed hyperlipidemia (CMS/HCC)- Primary Mixed hyperlipidemia Normocytic anemia Unspecified anemia Type 2 diabetes mellitus without complication, without long-term current use of insulin ([facility]) HTN (hypertension), benign ([facility]/HCC) Essential hypertension, benign documented in this encounter [facility] HealthcareEvaluation note* Diagnosis Type 2 diabetes mellitus without complication, without long-term current use of insulin ([facility]/HCC)- Primary Stage 2 hypertension (CMS/HCC) Mixed hyperlipidemia ([facility]/HCC) Mixed hyperlipidemia Wellness examination Hypokalemia- Primary Hypopotassemia Stage 2 hypertension (CMS/HCC) Type 2 diabetes mellitus without complication, without long-term current use of insulin ([facility]/HCC) Mixed hyperlipidemia ([facility]/HCC) Mixed hyperlipidemia Hypokalemia- Primary Hypopotassemia Microcytic anemia Unspecified iron deficiency anemia Stage 2 hypertension ([facility]/HCC) Normocytic anemia- Primary Unspecified anemia Mixed hyperlipidemia (CMS/HCC)- Primary Mixed hyperlipidemia Normocytic anemia Unspecified anemia Type 2 diabetes mellitus without complication, without long-term current use of insulin ([facility]/HCC) HTN (hypertension), benign ([facility]/HCC) Essential hypertension, benign Type 2 diabetes mellitus without complication, without long-term current use of insulin ([facility]/HCC) documented in this encounter [facility] HealthcareEvaluation note* Diagnosis Type 2 diabetes mellitus without complication, without long-term current use of insulin ([facility]/HCC)- Primary Stage 2 hypertension (CMS/HCC) Mixed hyperlipidemia ([facility]/HCC) Mixed hyperlipidemia Wellness examination Hypokalemia- Primary Hypopotassemia [...] complication, without long-term current use of insulin ([facility]/HCC) HTN (hypertension), benign (CMS/HCC) Essential hypertension, [...] complication, without long-term current use of insulin ([facility]/HCC) Mixed hyperlipidemia ([facility]/HCC) Mixed hyperlipidemia Hypokalemia- Primary Hypopotassemia Microcytic anemia Unspecified iron deficiency anemia Stage 2 hypertension (CMS/HCC) Normocytic anemia- Primary Unspecified anemia Mixed hyperlipidemia (CMS/HCC)- Primary Mixed hyperlipidemia Normocytic anemia Unspecified anemia Type 2 diabetes mellitus without complication, without long-term current use of insulin ([facility]/HCC) HTN (hypertension), benign (CMS/HCC) Essential hypertension, benign Type 2 diabetes mellitus without complication, without long-term current use of insulin ([facility]/HCC) Type 2 diabetes mellitus without complications (CMS/HCC) [...] DATE CREATED AUTHOR AUTHOR'S ORGANIZ ATION 04/18/2024 [facility] dical Specialists [facility] Care Teams (unrecognized sec tion and content) Business Editor Relationship Specialty Start Date End Date Joshua Hsieh MD [address] [place] [id number] PCP - General 10/12/15 04/19/22 Business Editor Relationship Specialty Start Date End Date Shaikh Sosa MD PCP - General Internal Medicine 08/24/22 Business Editor Relationship Specialty Start Date End Date Brenton Barroso MD [address] [place] [phone] PCP - General Family Medicine 09/23/23 Selina Richmond NP [address] [place] [phone] Nurse Practitioner Family Medicine 09/23/23 Business Editor Relationship Specialty Start Date End Date Brenton Barroso MD [address] [place] [phone] PCP - General Family Medicine 09/23/23 Selina Richmond NP [address] [place] [phone] Nurse Practitioner Family Medicine 09/23/23 Business Editor Relationship Specialty Start Date End Date Brenton Barroso MD [address] [place] [phone] PCP - General Family Medicine 09/23/23 Selina Richmond NP [address] [place] [address] Nurse Practitioner Family Medicine 09/23/23 Business Editor Relationship Specialty Start Date End Date Brenton Barroso MD [address] [place] [phone] PCP - General Family Medicine 09/23/23 Selina Richmond NP [address] [place] [address] Nurse Practitioner Family Medicine 09/23/23 Business Editor Relationship Specialty Start Date End Date Brenton Barroso MD [address] [place] [phone] PCP - General Family Medicine 09/23/23 Selina Richmond NP [address] [place] [address] Nurse Practitioner Family Medicine 09/23/23 Business Editor Relationship Specialty Start Date End Date Brenton Barroso MD [address] [place] [phone] PCP - General Family Medicine 09/23/23 Selina Richmond NP [address] [place] [address] Nurse Practitioner Family Medicine 09/23/23 Business Editor Relationship Specialty Start Date End Date Brenton Barroso MD [address] [place] [phone] PCP - General Family Medicine 09/23/23 Selina Richmond NP [address] [place] [address] Nurse Practitioner Family Medicine 09/23/23 Business Editor Relationship Specialty Start Date End Date Brenton Barroso MD [address] [place] [phone] PCP - General Family Medicine 09/23/23 Selina Richmond NP [address] [place] [phone] Nurse Practitioner Family Medicine 09/23/23 Business Editor Relationship Specialty Start Date End Date Brenton Barroso MD [address] [place] [phone] PCP - General Family Medicine 09/23/23 Selina Richmond NP [address] [place] [phone] Nurse Practitioner Family Medicine 09/23/23 Business Editor Relationship Specialty Start Date End Date Brenton Barroso MD [address] [place] [phone] PCP - General Family Medicine 09/23/23 Anika Monzon NP [address] [place] [phone] Nurse Practitioner Family Medicine 04/16/24 Reason for Visit (unrecogniz ed section and [...] BE BASED ON THE PRIMARY CLINICAL RECORDS. [facility] provides no warranty or guarantee of the accuracy or completeness of information in this document.
[2024-05-08 11:25] LABS: Basophils Percent Auto 0.5 % (0.2-2.0); Eosinophils Absolute Auto 0.2 10^3/uL (0.0-0.7); Eosinophils Percent Auto 3.6 % (0.9-7.0); Hematocrit 38.7 % (42.0-54.0); Hemoglobin 13.1 g/dL (14.0-18.0); Immature Granulocytes Abs Auto 0.04 10^3/uL (0.00-0.03); Immature Granulocytes Pct Auto 0.6 % (0.0-0.5); Lymphocytes Absolute Auto 1.3 10^3/uL (1.2-3.8); Lymphocytes Percent Auto 20.1 % (20.5-60.0); Mean Corpuscular HGB Conc 33.9 g/dL (29.9-35.2); Mean Corpuscular Hemoglobin 28.7 pg (25.9-34.0); Mean Corpuscular Volume 84.9 fL (80.0-94.0); Mean Platelet Volume 8.7 fL (9.5-13.5); Monocytes Absolute Auto 0.5 10^3/uL (0.3-0.8); Monocytes Percent Auto 8.1 % (1.7-12.0); Neutrophils Absolute Auto 4.2 10^3/uL (1.4-6.5); Neutrophils Percent Auto 67.1 % (43.0-75.0); Platelet Count 264 10^3/uL (150-450); Red Blood Count 4.56 10^6/uL (4.70-6.10); Red Cell Distribution Width 12.6 % (11.0-15.0); Reticulocyte Pct Auto 1.19 % (0.60-3.10); White Blood Count 6.3 10^3/uL (4.0-11.0)
[2024-05-08 11:50] LABS: BUN Creatinine Ratio 12.8; Calcium 9.3 mg/dL (8.5-10.1); Carbon Dioxide 26.7 mmol/L (21.0-32.0); Chloride 105 mmol/L (98-107); Estimated GFR (African America >60 (>=60 mL/min/1.73m^2); Estimated GFR (Non-African Ame >60 (>=60 mL/min/1.73m^2); Glucose 106 mg/dL (74-106); Potassium 3.7 mmol/L (3.5-5.1); Sodium 140 mmol/L (136-145)
[2024-05-08 11:57] LABS: Percent Iron Saturation 18.8 %
[2024-05-09 04:07] LABS: Vitamin B12 769 pg/mL (232-1245)
[2024-05-11 15:08] LABS: Hgb A 97.3 % (96.4-98.8); Hgb A2 2.7 % (1.8-3.2)
== END 2024-05-08 10:50 | disposition home or self-care (01) ==
LOC: LAB 10:58
PROVIDERS: PCP Nurse Practitioner; Visit Provider Internal Medicine Hematology & Oncology
DX: D64.9 Anemia, unspecified (principal)
CPT/HCPCS: 36415; 80048; 81257; 82607; 82728; 83020; 83540; 83550; 85025; 85045

== ENCOUNTER 2024-05-12 07:37 | Outpatient (RCR) | payer OTHER, SELFPAY ==
--- OUTSIDE RECORDS SUMMARY | 2024-05-12 07:42 | XMS_ITS | CCD ---
Author Organization [facility] Care Team Providers Care Zoo Veterinarian Name Role Phone FAWWAD, WOO H Consulting [...] Provider Shaikh Sosa MD Primary Care Provider [phone] Brenton Barroso MD Primary Care Provider Selina Richmond NP Unavailable Yi LOPEZ, Selina Unavailable ANIKA MONZON Attending Unavailable SELINA RICHMOND Attending UnavailDUSTY Blank Attending Unavailable SHAIKH SOSA Attending Unavailable SERAFINWWADean, Attending Unavailable Anika Monzon NP Unavailable Allergies [...] oral tablet (19 sources) Angiotensin 2 Receptor Jozfe Start: 08-12-2023 End: 07-15-2024 take 1 tablet [...] per week 03/14/2024 Active polyethylene glycol 3350 91718 mg powder for oral solution (11 sources) [...] (FASTING)o n 04-28-2024 [facility]OL [facility] Comment on above: 3.3 - 4.4 LOW RISK 4.4 - 7.1 AVERAGE RISK 7.1 - 11.0 MODERATE RISK >11.0 HIGH RISK Cholesterol [Mass/Vol] 99 mg/dL NINF - 200 mg/dL [facility] Cholesterol in HDL [Mass/Vol] 49 mg/dL 40 - 60 mg/dL [facility] Comment on above: > or =60 mg/dl - LOW CARDIOVASCULAR RISK <40 mg/dl - HIGH CARDIOVASCULAR RISK Magnesium [Mass/Vol] 39 mg/dL [facility] Comment on above: <100 mg/dl OPTIMAL 100-129 mg/dl NEAR OR ABOVE OPTIMAL 130-159 mg/dl BORDERLINE HIGH 160-189 mg/dl HIGH >190 mg/dl VERY HIGH Magnesium [Mass/Vol] 11 mg/dL [facility] Triglyceride [Mass/Vol] 55 mg/dL NINF - 150 mg/dL [facility] CMP (CMP) (FOR REMOTE [facility] C USE)on 04-28-2024 Albumin [Mass/Vol] 4.1 g/dL 3.4 - 5.0 g/dL [facility] ALBUMIN GLOBULIN RATIO 1.2 [facility] ALP [Catalytic activity/Vol] 78 U/L 46 - 116 U/L [facility] ALT [Catalytic activity/Vol] 40 U/L 16 - 63 U/L [facility] Anion gap [Moles/Vol] 12.6 mmol/L NO [facility] AST [Catalytic activity/Vol] 21 U/L 15 - 37 U/L [facility] Bilirubin [Mass/Vol] 1.3 mg/dL High 0.2 - 1 .0 mg/dL [facility] Calcium [Mass/Vol] 9.5 mg/dL 8.5 - 10. 1 mg/dL [facility] Chloride [Moles/Vol] 102 mmol/L 98 - 10 7 mmol/L [facility] CO2 [Moles/Vol] 30 mmol/L 21.0 - 32.0 mmol/L [facility] Creatinine [Mass/Vol] 0.84 mg/dL 0.70 - 1.30 mg/dL [facility] GFR/1.73 sq M.predicted CKD-EPI (S/P/Bld) [Vol rate/Area] >60 >=60 mL/min/1.73m 2 [facility] Globulin (S) [Mass/Vol] 3.3 g/dL [facility] Glucose [Mass/Vol] 131 mg/dL High 74 - 106 mg/dL NO [facility] Interpretation and review of laboratory results Abnormal [facility] Potassium [Moles/Vol] 3.6 mmol/L 3.5 - 5.1 mmol/L [facility] Protein [Mass/Vol] 7.4 g/dL 6.4 - 8.2 g/dL NO [facility] Sodium [Moles/Vol] 141 mmol/L 136 - 145 mmol/L [facility] TBH EGFR-NON AF MALTESE >60 >=60 mL/min/1.73m 2 [facility] Urea nitrogen [Mass/Vol] 13 mg/dL 7.0 - 18.0 mg/dL [facility] Urea nitrogen/Creatinine [Mass ratio] 15.5 mg/mg [facility] No Panel Informationon 04-28 [facility] HbA1c (Bld) [Mass fraction]o n 04-16-2024 Interpretation and review of laboratory results Abnormal [facility] Laboratory - Hematology and Cell countson 04-16-2024 HbA1c (Bld) [Mass fraction] 6.30 % [facility] GLYCOHEMOGLOBIN A1Con 2022 ADA RECOMMENDATION SEE BELOW Normal [facility] Comment on above: Result Comment: ADA RECOMMENDED LIMIT 4.0 - 6.0 ADA THERAPEUTIC TARGET < 7.0 ACTION SUGGESTED > 7.0 Performed By: #### A 1C #### [facility] [address] [place] [address] Dr. Latisha Lindo Glucose [Mass/Vol] 194 mg/dL Normal [facility] Comment on above: Performed By: #### A 1C #### [facility] [address] [place] [address] Dr. Latisha Lindo HbA1c (Bld) [Mass fraction] 8.4 % Critically high 4.5-6.2 [facility] Comment on above: Performed By: #### A 1C #### [facility] [address] [place] [address] Dr. Latisha Lindo CBC AUTO DIFFon 09-21-2021 BASO # 0.0 103/ul Normal 0.0-0.1 [facility] Comment on above: Performed By: #### C BC #### [facility] [address] [place] [address] Dr. Latisha Lindo Basophils/100 WBC (Bld) 0.6 % Normal 0.2-2.0 [facility] Comment on above: Performed By: #### C BC #### [facility] [address] [place] [address] Dr. Latisha Lindo EO # 0.2 103/ul Normal 0.0-0.7 [facility] Comment on above: Performed By: #### C BC #### [facility] [address] [place] [address] Dr. Latisha Lindo Eosinophils/100 WBC (Bld) 3.1 % Normal 0.9-7.0 [facility] Comment on above: Performed By: #### C BC #### [facility] [address] [place] [address] Dr. Latisha Lindo Erythrocyte distribution width (RBC) [Ratio] 13.1 % Normal 11.0-15.0 [facility] Comment on above: Performed By: #### C BC #### [facility] [address] [place] [address] Dr. Latisha Lindo Hematocrit (Bld) [Volume fraction] 40.8 % Critically low 42.0-54.0 [facility] Comment on above: Performed By: #### C BC #### [facility] [address] [place] [address] Dr. Latisha Lindo Hemoglobin (Bld) [Mass/Vol] 13.4 g/dL Critically low 14.0-18.0 [facility] Comment on above: Performed By: #### C BC #### [facility] [address] [place] [address] Dr. Latisha Lindo IG # 0.02 10e3/ul Normal 0.00-0.03 [facility] Comment on above: Performed By: #### C BC #### [facility] [address] [place] [address] Dr. Latisha Lindo IG % 0.3 % Normal 0.0-0.5 [facility] Comment on above: Performed By: #### C BC #### [facility] [address] [place] [address] Dr. Latisha Lindo LYMPH # 1.5 103/ul Normal 1.2-3.8 [facility] Comment on above: Performed By: #### C BC #### [facility] [address] [place] [address] Dr. Latisha Lindo Lymphocytes/100 WBC (Bld) 22.3 % Normal 20.5-60.0 [facility] Comment on above: Performed By: #### C BC #### [facility] [address] [place] [address] Dr. Latisha Lindo MANUAL DIFF REQ NO Normal [facility] Comment on above: Performed By: #### C BC #### [facility] [address] [place] [address] Dr. Latisha Lindo MCH (RBC) [Entitic mass] 28.8 pg Normal 25.9-34.0 [facility] Comment on above: Performed By: #### C BC #### [facility] [address] [place] [address] Dr. Latisha Lindo MCHC (RBC) [Mass/Vol] 32.8 g/dL Normal 29.9-35.2 [facility] Comment on above: Performed By: #### C BC #### [facility] [address] [address] [address] Latisha Lindo MCV (RBC) [Entitic vol] 87.6 fL Normal 80.0-94.0 [facility] Comment on above: Performed By: #### C BC #### [facility] [address] [address] [address] Latisha Lindo MONO # 0.6 103/ul Normal 0.3-0.8 [facility] Comment on above: Performed By: #### C BC #### [facility] [address] [address] [address] Latisha Lindo Monocytes/100 WBC (Bld) 8.3 % Normal 1.7-12.0 [facility] Comment on above: Performed By: #### C BC #### [facility] [address] [address] [address] Latisha Lindo NEUT # 4.4 103/ul Normal 1.4-6.5 [facility] Comment on above: Performed By: #### C BC #### [facility] [address] [address] [address] Latisha Lindo Neutrophils/100 WBC (Bld) 65.4 % Normal 43.0-75.0 [facility] Comment on above: Performed By: #### C BC #### [facility] [address] [address] [address] Latisha Lindo Platelet mean volume (Bld) [Entitic vol] 9.7 fL Normal 9.5-13.5 [facility] Comment on above: Performed By: #### C BC #### [facility] [address] [address] [address] Latisha Lindo PLT 253 103/ul Normal 150-450 [facility] Comment on above: Performed By: #### C BC #### [facility] [address] [address] [address] Latisha Lindo RBC 4.66 106/ul Critically low 4.70-6.10 [facility] Comment on above: Performed By: #### C BC #### [facility] [address] [place] [address] Dr. Latisha Lindo WBC 6.8 103/ul Normal 4.0-11.0 [facility] Comment on above: Performed By: #### C BC #### [facility] [address] [address] [address] Latisha Lindo GLYCOHEMOGLOBIN A1Con 2021 ADA RECOMMENDATION SEE BELOW Normal [facility] Comment on above: Result Comment: ADA RECOMMENDED LIMIT 4.0 - 6.0 ADA THERAPEUTIC TARGET < 7.0 ACTION SUGGESTED > 7.0 Performed By: #### A 1C #### [facility] [address] [place] [address] Dr. Latisha Lindo Glucose [Mass/Vol] 189 mg/dL Normal [facility] Comment on above: Performed By: #### A 1C #### [facility] [address] [place] [address] Dr. Latisha Lindo HbA1c (Bld) [Mass fraction] 8.2 % Critically high 4.5-6.2 [facility] Comment on above: Performed By: #### A 1C #### [facility] [address] [place] [address] Dr. Latisha Lindo LIPID PROFILEon 09-21-2021 CHOL-HDL RATIO NORM SEE BELOW Normal [facility] Comment on above: Result Comment: 3.3 - 4.4 LOW RISK 4.4 - 7.1 AVERAGE RISK 7.1 - 11.0 MODERATE RISK >11.0 HIGH RISK Performed By: #### L IPID, BMP #### [facility] [address] [place] [address] Dr. Latisha Lindo Cholesterol [Mass/Vol] 126 mg/dL Normal <=200 [facility] Comment on above: Performed By: #### L IPID, BMP #### [facility] [address] [place] [address] Dr. Latisha Lindo Cholesterol in HDL [Mass/Vol] 54 mg/dL Normal 40-60 [facility] Comment on above: Performed By: #### L IPID, BMP #### [facility] [address] [address] [address] Latisha Lindo Cholesterol in LDL [Mass/Vol] 58.2 mg/dL Normal [facility] Comment on above: Performed By: #### L IPID, BMP #### [facility] [address] [place] [address] Dr. Latisha Lindo Cholesterol.total/Cho lesterol in HDL [Mass ratio] 2.3 {ratio} Normal [facility] Comment on above: Performed By: #### L IPID, BMP #### [facility] [address] [place] [address] Dr. Latisha Lindo HDL NORMAL > or = 60 mg/dl - LOW CARDIOVASCULAR RISK <40 mg/dl - HIGH CARDIOVASCULAR RISK Normal [facility] Comment on above: Performed By: #### L IPID, BMP #### [facility] [address] [place] [address] Dr. Latisha Lindo LDL CALC NORMAL SEE BELOW Normal [facility] Comment on above: Result Comment: <100 mg/dl OPTIMAL 100 - 129 mg/dl NEAR OR ABOVE OPTIMAL 130 - 159 mg/dl BORDERLINE HIGH 160 - 189 mg/dl HIGH >190 mg/dl VERY HIGH Performed By: #### L IPID, BMP #### [facility] [address] [place] [address] Dr. Latisha Lindo Triglyceride [Mass/Vol] 69 mg/dL Normal <=150 [facility] Comment on above: Performed By: #### L IPID, BMP #### [facility] [address] [place] [address] Dr. Latisha Lindo VLDL CALC 13.8 mg/dL Normal [facility] Comment on above: Performed By: #### L IPID, BMP #### [facility] [address] [address] [address] Latisha Lindo PROF CHEM 8 (BAS METB)on Anion gap [Moles/Vol] 16.1 mmol/L Normal [facility] Comment on above: Performed By: #### L IPID, BMP #### [facility] [address] [place] [address] Dr. Latisha Lindo Calcium [Mass/Vol] 9.8 mg/dL Normal 8.5-10.1 [facility] Comment on above: Performed By: #### L IPID, BMP #### [facility] [address] [place] [address] Dr. Latisha Lindo Chloride [Moles/Vol] 103 mmol/L Normal 98-107 [facility] Comment on above: Performed By: #### L IPID, BMP #### [facility] [address] [place] [address] Dr. Latisha Lindo CO2 [Moles/Vol] 25.7 mmol/L Normal 21.0-32.0 [facility] Comment on above: Performed By: #### L IPID, BMP #### [facility] [address] [place] [address] Dr. Latisha Lindo Creatinine [Mass/Vol] 1.02 mg/dL Normal 0.70-1.30 [facility] Comment on above: Performed By: #### L IPID, BMP #### [facility] [address] [place] [address] Dr. Latisha Lindo EGFR-AF MALTESE >60 Normal >=60 [facility] Comment on above: Performed By: #### L IPID, BMP #### [facility] [address] [place] [address] Dr. Latisha Lindo EGFR-NON AF MALTESE >60 Normal >=60 [facility] Comment on above: Performed By: #### L IPID, BMP #### [facility] [address] [place] [address] Dr. Latisha Lindo Glucose [Mass/Vol] 179 mg/dL Critically high 74-106 [facility] Comment on above: Performed By: #### L IPID, BMP #### [facility] [address] [place] [address] Dr. Latisha Lindo Potassium [Moles/Vol] 3.8 mmol/L Normal 3.5-5.1 [facility] Comment on above: Performed By: #### L IPID, BMP #### [facility] [address] [place] [address] Dr. Latisha Lindo Sodium [Moles/Vol] 141 mmol/L Normal 136-145 [facility] Comment on above: Performed By: #### L IPID, BMP #### [facility] [address] [address] [address] Latisha Lindo Urea nitrogen [Mass/Vol] 21.0 mg/dL Critically high 7.0-18.0 [facility] Comment on above: Performed By: #### L IPID, BMP #### [facility] [address] [address] [address] Latisha Lindo Urea nitrogen/Creatinine [Mass ratio] 20.6 mg/mg Normal [facility] Comment on above: Performed By: #### L IPID, BMP #### [facility] [address] [place] [address] Dr. Latisha Lindo GLYCOHEMOGLOBIN A1Con 2021 ADA RECOMMENDATION ADA THERAPEUTIC TARGET 6.0 - 7.0 ACTION SUGGESTED > 7.0 Normal [facility] Comment on above: Performed By: #### A 1C #### [facility] [address] [address] [address] Latisha Lindo Glucose [Mass/Vol] 171 mg/dL Normal [facility] Comment on above: Performed By: #### A 1C #### [facility] [address] [place] [address] Dr. Latisha Lindo HbA1c (Bld) [Mass fraction] 7.6 % Critically high <=6.0 [facility] Comment on above: Performed By: #### A 1C #### [facility] [address] [place] [address] Dr. Latisha Lindo Colonoscopy w/ or w/o biopsy on 05-25-2013 Transverse colon polyp Rectal polyp Otherwise normal [facility] This order was created through External Result Entry [facility] Vital Signs Date Time Vital Sign Value Performing Clinician Ramiro berumen 04-16-2024 09:56-0500 Diastolic blood pressure 82 mm[Hg] Anika Monzon MAINTENANCE PIPEFITTER Work Phone: [facility] 04-16-2024 09:56-0500 Systolic blood pressure 132 mm[Hg] Anika Monzon MAINTENANCE PIPEFITTER Work Phone: [facility] 04-16-2024 09:23-0500 Body mass index (BMI) [Ratio] 28.52 kg/m2 Anika Monzon MAINTENANCE PIPEFITTER Work Phone: [facility] 04-16-2024 09:23-0500 Body temperature 98.49 [degF] Anika Angelz MAINTENANCE PIPEFITTER Work Phone: [facility] 04-16-2024 09:23-0500 Body weight 92.76 kg Anika Monzon MAINTENANCE PIPEFITTER Work Phone: [facility] 04-16-2024 09:23-0500 Heart rate 66 /min Anika Monzon MAINTENANCE PIPEFITTER Work Phone: [facility] 04-16-2024 09:23-0500 Respiratory rate 18 /min Anika Monzon MAINTENANCE PIPEFITTER Work Phone: [facility] 04-16-2024 09:23-0500 SaO2% (BldA) [Mass fraction] 99 % Anika Monzon MAINTENANCE PIPEFITTER Work Phone: [facility] 10-15-2023 09:36-0400 Body height 180.3 cm Selina Newtonpatrick MAINTENANCE PIPEFITTER Work Phone: [facility] 10-15-2023 09:36-0400 Body mass index (BMI) [Ratio] 28.31 kg/m2 Selina Richmond MAINTENANCE PIPEFITTER Work Phone: [facility] 10-15-2023 09:36-0400 Body temperature 96.49 [degF] Selina Richmond MAINTENANCE PIPEFITTER Work Phone: [facility] 10-15-2023 09:36-0400 Body weight 92.08 kg Selina Richmond MAINTENANCE PIPEFITTER Work Phone: [facility] 10-15-2023 09:36-0400 Diastolic blood pressure 80 mm[Hg] Selina Richmond MAINTENANCE PIPEFITTER Work Phone: [facility] 10-15-2023 09:36-0400 Heart rate 71 /min Selina Agk MAINTENANCE PIPEFITTER Work Phone: [facility] Comment on above: 98% O2 10-15-2023 09:36-0400 Systolic blood pressure 120 mm[Hg] Selina Agk MAINTENANCE PIPEFITTER Work Phone: [facility] Encounters Encounter Date Encounter Type Care Provider Facility Start: 04-28-2024 End: 04-28-2024 Clinisync Result Encounter Anika Eckertjermaine MAINTENANCE PIPEFITTER Work Phone: [facility] External Department Unsolicited Start: 04-28-2024 End: 04-28-2024 Clinisync Result Encounter Anika Nicolás MAINTENANCE PIPEFITTER Work Phone: [facility] External Department Unsolicited Start: 04-16-2024 End: 04-16-2024 Bamboo flowsheet Anika Bacajose MAINTENANCE PIPEFITTER Work Phone: [facility] Start: 04-16-2024 End: 04-16-2024 Bamboo flowsheet Anika Bacajose MAINTENANCE PIPEFITTER Work Phone: [facility] Start: 04-16-2024 End: 04-16-2024 Patient encounter status Anika Bacajose MAINTENANCE PIPEFITTER Work Phone: [facility] Healthcare Start: 04-16-2024 End: 04-16-2024 Periodic preventive med est patient 40-64yrs Anika Bacajose MAINTENANCE PIPEFITTER Work Phone: [facility] Comment on above: Wellness examination (Primary Dx); HTN (hypertension), benign (CMS/HCC); Type 2 diabetes mellitus without complication, without long-term current use of insulin (CMS/HCC); Mixed hyperlipidemia (CMS/HCC); Prostate cancer screening; Stage 2 hypertension (CMS/HCC); Type 2 diabetes mellitus without complications (CMS/HCC); Essential (primary) hypertension (CMS/HCC) Start: 04-16-2024 End: 04-16-2024 ambulatory ANIKA NICOLÁS Not Available Start: 03-04-2024 End: 03-04-2024 Refill Selina Lancastertrick MAINTENANCE PIPEFITTER Work Phone: [facility] Comment on above: Stage 2 hypertension (CMS/HCC) Start: 03-02-2024 End: 03-02-2024 Refill Selina Richmond MAINTENANCE PIPEFITTER Work Phone: [facility] Comment on above: Type 2 diabetes jorje itus without complication, without long- term current use of insulin (CMS/HCC) Essential (primary) hypertension (CMS/HCC) Type 2 diabetes jorje itus without complication, without long-term current use of insulin (CMS/HCC); Type 2 diabetes mellitus without complications (CMS/HCC) Start: 12-09-2023 End: 12-10-2023 [facility]cal[facility] Comment on above: Type 2 diabetes jorje itus without complications (CMS/HCC); Type 2 diabetes mellitus without complication, without long-term current use of insulin (CMS/HCC) Start: 12-03-2023 End: 12-04-2023 Refill Selina Lancastertrick MAINTENANCE PIPEFITTER Work Phone: [facility] Comment on above: Stage 2 hypertension (CMS/HCC) Start: 11-20-2023 End: 11-20-2023 Refill Shalonda Tuttle [facility] Comment on above: Stage 2 hypertension (CMS/HCC) Start: 10-15-2023 End: 10-15-2023 Bamboo flowsheet Selina Langzpatrick MAINTENANCE PIPEFITTER Work Phone: [facility] Start: 10-15-2023 End: 10-15-2023 Bamboo flowsheet Selina Richmond MAINTENANCE PIPEFITTER Work Phone: [facility] Start: 10-15-2023 End: 10-15-2023 Office outpatient visit 25 minutes Selina gAk MAINTENANCE PIPEFITTER Work Phone: [facility] Comment on [...] Orders Only Shaikh Sheila RODRIGUEZ Work Phone: [facility] Comment on above: Type 2 diabetes jorje itus without complication, without long- term current use of insulin (CMS/[facility]) (Primary Dx) Start: 02-06-2023 Patient encounter status Shaik ailyn Sosa MD Work Phone: [facility] Start: 03-13-2022 End: 03-14-2022 ambulatory WOO H FAWWAD Facility:[facility]1 Start: 09-21-2021 End: 09-22-2021 ambulatory WOO H FAWWAD Facility:[facility] Start: 05-29-2021 End: 05-30-2021 ambulatory WOO H FAWWAD Facility:[facility] Start: 05-25-2013 Conversion Encounter Joshua guerrero MD Work Phone: [facility] Start: 05-25-2013 Legacy Encounter Joshua martinez MD Work Phone: [facility] Procedures Date Procedure Procedure Detail Performing Clinician Start: 04-28-2024 ALL LIPID PROFILE (FASTING) Anika Monzon MAINTENANCE PIPEFITTER Work Phone: Start: 04-28-2024 [facility] CMP (CMP) (FOR [facility] USE) Anika Monzon MAINTENANCE PIPEFITTER Work Phone: Start: 04-16-2024 Hemoglobin glycosyla fletcher a1c Anika Monzon MAINTENANCE PIPEFITTER Work Phone: Start: 09-17-2023 Colonoscopy Selina baldwin MAINTENANCE PIPEFITTER Work Phone: Start: 05-25-2013 COLONOSCOPY W/ OR W/ O BIOPSY Joshua Hsieh MD Work Phone: Plan of Treatment Date Care Activity Detail Author Start: 09-16-2033 Screening for malign ant neoplasm of colon [facility] Start: 03-03-2026 Glaucoma screening Diabetes: R etinopathy Screening [facility] Start: 10-14-2024 Hemoglobin A1c measurement Diabetes: Hemoglobin A1C [facility] Start: 08-01-2024 Urine screening for protein Diabetes: Urine Protein Screening [facility] Start: 07-14-2024 End: 07-14-2024 Patient encounter procedure 07/14/2024 9:40 AM EDT Office Visit [facility] [address] [place] [id number] Anika Monzon NP [address] [place] [id number] [facility] Start: 04-16-2024 End: 04-16-2025 Comprehensive metabolic 2000 panel - Serum or Plasma Comprehensive metabolic panel Lab Routine Wellness examination Expected: 04/16/2024 (Approximate), Expires: 04/16/2025 [facility] Comment on above: Expected: 04/16/2024 (Approximate), Expires: 04/16/2025 Start: 04-16-2024 End: 04-16-2025 Lipid 1996 panel - Serum or Plasma Lipid panel Lab Routine Wellness examination Expected: 04/16/2024 (Approximate), Expires: 04/16/2025 [facility] Work Phone: Comment on above: Expected: 04/16/2024 (Approximate), Expires: 04/16/2025 Start: 04-16-2024 End: 04-16-2025 Microalbumin/Creatinine panel in random Urine Microalbumin / creatinine, urine ratio Lab Routine Wellness examination Expected: 04/16/2024 (Approximate), Expires: 04/16/2025 [facility] Comment on above: Expected: 04/16/2024 (Approximate), Expires: 04/16/2025 Start: 04-16-2024 End: 04-16-2025 Prostate specific Ag [Mass/volume] in Serum or Plasma PSA Lab Routine Wellness examination Expected: 04/16/2024 (Approximate), Expires: 04/16/2025 [facility] Comment on above: Expected: 04/16/2024 (Approximate), Expires: 04/16/2025 Start: 04-16-2024 End: 04-16-2025 Urinalysis complete panel - Urine Urinalysis with reflex microscopic (clean catch) Lab Routine Wellness examination Expected: 04/16/2024 (Approximate), Expires: 04/16/2025 [facility] Comment on above: Expected: 04/16/2024 (Approximate), Expires: 04/16/2025 Start: 04-16-2024 End: 04-16-2024 Patient encounter procedure [facility] Comment on above: HTN (hypertension), benign (CMS/HCC) (Primary Dx); Type 2 diabetes mellitus without complication, without long-term current use of insulin (CMS/HCC); Mixed hyperlipidemia (CMS/HCC); Prostate cancer screening; Wellness examination Start: 03-21-2024 Glaucoma screening Diabetes: R etinopathy Screening [facility] Start: 02-01-2024 Hemoglobin A1c measurement Diabetes: Hemoglobin A1C [facility] Start: 12-20-2023 Screening for malign ant neoplasm of colon [facility] Start: 10-26-2023 Urine screening for protein Diabetes: Urine Protein Screening [facility] Start: 10-20-2023 Influenza vaccination Influenza Vacc ine (#1) [facility] Start: 10-15-2023 End: 10-15-2023 Patient encounter procedure 10/15/2023 9:30 AM EDT Office Visit [facility] [address] [place] [phone] Selina Richmond NP [address] [place] [address] Arrived [facility] Comment on above: Arrived Start: 05-08-2023 End: 05-08-2023 Patient encounter procedure 05/08/2023 10:00 AM EDT Office Visit [facility] [address] [place] [address] Shaikh Sosa MD [address] [place] [address] [facility] Start: 05-07-2023 Hemoglobin A1c measurement Diabetes: Hemoglobin A1C [facility] Start: 1960 Screening for malign ant neoplasm of colon [facility] Healthcare Immunizations Immunization Date Immunization Notes Care Provider [facility] 02-04-2024 influenza, seasonal, injectable, preservative free Anika Aichholz MAINTENANCE PIPEFITTER Work Phone: [facility] 02-04-2024 influenza virus vacc ine, unspecified formulation Anika Aichholz MAINTENANCE PIPEFITTER Work Phone: [facility] 01-27-2023 influenza, injectabl e, quadrivalent, preservative free Selina Richmond MAINTENANCE PIPEFITTER Work Phone: [facility] 01-27-2023 influenza virus vacc ine, unspecified formulation Selina Richmond MAINTENANCE PIPEFITTER Work Phone: [facility] 01-22-2019 influenza, injectabl e, quadrivalent, preservative free Shaikh Sheila RODRIGUEZ Work Phone: [facility] 01-22-2019 zoster vaccine recombinant Shaikh Sheila RODRIGUEZ Work Phone: [facility] 12-18-2017 influenza virus vacc ine, unspecified formulation Selina Richmond MAINTENANCE PIPEFITTER Work Phone: [facility] 12-18-2017 influenza, injectabl e, quadrivalent, contains preservative Shaikh Sheila RODRIGUEZ Work Phone: [facility] 12-06-2016 influenza virus vacc ine, unspecified formulation Selina Richmond MAINTENANCE PIPEFITTER Work Phone: [facility] 12-06-2016 influenza, injectabl e, quadrivalent, contains preservative Shaikh Sheila RODRIGUEZ Work Phone: [facility] 12-07-2015 influenza virus vacc ine, unspecified formulation Selina Richmond MAINTENANCE PIPEFITTER Work Phone: [facility] 12-07-2015 influenza, injectabl e, quadrivalent, contains preservative Shaikh Sheila RODRIGUEZ Work Phone: [facility] 05-05-2015 tetanus toxoid, redu geraldine diphtheria toxoid, and acellular pertussis vaccine, adsorbed Shaikh Sheila RODRIGUEZ Work Phone: [facility] 11-05-2014 influenza virus vacc ine, unspecified formulation Selina Richmond MAINTENANCE PIPEFITTER Work Phone: [facility] 11-05-2014 influenza virus vacc ine, whole virus Shaikh Sheila RODRIGUEZ Work Phone: [facility] 12-10-2013 pneumococcal polysaccharide vaccine, 23 valent Shaikh Sheila RODRIGUEZ Work Phone: [facility] Payers Date Payer Category Payer Private Health Insurance [employer]UM [id number] 2022 Unknown [facility] [id number] 2022-Present [phone] [place] [address] [id number] 2022 Unknown [id number] 1960 Unknown [id number] 1960 Unknown [id number] [id number] 1960 Unknown [id number] 1960 Unknown [id number] 1960 Unknown [id number] [id number] 1960 Unknown [id number] [id number] 1960 Unknown [id number] [id number] 1960 Unknown [id number] [id number] 1959 Unknown [id number] Social History Date Type Detail Facility Tobacco smoking stat [facility] Tobacco smoking consumption unknown [facility] Start: 1960 Sex Assigned At Not on file [facility] Start: 02-04-2023 End: 04-10-2024 Gender identity Not on file [facility] Start: 02-06-2023 Tobacco smoking stat [facility] Never smoked tobacco [facility] [...] each by Other route in the morning. [id number] Start: 03-22-2022 1 each by Other route in the morning. [id number] Start: 01-26-2023 1 each by Other route Daily [id number] Start: 06-18-2023 End: 01-04-2024 Clinical Notes 10-15-2023 [...] There is no history of kidney disease, CAD/TN, CVA or heart failure. SUBJECTIVE: MEDICATIONS: Current [...] detergent Allergic reaction to possibly a fabric yard cleaner. No new drugs or food involved [...] complication, without long-term current use of insulin ([facility]) Check blood sugars daily, notify if <70 [...] meds: amlodipine, losartan documented in this encounter [facility] 04-16-2024 Instructions Anika Monzon NP - 04/16/2024 9:20 AM EST No med dose changes Keep up the good work Labs: fasting 8 hours documented in this encounter [facility] 11-20-2023 Telephone encount er Note Pt called needing a refill on his Lozartan 100 mg tablet. [facility] [place] SERENA:10/15/2023 NOV: [facility] 11-20-2023 Miscellaneous Notes Formattin g of this note might be different from the original. Pt called needing a refill on his Lozartan 100 mg tablet. [facility] [place]. SERENA:10/15/2023 NOV: documented in this encounter [facility] 10-15-2023 History of Presen t illness [...] ALBUMIN GLOBULIN RATIO 1.1 1.1 Resulting Agency [facility] DMII: Component Ref Range & Units 2 [...] infusions for now. documented in this encounter [facility] 10-15-2023 Instructions Selina Richmond NP - 10/15/2023 [...] and simple sugars. documented in this encounter [facility] Evaluation note Diagnosis Type 2 diabetes mellitus without complication, without long-term current use of insulin ([facility]/HCC)- Primary documented in this encounter [facility] HealthcareEvaluation note* Diagnosis Stage 2 hypertension (CMS/HCC) documented in this encounter [facility] HealthcareEvaluation note* Diagnosis Type 2 diabetes [...] 2 hypertension (CMS/HCC) documented in this encounter [facility] HealthcareEvaluation note* Diagnosis Type 2 diabetes mellitus without complication, without long-term current use of insulin (CMS/HCC)- Primary Stage 2 hypertension (CMS/HCC) Mixed hyperlipidemia (CMS/HCC) Mixed hyperlipidemia Wellness examination Hypokalemia- Primary Hypopotassemia Stage 2 hypertension (CMS/HCC) Type 2 diabetes mellitus without complication, without long-term current use of insulin ([facility]/HCC) Mixed hyperlipidemia ([facility]/HCC) Mixed hyperlipidemia Hypokalemia- Primary Hypopotassemia Microcytic anemia Unspecified iron deficiency anemia Stage 2 hypertension (CMS/HCC) Normocytic anemia- Primary Unspecified anemia Mixed hyperlipidemia (CMS/HCC)- Primary Mixed hyperlipidemia Normocytic anemia Unspecified anemia Type 2 diabetes mellitus without complication, without long-term current use of insulin ([facility]/HCC) HTN (hypertension), benign ([facility]/HCC) Essential hypertension, benign Type 2 diabetes mellitus without complications ([facility]/HCC) Type 2 diabetes mellitus without complication, without long-term current use of insulin ([facility]/HCC) documented in this encounter [facility] HealthcareEvaluation note* Diagnosis Mixed hyperlipidemia (CMS/HCC)- Primary Mixed hyperlipidemia Normocytic anemia Unspecified anemia Type 2 diabetes mellitus without complication, without long-term current use of insulin ([facility]) HTN (hypertension), benign ([facility]/HCC) Essential hypertension, benign documented in this encounter [facility] HealthcareEvaluation note* Diagnosis Type 2 diabetes mellitus without complication, without long-term current use of insulin ([facility]/HCC)- Primary Stage 2 hypertension (CMS/HCC) Mixed hyperlipidemia ([facility]/HCC) Mixed hyperlipidemia Wellness examination Hypokalemia- Primary Hypopotassemia Stage 2 hypertension (CMS/HCC) Type 2 diabetes mellitus without complication, without long-term current use of insulin ([facility]/HCC) Mixed hyperlipidemia ([facility]/HCC) Mixed hyperlipidemia Hypokalemia- Primary Hypopotassemia Microcytic anemia Unspecified iron deficiency anemia Stage 2 hypertension ([facility]/HCC) Normocytic anemia- Primary Unspecified anemia Mixed hyperlipidemia (CMS/HCC)- Primary Mixed hyperlipidemia Normocytic anemia Unspecified anemia Type 2 diabetes mellitus without complication, without long-term current use of insulin ([facility]/HCC) HTN (hypertension), benign ([facility]/HCC) Essential hypertension, benign Type 2 diabetes mellitus without complication, without long-term current use of insulin ([facility]/HCC) documented in this encounter [facility] HealthcareEvaluation note* Diagnosis Type 2 diabetes mellitus without complication, without long-term current use of insulin ([facility]/HCC)- Primary Stage 2 hypertension (CMS/HCC) Mixed hyperlipidemia ([facility]/HCC) Mixed hyperlipidemia Wellness examination Hypokalemia- Primary [...] complication, without long-term current use of insulin ([facility]/HCC) HTN (hypertension), benign (CMS/HCC) Essential hypertension, benign Essential (primary) hypertension (CMS/HCC) Unspecified essential hypertension documented in this encounter [facility] HealthcareEvaluation note* Diagnosis Type 2 diabetes mellitus without complication, without long-term current use of insulin (CMS/HCC)- Primary Stage 2 hypertension (CMS/HCC) Mixed hyperlipidemia (CMS/HCC) Mixed hyperlipidemia Wellness examination Hypokalemia- Primary Hypopotassemia Stage 2 hypertension (CMS/HCC) Type 2 diabetes mellitus without complication, without long-term current use of insulin ([facility]/HCC) Mixed hyperlipidemia ([facility]/HCC) Mixed hyperlipidemia Hypokalemia- Primary Hypopotassemia Microcytic anemia Unspecified iron deficiency anemia Stage 2 hypertension (CMS/HCC) Normocytic anemia- Primary Unspecified anemia Mixed hyperlipidemia (CMS/HCC)- Primary Mixed hyperlipidemia Normocytic anemia Unspecified anemia Type 2 diabetes mellitus without complication, without long-term current use of insulin ([facility]/HCC) HTN (hypertension), benign (CMS/HCC) Essential hypertension, benign Type 2 diabetes mellitus without complication, without long-term current use of insulin ([facility]/HCC) Type 2 diabetes mellitus without complications (CMS/HCC) documented in this encounter [facility] HealthcareEvaluation note* Diagnosis Type 2 diabetes [...] CREATED AUTHOR AUTHOR'S ORGANIZ ATION 04/18/2024 [facility] Care Teams (unrecognized sec tion and content) Zoo Veterinarian Relationship Specialty Start Date End Date Joshua Hsieh MD [address] [place] [id number] PCP - General 10/12/15 04/19/22 Zoo Veterinarian Relationship Specialty Start Date End Date Shaikh Sosa MD PCP - General Internal Medicine 08/24/22 Zoo Veterinarian Relationship Specialty Start Date End Date Brenton Barroso MD [address] [place] [phone] PCP - General Family Medicine 09/23/23 Selina Richmond NP [address] [place] [address] Nurse Practitioner Family Medicine 09/23/23 Zoo Veterinarian Relationship Specialty Start Date End Date Brenton Barroso MD [address] [place] [address] PCP - General Family Medicine 09/23/23 Selina Richmond NP [address] [place] [address] Nurse Practitioner Family Medicine 09/23/23 Zoo Veterinarian Relationship Specialty Start Date End Date Brenton Barroso MD [address] [place] [address] PCP - General Family Medicine 09/23/23 Selina Richmond NP [address] [place] [address] Nurse Practitioner Family Medicine 09/23/23 Zoo Veterinarian Relationship Specialty Start Date End Date Brenton Barroso MD [address] [place] [address] PCP - General Family Medicine 09/23/23 Selina Richmond NP [address] [place] [address] Nurse Practitioner Family Medicine 09/23/23 Zoo Veterinarian Relationship Specialty Start Date End Date Brenton Barroso MD [address] [place] [phone] PCP - General Family Medicine 09/23/23 Selina Richmond NP [address] [place] [address] Nurse Practitioner Family Medicine 09/23/23 Zoo Veterinarian Relationship Specialty Start Date End Date Brenton Barroso MD [address] [place] [phone] PCP - General Family Medicine 09/23/23 Selnia Richmond NP [address] [place] [address] Nurse Practitioner Family Medicine 09/23/23 Zoo Veterinarian Relationship Specialty Start Date End Date Brenton Barroso MD [address] [place] [phone] PCP - General Family Medicine 09/23/23 Selina Richmond NP [address] [place] [address] Nurse Practitioner Family Medicine 09/23/23 Zoo Veterinarian Relationship Specialty Start Date End Date Brenton Barroso MD [address] [place] [phone] PCP - General Family Medicine 09/23/23 Selina Richmodn NP [address] [place] [phone] Nurse Practitioner Family Medicine 09/23/23 Zoo Veterinarian Relationship Specialty Start Date End Date Brenton Barroso MD [address] [place] [phone] PCP - General Family Medicine 09/23/23 Selina Richmond NP [address] [place] [address] Nurse Practitioner Family Medicine 09/23/23 Zoo Veterinarian Relationship Specialty Start Date End Date Brenton Barroso MD [address] [place] [phone] PCP - General Family Medicine 09/23/23 Anika Monzon NP [address] [place] [phone] Nurse Practitioner Family Medicine 04/16/24 Reason for [...] BE BASED ON THE PRIMARY CLINICAL RECORDS. [facility] [employer] [facility]. provides no warranty or guarantee of the accuracy or completeness of information in this document.
== END 2024-05-13 07:57 | disposition home or self-care (01) ==
LOC: HEMC 07:37
PROVIDERS: PCP Nurse Practitioner; Visit Provider Internal Medicine Hematology & Oncology
DX: D64.9 Anemia, unspecified (principal); R19.5 Other fecal abnormalities; Z90.49 Acquired absence of other specified parts of digestive tract; Z80.6 Family history of leukemia; Z80.0 Family history of malignant neoplasm of digestive organs; D50.9 Iron deficiency anemia, unspecified
CPT/HCPCS: G0463